=== PATIENT | male | born 1980 | race Caucasian/White ===

== ENCOUNTER 2023-07-10 15:54 | Emergency (ER) | payer OTHER, SELFPAY ==
[2023-07-10 16:11] VITALS: BP 130/89; PULSE 72; RESP 16; TEMP 35.9; O2SAT 99
--- NOTE | 2023-07-10 16:24 | ED.EXTPRO ---
HPI - Extremity Problem General Chief complaint: Extremity Problem,Nontraumatic Stated complaint: right lower leg pain Time Seen by Provider: 07/10/23 16:29 Source: patient and RN notes reviewed Mode of arrival: ambulatory Limitations: no limitations History of Present Illness HPI Narrative: 6-year-old male presents concern for pain and swelling to the right anterior lower leg. Reports he noticed it last Monday. Reports the pain and swelling are getting worse. Reports he just started a job where he is on his feet more. He reports he has tried [id number] remedies, compression without relief. Reports it is tender to touch. Denies warmth, redness, calf pain, calf swelling, ankle swelling. MD Complaint: extremity pain Related Data Home Medications Medication Instructions Recorded Confirmed No Home Medications 07/10/23 07/10/23 Allergies Allergy/AdvReac Type Severity Reaction Status Date / Time levofloxacin Allergy Mild Nausea and Verified 07/10/23 16:00 Vomiting DARVOCET Allergy Severe Nausea and Uncoded 07/10/23 16:00 Vomiting MEPERIDINE HCL Allergy Mild Nausea and Uncoded 07/10/23 16:00 Vomiting Review of Systems Review of Systems: CONSTITUTIONAL: Denies malaise, chills, sweats, or fever. CARDIOVASCULAR: Denies chest pain, palpitations, or edema. RESPIRATORY: Denies cough or dyspnea. SKIN: Denies rash or itching, bruising, redness MUSCULOSKELETAL: Reports right lower leg tenderness and swelling NEUROLOGIC: Denies numbness, weakness All systems reviewed & are unremarkable except as noted in HPI and below PMFSH Comments At time of signature, agree with nursing past medical, surgical, social and family history. There is no relevant family history pertinent to the presenting complaint Exam Narrative: GENERAL: Well-appearing, well-nourished, and in no acute distress. HEAD: Normocephalic, atraumatic. EYES: PERRLA, conjunctivae clear NECK: Supple. CHEST: Speaks in full sentences. No respiratory distress. HEART: Regular rate and rhythm. Normal and equal peripheral pulses. EXTREMITIES: Right lower extremity has normal strength and sensation, normal range of motion. Localized edema and tenderness to the anterior right lower extremity. Proximally 2 cm in diameter area of fluctuation noted to the right anterior lower leg. No erythema, warmth or ecchymosis. 5/5 strength with knee, ankle, digit flexion and extension. Normal sensation with sensitivity to light touch and pain. No open wounds, no skin tenting, no devitalized tissue or atrophy, no trophic changes, no obvious deformity, alignment normal, nearby joints and structures intact. Distal pulses palpable and equal bilaterally, skin warm, dry, pink. Capillary refill less than 3 seconds. SKIN: Warm, dry, no rash. NEURO: Alert and oriented x3. PSYCH: Normal mood and affect Extrem: Upper/lower leg/hip images: 1. Approximately 2 cm area of fluctuation with sharp margins noted, no erythema, induration, warmth or suspicion for infection. Surrounded by a proximally 10 cm of edema without induration, warmth, erythema. Course Course Emergency Course: Patient is aware of, understands and agrees to treatment plan. Anticipatory guidance given. Patient agrees to follow-up as directed and is aware of reasons to seek care at the emergency department. Portions of this record may have been created with voice recognition software Level of Care: Express Care Visit Vital Signs Vital signs: Vital Signs Temperature 96.6 F L 07/10/23 16:11 Pulse Rate 72 07/10/23 16:11 Respiratory Rate 16 07/10/23 16:11 Blood Pressure 130/89 07/10/23 16:11 Pulse Oximetry 99 07/10/23 16:11 Oxygen Delivery Room Air 07/10/23 16:11 Temperature 96.6 F L 07/10/23 16:11 Pulse Rate 72 07/10/23 16:11 Respiratory Rate 16 07/10/23 16:11 Blood Pressure 130/89 07/10/23 16:11 Pulse Oximetry 99 07/10/23 16:11 Oxygen Delivery Room Air 07/09
== END 2023-07-10 16:46 | disposition home or self-care (01) ==
PROVIDERS: Emergency Provider Nurse Practitioner
DX: R22.41 Localized swelling, mass and lump, right lower limb (principal)
CPT/HCPCS: 99211; G0463

== ENCOUNTER 2023-07-11 16:09 | Emergency (ER) | payer OTHER, SELFPAY ==
--- NOTE | 2023-07-11 16:34 | PC.NURSE ---
called for triage. no answer.
--- NOTE | 2023-07-11 16:56 | PC.NURSE ---
called pt again for triage, no answer.
== END 2023-07-11 16:56 | disposition left against medical advice (07) ==
LOC: ANHED 17:06
DX: Z53.21 Procedure and treatment not carried out due to patient leaving prior to being seen by health care provider (principal)
CPT/HCPCS: 99199

== ENCOUNTER 2023-11-13 01:27 | Inpatient (IN) | payer OTHER, SELFPAY ==
[2023-11-13] VITALS (38 sets, daily range): BP systolic 98–168; BP diastolic 55–107; PULSE 58–116; RESP 13–27; TEMP 36.1–38.7; O2SAT 90–100
--- NOTE | ~2023-11-13 | US_ITS ---
RIGHT UPPER EXTREMITY VENOUS ULTRASOUND Ordering provider: Di Vasquez APRN History: . right arm numbness, pins and needle sensation . Comparison: None. FINDINGS: --JUGULAR: Patent and free of thrombus. Normal compressibility, phasic flow and augmentation. --SUBCLAVIAN: Patent and free of thrombus. Normal compressibility, phasic flow and augmentation. --AXILLARY: Patent and free of thrombus. Normal compressibility, phasic flow and augmentation. --BRACHIAL: Patent and free of thrombus. Normal compressibility, phasic flow and augmentation. --CEPHALIC: Patent and free of thrombus. Normal compressibility, phasic flow and augmentation. --BASILIC: Thrombosed --RADIAL: Patent and free of thrombus. Normal compressibility, phasic flow and augmentation. --ULNAR: Patent and free of thrombus. Normal compressibility, phasic flow and augmentation. IMPRESSION: Thrombosed basilic vein. Otherwise, Negative right upper extremity venous US. No deep vein thrombosis. Reviewed, dictated and finalized at location A.
--- NOTE | ~2023-11-13 | CT_ITS ---
EXAMINATION: CT abdomen pelvis w con DATE: 11/13/2023 02:47 INDICATION: Right lower quadrant abdominal pain TECHNIQUE: Computed tomography (CT) of the abdomen and pelvis was performed without intravenous contr ast. Automated exposure control and iterative reconstruction technique were employed. The dose-length product was 607.49 mGy-cm. COMPARISON: None FINDINGS: Mild dependent atelectasis in the bilateral lower lobes. Heart size is normal. No pericardial or pleu ral effusion. There is refluxed fluid extending through the patent gastroesophageal junction. Visuali zed distal esophagus. Focal hepatic steatosis at the ligamentum teres. Gallbladder, spleen, pancreas, bilateral adrenal glands are normal. 8 mm left renal cyst. Nonobstructing 17 x 7 x 8 mm stone at the right ureteropelvic junction with right-sided hydronephrosis, delayed nephrogram kidney and mild per inephric stranding. Couple diverticula at the junction of the descending and sigmoid colon without ad jacent comparison to suggest diverticular colitis. Small bowel and appendix are normal. Small fat-con taining umbilical hernia. Bladder is normal. Prostatomegaly. No free intraperitoneal gas or fluid. No pathologically enlarged abdominal or pelvic lymphadenopathy. Mild lumbar and lower thoracic spondylo sis. IMPRESSION: 1. Large obstructing stone at the right ureteropelvic junction with mild right hydronephrosis and per inephric stranding. Correlate with urinalysis to exclude associated urinary tract infection. Reviewed, dictated and finalized at location A. IMPRESSION: 1. Large obstructing stone at the right ureteropelvic junction with mild right hydronephrosis and perinephric stranding. Correlate with urinalysis to exclude associated urinary tract infection.
--- NOTE | ~2023-11-13 | US_ITS ---
US abdomen limited INDICATION: Elevated liver enzymes. PROCEDURE: Realtime right upper abdominal ultrasound. COMPARISON: No prior studies for comparison. FINDINGS: The pancreas is normal without focal mass or pancreatic ductal dilation. Liver echotexture is normal without focal mass or intrahepatic biliary dilatation. There is normal directional flow i n the portal vein. The gallbladder is normal without stones, gallbladder wall thickening or pericholecystic fluid. Comm on bile duct measures 3 mm. No sonographic Hughes's sign. IMPRESSION: 1: Normal limited abdominal ultrasound. Reviewed, dictated and finalized at location B.
--- NOTE | ~2023-11-13 | XR_ITS ---
EXAMINATION: XR retrograde pyelo w/stent RT DATE: 11/13/2023 07:35 INDICATION: Right internal ureteral stent placement TECHNIQUE: Fluoroscopic images from a right internal ureteral stent placement are submitted for juanita rojas 23 seconds of fluoroscopy time. FINDINGS: There is a right double-J internal ureteral stent projecting in expected position, with proximal Wall[place] loop at the level of the renal pelvis. IMPRESSION: 1. Right internal ureteral stent placement. Please refer to real-time procedural findings for fletcher barlow. Reviewed, dictated and finalized at location B. IMPRESSION: 1. Right internal ureteral stent placement. Please refer to real-time procedu ral findings for details.
--- NOTE | ~2023-11-13 | XR_ITS ---
EXAMINATION: XR abdomen/kub 1V DATE: 11/16/2023 09:31 INDICATION: Abdominal pain TECHNIQUE: A supine view of the abdomen on 2 radiographs was obtained. COMPARISON: None. FINDINGS: Right internal ureteral stent in expected position with loops formed over the expected location of th e right renal pelvis and the bladder. 10 x 8 x 5 mm stone along side the stent at the ureteropelvic j unction. Normal bowel gas pattern. Opacities at the bilateral lung bases, right greater than left whi ch could represent atelectasis or pneumonia. Mild osteoarthritis at the right hip with subarticular c ystic change along the superolateral right acetabulum. IMPRESSION: 1. 10 x 8 x 5 mm stone at the right ureteropelvic junction alongside a right internal ureteral stent which is in expected position. 2. Bibasilar airspace opacities which could represent atelectasis or pneumonia. Reviewed, dictated and finalized at location A. IMPRESSION: 1. 10 x 8 x 5 mm stone at the right ureteropelvic junction alongside a right in ternal ureteral stent which is in expected position. 2. Bibasilar airspace opacities which could represent atelectasis or pneumonia.
--- NOTE | ~2023-11-13 | XR_ITS ---
XR abdomen/kub 1V 11/14/2023 08:26 INDICATION: Right ureteral stone TECHNIQUE: KUB COMPARISON: None FINDINGS: Bowel gas pattern is normal. There is a right internal ureteral stent in expected position. No definite renal or ureteral stone is visualized. There is no evidence of free air, mass, organomeg unruly, ascites or obstruction. No abnormal calculi are seen. The bones appear intact. IMPRESSION: 1: No acute abdominal abnormality identified. Reviewed, dictated and finalized at location B.
--- NOTE | ~2023-11-13 | CT_ITS ---
CT chest abdomen pelvis w con Ordering provider: Di Vsaquez APRN History: 43 years Male with . abdominal pain . Comparison: None. Technique: CT chest with IV contrast. CT abdomen and pelvis CT abdomen and pelvis with IV and with or al contrast. Radiation reduction technique utilized. DLP is 1488.9 mGy-cm. 100 MLO Omnipaque 350 was given IV FINDINGS: CHEST: --VISUALIZED THORACIC INLET: Normal. --MEDIASTINUM: Aorta/coronary arteries: The thoracic aorta is normal. Heart/other: The heart is not enlarged. Lymph nodes: No mediastinal or hilar adenopathy. Small prevascular lymph nodes are noted. Precarinal lymph node is seen measuring 1.8 cm. --LUNGS: Bilateral basal atelectasis with minimal bilateral pleural effusion No pulmonary nodules or masses. No infiltrates. No pneumothorax. --MUSCULOSKELETAL: Soft tissues: The superficial soft tissues are normal. Bones: normal spine.. ABDOMEN/PELVIS: --MUSCULOSKELETAL: Bones: Normal spine. No suspicious bony lytic or sclerotic lesions. Superficial soft tissues: The superficial soft tissues are normal. --UPPER ABDOMINAL ORGANS: Liver: Normal. Gallbladder: Contracted. Spleen: Normal. Stomach/duodenum: Normal. Pancreas: Normal. Adrenals: Normal. Kidneys: Tiny cysts in the left kidney midpole. Right double-J stent. Stone in the right pelvis is no hailey. --PELVIC ORGANS: The bladder is normal. No bladder stones. --BOWEL AND MESENTERY: Colon: No evidence of diverticulitis sigmoid colon. Appendix is not demonstrated. Small Bowel: Normal. No obstruction. Peritoneum/mesentery: No free air or free fluid. No mesenteric lymphadenopathy. --RETROPERITONEUM: Normal aorta. No retroperitoneal lymphadenopathy. IMPRESSION: CHEST: 1. Bilateral basal atelectasis with minimal bilateral pleural effusion. ABDOMEN/PELVIS: 1. Right double-J stent with right renal pelvis stone. 2. No acute appendicitis, diverticulitis or intestinal obstruction. Reviewed, dictated and finalized at location A.
[2023-11-13 01:43] LABS: Basophils Percent Auto 0.2 % (0.2-1.2); Eosinophils Absolute Auto 0.1 K/mm3 (0-0.3); Eosinophils Percent Auto 0.6 % (0-4.4); Hematocrit 43.9 % (42.0-52.0); Hemoglobin 14.8 g/dL (14.0-18.0); Immature Granulocyte Absolute 0.06 K/mm3 (0.00-0.031); Immature Granulocyte Percent A 0.4 % (0-0.5); Lymphocytes Absolute Auto 1.27 K/mm3 (0.9-3.2); Lymphocytes Percent Auto 8.2 % (18.3-44.2); Mean Corpuscular HGB Conc 33.7 g/dl (32-36); Mean Corpuscular Hemoglobin 31.6 pg (26-34); Mean Corpuscular Volume 93.6 fl (80-100); Mean Platelet Volume 11.3 fl (7.4-10.4); Monocytes Absolute Auto 1.6 K/mm3 (0.1-0.6); Monocytes Percent Auto 10.1 % (2.6-8.5); Neutrophils Absolute Auto 12.5 K/mm3 (1.3-6.7); Neutrophils Percent Auto 80.5 % (45.5-73.1); Platelet Count Result 215 k/mm3 (150-375); Red Blood Count 4.69 M/mm3 (4.6-6.20); Red Cell Distribution Width 13.8 % (11.5-14.5); White Blood Count 15.5 K/mm3 (4.5-10.0)
[2023-11-13 01:53] LABS: Alanine Aminotransferase 30 U/L (6-50); Albumin Level 4.2 g/dL (3.5-5.1); Alkaline Phosphatase 69 U/L (38-126); Anion Gap 10 mmol/L (4-12); Aspartate Amino Transferase 29 U/L (17-59); Bilirubin,Total 1.1 mg/dL (0.2-1.3); Blood Urea Nitrogen 21 mg/dL (9-20); Calcium 9.1 mg/dL (8.4-10.2); Carbon Dioxide 25 mmol/L (22-30); Chloride 102 mmol/L (98-107); Estimated CRCL calculation 98 ml/min; Estimated Glomerular Filt Rate > 60; Glucose 122 mg/dL (65-110); Lipase 50 U/L (23-300); Potassium 3.8 mmol/L (3.4-5.0); Sodium 137 mmol/L (137-145)
[2023-11-13] MEDS: SODIUM CHLORIDE 0.9% IV 3,000 ML 999 ML IV CONT (02:20)
[2023-11-13] MEDS: HYDROmorphone HCL INJ (*CRX) 1 MG/ML SYR IV PUSH ×3 (02:21→04:07)
[2023-11-13] MEDS: ONDANSETRON INJ 4 MG/2 ML VIAL IV PUSH (02:21)
--- NOTE | 2023-11-13 02:31 | PC.NURSE ---
Patient taken to CT via stretcher at this time.
--- NOTE | 2023-11-13 02:41 | ED.GENADULT ---
HPI - General Adult General Chief complaint: Abdominal Pain Stated complaint: RLQ ABD PAIN, TENDER TO PALPATION Time Seen by Provider: 11/13/23 01:44 History of Present Illness HPI narrative: This is a 43-year-old male with history of kidney stones presenting with right flank pain. Pain started yesterday morning. It is a sharp pain in the right lower back that wraps around into his right lower quadrant. He has had associated nausea and vomiting. Denies fevers chills, dysuria or hematuria. Pain is getting worse. Related Data Home Medications Medication Instructions Recorded Confirmed No Home Medications 07/10/23 07/10/23 Allergies Allergy/AdvReac Type Severity Reaction Status Date / Time levofloxacin Allergy Mild Nausea and Verified 11/13/23 01:34 Vomiting DARVOCET Allergy Severe Nausea and Uncoded 07/11/23 16:10 Vomiting MEPERIDINE HCL Allergy Mild Nausea and Uncoded 07/11/23 16:10 Vomiting Exam Narrative: APPEARANCE: Patient appears to be in significant pain Head: atraumatic. EYES: EOMI, NOSE: Atraumatic NECK: Trachea midline RESPIRATORY: No increased rate of breathing CARDIOVASCULAR: RRR, ABDOMINAL: Tenderness in the right lower quadrant, rebound pain, right VA tenderness MUSCULOSKELETAl: No obvious deformities NEURO: Alert. Moving 4/4 extremities SKIN:: Warm, dry. Normal color PSYCHIATRIC: Normal affect Course Vital Signs Vital signs: Vital Signs Temperature 98.2 F 11/13/23 01:28 Pulse Rate 62 11/13/23 01:28 Respiratory Rate 16 11/13/23 01:28 Blood Pressure 157/88 H 11/13/23 01:28 Pulse Oximetry 99 11/13/23 01:28 Oxygen Delivery Room Air 11/13/23 01:28 Temperature 98.2 F 11/13/23 01:28 Pulse Rate 71 11/13/23 01:38 Respiratory Rate 19 11/13/23 01:38 Blood Pressure 145/89 H 11/13/23 01:38 Pulse Oximetry 98 11/13/23 01:38 Oxygen Delivery Room Air 11/13/23 01:28 Medical Decision Making [facility] Narrative Medical decision making narrative: -Course: 43-year-old male presenting right-sided flank pain. CT showed an 8 mm x 15mm stone in the proximal ureter. Urine indicative of infection. patient has a white count of 15. Patient given fluid resuscitation, antibiotics and pain medication for infected stone. Vital signs stable. Patient made NPO. Urology was consulted and plans for intervention later today. Patient will be admitted to the hospital. -DDX includes but is not limited to: Kidney stone, appendicitis, muscle strain, pyelonephritis -Co-morbidities complicating care: History of kidney stone -Independent interpretation of studies: White count 15.5, metabolic panel unremarkable CT showed proximal 1.5 x 0.8cm stone in the proximal ureter. -Discussion of Management/Consultants:Angela Cruz -Interventions: 3 L normal saline, ceftriaxone, Dilaudid 1 mg x 3, Zofran -Shared decision making / Disposition: Admitted Vital Signs Vital Signs: Vital Signs Temperature 98.2 F 11/13/23 01:28 Pulse Rate 62 11/13/23 01:28 Respiratory Rate 16 11/13/23 01:28 Blood Pressure 157/88 H 11/13/23 01:28 Pulse Oximetry 99 11/13/23 01:28 Oxygen Delivery Room Air 11/13/23 01:28 Temperature 98.2 F 11/13/23 01:28 Pulse Rate 71 11/13/23 01:38 Respiratory Rate 19 11/13/23 01:38 Blood Pressure 145/89 H 11/13/23 01:38 Pulse Oximetry 98 11/13/23 01:38 Oxygen Delivery Room Air 11/13/23 01:28 Lab Data 11/13/23 01:36 11/13/23 01:36 Labs: Lab Results 11/13/23 11/13/23 Range/Units 01:36 03:10 WBC 15.5 H (4.5-10.0) K/mm3 RBC 4.69 (4.6-6.20) M/mm3 Hgb 14.8 (14.0-18.0) g/dL Hct 43.9 (42.0-52.0) % MCV 93.6 (80-100) fl MCH 31.6 (26-34) pg MCHC 33.7 (32-36) g/dl RDW 13.8 (11.5-14.5) % Plt Count 215 (150-375) k/mm3 MPV 11.3 H (7.4-10.4) fl Immature Gran % (Auto) 0.4 (0-0.5) % Neut % (Auto) 80.5 H (45.5-73.1) % Lymph % (Auto) 8.2 L (18.3-44.2) % [place] % (Auto) 10.1 H (2.6-8.5) % Eos % (Auto) 0.6 (0-4.4) % Baso % (Auto) 0.2 (0.2-1.2) % Lymph # (Auto) 1.27 (0.9-3.2) K/mm3 [place] # (Auto) 1.6 H (0.1-0.6) K/mm3 Eos # (Auto) 0.1 (0-0.3) K/mm3 Baso # (Auto) 0.0 (0.0-0.1) K/mm3 Abs Immat Gran (auto) 0.06 H (0.00-0.031) K/mm3 Absolute Neuts (auto) 12.5 H (1.3-6.7) K/mm3 Absolute Nucleated RBC 0.000 (0.0-0.012) K/mm3 Nucleated RBC % 0.0 (0.0-0.2) % Sodium 137 (137-145) mmol/L Potassium 3.8 (3.4-5.0) mmol/L Chloride 102 (98-107) mmol/L Carbon Dioxide 25 (22-30) mmol/L Anion Gap 10 (4-12) mmol/L BUN 21 H (9-20) mg/dL Creatinine 0.90 (0.7-1.3) mg/dL Estim Creat Clear Calc 98 ml/min Estimated GFR > 60 (59 - ) Glucose 122 H (65-110) mg/dL Calcium 9.1 (8.4-10.2) mg/dL Total Bilirubin 1.1 (0.2-1.3) mg/dL AST 29 (17-59) U/L ALT 30 (6-50) U/L Alkaline Phosphatase 69 (38-126) U/L Total Protein 7.0 (6.3-8.2) g/dL Albumin 4.2 (3.5-5.1) g/dL Lipase 50 (23-300) U/L Urine Color Yellow (Yellow) Urine Appearance Turbid H (Clear) Urine pH 7.5 (5.0-9.0) Ur Specific [place] 1.015 (1.001-1.035) Urine Protein 1+ H (Negative) mg/dL Urine Glucose (UA) Negative (Negative) mg/dL Urine Ketones 2+ H (Negative) mg/dL Ur Blood (Man) 2+ H (Negative) Urine Nitrate Positive H (Negative) Urine Bilirubin Negative (Negative) Urine Urobilinogen 1.0 (<2.0) mg/dL Leukocyte Esterase Rfl 1+ H (Negative) SINDHU/UL Urine RBC 11-20 H (0-2) /hpf Urine WBC >100 H (0-3) /hpf Ur Squamous Epith Cells None seen (Few) /hpf Urine Bacteria 2+ H /hpf Urine Casts 0-2 Discharge Plan Discharge Clinical Impression: Kidney stone, Pyelonephritis Patient Disposition: Still a Patient Condition: Serious Prescriptions: No Action No Home Medications Follow-up/Referrals: Marck Thompson MD [Primary Care Provider] -
[2023-11-13 03:20] LABS: Appearance Urine Turbid (Clear); Bacteria Urine 2+ /hpf; Bilirubin Urine Negative (Negative); Blood Urine 2+ (Negative); Color Urine Yellow (Yellow); Glucose Urine UA Negative (Negative); Ketones Urine 2+ mg/dL (Negative); Leukocyte Esterase Ur 1+ LEU/UL (Negative); Nitrate Urine Positive (Negative); Non Pathogenic Casts 0-2; Protein Urine 1+ mg/dL (Negative); Squamous Epithelial Cell Urine None Seen /hpf (Few); WBC Urine >100 /hpf (0-3); pH Urine 7.5 (5.0-9.0)
[2023-11-13 03:33] LABS: Specific Grav Ur 1.015 (1.001-1.035)
[2023-11-13 03:34] LABS: Add Urine Microscopic? YES
--- NOTE | 2023-11-13 05:17 | PC.NURSE ---
This RN went to inform patient that he was being admitted and had a room, patient was resting on stretcher with eyes closed, visible chest rise and fall, no acute distress noted. Patient was then awoke with shivering, and stating I'm freezing! Patient temp checked, 101.1 oral temp. ERP notified. Patient the requested to have something to drink. This RN notified patient that he is NPO and cannot have anything to drink. Patient given mouth swab for wetting his mouth. Patient immediately puts swab in mouth and sucks all the water out and requests I need more of those cause I need something to drink. This RN informed patient that the mouth swab is to wet his mouth, not drink water. Patient verbalized understanding.
--- NOTE | 2023-11-13 05:34 | WPDURCON ---
Assessment and Plan Assessment and plan (1) Right ureteral calculus: Code(s): N20.1 - Calculus of ureter Status: Acute Assessment and Plan: given his sudden fever with rigors an obstructing stone with infected urine will proceed with cysto right retrograde right stent placement as soon as possible. Stone will need to be addressed at time. (2) Sepsis: Code(s): A41.9 - Sepsis, unspecified organism Status: Acute Assessment and Plan: See above Urology Consult Note HPI Date Seen: 11/13/23 Time Seen: 05:34 Requesting Physician: Kyra Miller DO Primary Care Provider: Marck Thompson MD Consult Narrative Reason for consult: Obstructing right proximal ureteral calculus with sepsis Narrative: Gatito Melo is a 43 year old male presented emergency room with 24 hour history of right flank pain. [place] [address], creatinine 0.9 and a positive urinalysis. CT scan revealed a 1.5 x 0.8 cm right proximal stone with obstruction. At the time of the initial full call patient was hemodynamically stable and afebrile. He subsequently has developed some rigors and fever to 101. He will be taken emergently to the operating room for cysto with right ureteral stent placement. Review of Systems Review of Systems: All systems reviewed & are unremarkable except as noted in HPI and below Meds Home Medications and Allergies Home Medications Medication Instructions Recorded Confirmed Type No Home Medications 07/10/23 07/10/23 History Allergies Allergy/AdvReac Type Severity Reaction Status Date / Time levofloxacin Allergy Mild Nausea and Verified 11/13/23 01:34 Vomiting DARVOCET Allergy Severe Nausea and Uncoded 07/11/23 16:10 Vomiting MEPERIDINE HCL Allergy Mild Nausea and Uncoded 07/11/23 16:10 Vomiting Vital Signs Vital Signs - 24 hr 11/13/23 01:28 11/13/23 01:38 11/13/23 01:35 Temperature 36.8 C Pulse Rate 62 71 66 Respiratory Rate 16 19 20 Blood Pressure 157/88 H 145/89 H Pulse Oximetry 99 98 100 Oxygen Delivery Room Air 11/13/23 01:45 11/13/23 02:00 11/13/23 02:03 Temperature Pulse Rate 67 59 L 58 L Respiratory Rate 24 H 18 18 Blood Pressure 139/85 Pulse Oximetry 95 100 100 Oxygen Delivery 11/13/23 02:15 07/22/24 02:43 11/13/23 02:45 Temperature Pulse Rate 64 66 67 Respiratory Rate 22 H 22 H 16 Blood Pressure Pulse Oximetry 100 91 Oxygen Delivery 11/13/23 03:00 11/13/23 03:02 11/13/23 03:15 Temperature Pulse Rate 77 70 76 Respiratory Rate 22 H 24 H 15 Blood Pressure 129/107 H Pulse Oximetry 100 98 90 Oxygen Delivery 11/13/23 03:31 11/13/23 03:45 11/13/23 04:00 Temperature Pulse Rate 64 68 79 Respiratory Rate 13 17 19 Blood Pressure 146/80 H Pulse Oximetry 96 Oxygen Delivery 11/13/23 04:01 11/13/23 04:15 11/13/23 04:30 Temperature Pulse Rate 75 83 79 Respiratory Rate 18 25 H 17 Blood Pressure 136/76 Pulse Oximetry 94 Oxygen Delivery 11/13/23 04:45 11/13/23 05:16 11/13/23 05:29 Temperature 38.4 C H Pulse Rate 82 103 H 102 H Respiratory Rate 20 27 H 27 H Blood Pressure 168/98 H Pulse Oximetry 92 Oxygen Delivery Exam Const: General: cooperative and ill appearing Resp: Effort & Inspection: tachypneic Cardio: Rate: tachycardic Results Labs 11/13/23 01:36 11/13/23 01:36 Labs: Short CBC 11/13/23 Range/Units 01:36 WBC 15.5 H (4.5-10.0) K/mm3 Hgb 14.8 (14.0-18.0) g/dL Hct 43.9 (42.0-52.0) % Plt Count 215 (150-375) k/mm3 BMP 11/13/23 01:36 Sodium 137 Potassium 3.8 Chloride 102 Carbon Dioxide 25 BUN 21 H Creatinine 0.90 Glucose 122 H Calcium 9.1 Liver Function 11/13/23 Range/Units 01:36 Total Bilirubin 1.1 (0.2-1.3) mg/dL AST 29 (17-59) U/L ALT 30 (6-50) U/L Alkaline Phosphatase 69 (38-126) U/L Albumin 4.2 (3.5-5.1) g/dL Urine 11/13/23 Range/Units 03:10 Urine Color Yellow (Yellow) Urine Appearance Turbid H (Clear) Urine pH 7.5 (5.0-9.0) Ur Specific [place] 1.015 (1.001-1.035) Urine Protein 1+ H (Negative) mg/dL Urine Glucose (UA) Negative (Negative) mg/dL
--- NOTE | 2023-11-13 05:50 | PC.NURSE ---
As this RN went to take patient up to room, this RN was stopped and told patient is now going to the OR. The patient was brought back to the room, room 13, with in room.
--- NOTE | 2023-11-13 05:59 | ECG_ITS ---
Test Date: 2023-11-13 06:10:20 Measurements Intervals Elizabeth Rate: 106 P: 26 WI: 156 QRS: 58 QRSD: 110 T: 42 QT: 320 QTc: 426 Interpretive Statements SINUS TACHYCARDIA INCOMPLETE RIGHT BUNDLE BRANCH BLOCK BORDERLINE ECG No previous ECG available for comparison Electronically Signed On 11-13-2023 06:39:40 CDT by Ant Lucio D.O.
[2023-11-13] MEDS: LACTATED RINGERS 1,000 ML 30 ML IV CONT ×2 (06:45→07:36)
--- NOTE | 2023-11-13 06:51 | P.PNAN_ITS ---
Anes - Initial Pre Proc Eval Procedure: Operation Date: 11/13/23 07:00 Proposed Procedures p Cystoscopy,Right Retrograde Pyelogram,Right Stent Placement - Timbo Cruz MD Date/Time: 11/13/23 06:51 Surgeon: Kyra Miller DO Pre Op Diagnosis: Infected stone Patient Data Age: 43 Gender: M Height: 1.78 m Weight: 86.3 kg Last Vital Signs Temp 101.1 F H 11/13/23 05:16 Pulse 102 H 11/13/23 05:32 Resp 18 11/13/23 05:32 BP 168/82 H 11/13/23 05:32 Pulse Ox 92 11/13/23 05:32 O2 Del Method Room Air 11/13/23 01:28 Allergies Allergy/AdvReac Type Severity Reaction Status Date / Time levofloxacin Allergy Mild Nausea and Verified 11/13/23 01:34 Vomiting DARVOCET Allergy Severe Nausea and Uncoded 07/11/23 16:10 Vomiting MEPERIDINE HCL Allergy Mild Nausea and Uncoded 07/11/23 16:10 Vomiting Home Medications Medication Instructions Recorded Confirmed Type No Home Medications 07/10/23 07/10/23 History Laboratory Tests 11/13/23 11/13/23 01:36 03:10 WBC 15.5 H K/mm3 (4.5-10.0) RBC 4.69 M/mm3 (4.6-6.20) Hgb 14.8 g/dL (14.0-18.0) Hct 43.9 % (42.0-52.0) MCV 93.6 fl (80-100) MCH 31.6 pg (26-34) MCHC 33.7 g/dl (32-36) RDW 13.8 % (11.5-14.5) Plt Count 215 k/mm3 (150-375) MPV 11.3 H fl (7.4-10.4) Immature Gran % (Auto) 0.4 % (0-0.5) Neut % (Auto) 80.5 H % (45.5-73.1) Lymph % (Auto) 8.2 L % (18.3-44.2) [place] % (Auto) 10.1 H % (2.6-8.5) Eos % (Auto) 0.6 % (0-4.4) Baso % (Auto) 0.2 % (0.2-1.2) Lymph # (Auto) 1.27 K/mm3 (0.9-3.2) [place] # (Auto) 1.6 H K/mm3 (0.1-0.6) Eos # (Auto) 0.1 K/mm3 (0-0.3) Baso # (Auto) 0.0 K/mm3 (0.0-0.1) Abs Immat Gran (auto) 0.06 H K/mm3 (0.00-0.031) Absolute Neuts (auto) 12.5 H K/mm3 (1.3-6.7) Absolute Nucleated RBC 0.000 K/mm3 (0.0-0.012) Nucleated RBC % 0.0 % (0.0-0.2) Sodium 137 mmol/L (137-145) Potassium 3.8 mmol/L (3.4-5.0) Chloride 102 mmol/L (98-107) Carbon Dioxide 25 mmol/L (22-30) Anion Gap 10 mmol/L (4-12) BUN 21 H mg/dL (9-20) Creatinine 0.90 mg/dL (0.7-1.3) Estim Creat Clear Calc 98 ml/min Estimated GFR > 60 (59 - ) Glucose 122 H mg/dL (65-110) Calcium 9.1 mg/dL (8.4-10.2) Total Bilirubin 1.1 mg/dL (0.2-1.3) AST 29 U/L (17-59) ALT 30 U/L (6-50) Alkaline Phosphatase 69 U/L (38-126) Total Protein 7.0 g/dL (6.3-8.2) Albumin 4.2 g/dL (3.5-5.1) Lipase 50 U/L (23-300) Urine Color Yellow (Yellow) Urine Appearance Turbid H (Clear) Urine pH 7.5 (5.0-9.0) Ur Specific [place] 1.015 (1.001-1.035) Urine Protein 1+ H mg/dL (Negative) Urine Glucose (UA) Negative mg/dL (Negative) Urine Ketones 2+ H mg/dL (Negative) Ur Blood (Man) 2+ H (Negative) Urine Nitrate Positive H (Negative) Urine Bilirubin Negative (Negative) Urine Urobilinogen 1.0 mg/dL (<2.0) Leukocyte Esterase Rfl 1+ H SINDHU/UL (Negative) Urine RBC 11-20 H /hpf (0-2) Urine WBC >100 H /hpf (0-3) Ur Squamous Epith Cells None seen /hpf (Few) Urine Bacteria 2+ H /hpf Urine Casts 0-2 Patient hx anesthesia problems: none Family hx anesthesia problems: none Results Review: All pre-operative results and documents have been reviewed as part of the pre- operative evaluation. Anes - Eval Final PreProcedure Day of Procedure 11/13/23 06:51 Patient weight: normal Heart: regular rate and rhythm and tachycardia Lungs: clear to auscultation Airway: Mallampati scale class II and special considerations (Upper incisors w small chips. ) Neurological: alert and oriented ASA classification: II Emergent: yes Anesthetic plan: proceed Anesthesia type and monitoring: general ETT and standard monitoring Results Review: All pre-operative results and documents have been reviewed as part of the pre- operative evaluation. Pt w infected/septic ureteral stone. Smoker, 1/2 ppd. Informed Consent: The patient's anesthetic plan and its attendant risks and benefits were discussed with the patient/family/POA. Questions were solicited and answers provided to the satisfaction of the patient/family/POA.
--- NOTE | 2023-11-13 06:59 | WPDHPUPDATE1 ---
History and Physical Update Update Date/Time: 11/13/23 06:59 History and Physical has been reviewed, including an updated exam of the patient. There are NO changes in the patient's condition. Risks, benefits, and alternatives have been discussed and questions answered. Patient agrees to proceed with procedure. Proceed with cysto, right retrograde, right stent placement.
[2023-11-13] MEDS: LIDOCAINE HCL 2% GEL UROJET 10 ML PKG MUCOUS MEM (07:32)
--- NOTE | 2023-11-13 07:32 | P.OP_ITS ---
Procedure Note - Detailed Date of Procedure 11/13/23 Pre-op Diagnosis Infected stone Right ureteral calculus Post-op Diagnosis Same Procedure Performed Cystoscopy, right retrograde pyelogram, right ureteral stent placement 4.8 [place] contour Surgeon Timbo Cruz MD Anesthesia General Description of Procedure Patient was taken to the operative suite correctly identified. Once anesthesia was obtained he was placed in dorsal lithotomy position and prepped and draped usual sterile fashion. Twenty-two [place] scope was inserted the bladder. There is no tumors noted. The ureteral catheter was placed in a pyelogram was performed. Guidewire was inserted up to the renal pelvis. 4.8 [place] contour stent was then placed with the proximal end coiled in the renal pelvis and the distal in the bladder. Bladder was drained. 2% viscous lidocaine was inserted into the urethra. Patient is taken recovery stable condition. KUB will be obtained. Will address the stone at a later point time. This completes dictation. Please send a copy of op note to my office Drains Yes Packing No Pathology None sent Complications No immediate complications Condition Stable Disposition PACU
--- NOTE | 2023-11-13 07:59 | P.HP_ITS ---
H&P: HPI History of Present Illness Date/Time: 11/13/23 07:59 Chief Complaint: Right lower quadrant abdominal pain Narrative: This is a 43-year-old male with a significant past medical history of kidney stones presents to the hospital with flank pain. Patient states that he started noticing symptoms yesterday with right sided flank pain. He states he took his trazodone and slept for about 3 hours and woke up with worsening flank pain and burning with urination. He states that where he works it is hot and he usually drinks about 2 gallons of water a day. He states he has had kidney stones in the past but he can't remember if they told him what type of stones he had. Last time he was worked up for kidney stones, he was seen at a hospital in [place], [place]. He denies any family history of kidney stones. He also denies drinking soda or energy drinks. Patient denies any nausea, vomiting, diarrhea, chest pain, or shortness of breath. Patient endorses fever with chills, flank pain, and burning pain with urination. Work up in the hospital included an abdomen pelvis CT showing large right ureteral obstructing stone measuring 17 x 7x 8 mm stone with right sided hydronephrosis. Initial labs showed a white blood cell count of 15.5, otherwise unremarkable. UA was obtained and showed 1+ urine protein, 2+ urine ketones, 2+ urine blood, positive nitrate, 1+ leukocyte, greater than 100 urine WBC, 11-20 urine RBC, 2+ bacteria. Blood and urine cultures are obtained and are pending. Patient was initially afebrile while in the ED how ever later went into septic shock with temp of 101.1?, rigors, heart rate 103, respiratory rate 27. Patient was given IV fluids, pain medication, and started on Rocephin while in the ED. Urology was also consulted and took patient to the OR for cystoscopy with stent placement to the right ureter today. Review of Systems Review of Systems: All systems reviewed & are unremarkable except as noted in HPI and below Constitutional: Constitutional: Reports as per HPI and Reports no additional constitutional complaints Eyes: Eyes: Reports as per HPI and Reports no additional eye complaints ENT: Reports system reviewed and no additional complaints, except as documented and Reports as per HPI Cardiovascular: Cardiovascular: Reports as per HPI and Reports no additional cardiovascular complaints Respiratory: Respiratory: Reports as per HPI and Reports no additional respiratory complaints Gastrointestinal: Gastrointestinal: Reports as per HPI and Reports no additional gastrointestinal complaints Genitourinary: Genitourinary: Reports no additional male genitourinary complaints and Reports as per HPI Musculoskeletal: Musculoskeletal: Reports no additional musculoskeletal complaints and Reports as per HPI Integumentary/Breasts: Skin/Breast: Reports system reviewed and no additional complaints, except as docu and Reports as per HPI Neurologic: Reports system reviewed and no additional complaints, except as documented and Reports as per HPI Psychiatric: Psychiatric: Reports no additional psychiatric complaints and Reports as per HPI [facility] Past Medical History Medical History (Updated 11/13/23 @ 12:18 by Di Vasquez APRN) Kidney stone Torsion, testicular Surgical History Surgical History (Updated 11/13/23 @ 12:18 by Di Vasquez APRN) H/O hernia repair History of intestinal surgery Family History Family History (Updated 11/13/23 @ 12:19 by Di Vasquez APRN) Mother , of Liver failure Liver failure Father , work accident No problems noted. Social History Social History (Updated 11/13/23 @ 12:20 by Di Vasquez APRN) Social History: Lives with Smoking status: Current every day smoker Alcohol intake: current Alcohol use details: Drinks beer Substance use: never Substance use type: does not use Do You Feel Safe in your Home?: Yes Lack of Transportation: No Lack of Food: Never True Current Housing: I Have Housing Concerned About Future Housing: No Difficulty Paying Gas/Electric Bills: No Difficulty Paying for Meds: No Currently Unemployed: No Education: Trade/Vocational Certificate Difficulty w/ Childcare or Family Care: No Spiritual care concerns: No Meds Home Medications and Allergies Home Medications Medication Instructions Recorded Confirmed Type No Home Medications 07/10/23 11/13/23 History Allergies Allergy/AdvReac Type Severity Reaction Status Date / Time propoxyphene AdvReac Severe Nausea and Verified 11/13/23 07:33 [From Darvocet-N] Vomiting levofloxacin AdvReac Mild Nausea and Verified 11/13/23 07:33 Vomiting meperidine AdvReac Mild Nausea and Verified 11/13/23 07:33 Vomiting Vital Signs Vital Signs - 24 hr 11/13/23 01:28 11/13/23 01:38 11/13/23 01:35 Temperature 98.2 F Pulse Rate 62 71 66 Respiratory Rate 16 19 20 Blood Pressure 157/88 H 145/89 H Pulse Oximetry 99 98 100 Oxygen Delivery Room Air Oxygen Flow Rate 11/13/23 01:45 11/13/23 02:00 11/13/23 02:03 Temperature Pulse Rate 67 59 L 58 L Respiratory Rate 24 H 18 18 Blood Pressure 139/85 Pulse Oximetry 95 100 100 Oxygen Delivery Oxygen Flow Rate 11/13/23 02:15 11/13/23 02:43 11/13/23 02:45 Temperature Pulse Rate 64 66 67 Respiratory Rate 22 H 22 H 16 Blood Pressure Pulse Oximetry 100 91 Oxygen Delivery Oxygen Flow Rate 11/13/23 03:00 11/13/23 03:02 11/13/23 03:15 Temperature Pulse Rate 77 70 76 Respiratory Rate 22 H 24 H 15 Blood Pressure 129/107 H Pulse Oximetry 100 98 90 Oxygen Delivery Oxygen Flow Rate 11/13/23 03:31 11/13/23 03:45 11/13/23 04:00 Temperature Pulse Rate 64 68 79 Respiratory Rate 13 17 19 Blood Pressure 146/80 H Pulse Oximetry 96 Oxygen Delivery Oxygen Flow Rate 11/13/23 04:01 11/13/23 04:15 11/13/23 04:30 Temperature Pulse Rate 75 83 79 Respiratory Rate 18 25 H 17 Blood Pressure 136/76 Pulse Oximetry 94 Oxygen Delivery Oxygen Flow Rate 11/13/23 04:45 11/13/23 05:16 11/13/23 05:29 Temperature 101.1 F H Pulse Rate 82 103 H 102 H Respiratory Rate 20 27 H 27 H Blood Pressure 168/98 H Pulse Oximetry 92 Oxygen Delivery Oxygen Flow Rate 11/13/23 05:32 11/13/23 07:08 11/13/23 07:36 Temperature 101.7 F H 100.5 F H Pulse Rate 102 H 106 H 98 Respiratory Rate 18 18 19 Blood Pressure 168/82 H 130/71 98/56 L Pulse Oximetry 92 94 97 Oxygen Delivery Room Air Simple Face Mask Oxygen Flow Rate 8 11/13/23 07:50 Temperature Pulse Rate 116 H Respiratory Rate 20 Blood Pressure 109/72 Pulse Oximetry 98 Oxygen Delivery Room Air Oxygen Flow Rate Exam Narrative: General: In no acute distress, well nourished Head: atraumatic, no encephalopathy Eyes: EOMI, PERRLA, sclera clear ENT: moist mucous membranes, nasal passages clear Neck: supple, no JVD, no adenopathy, trachea midline Cardiac: Normal S1 and S2. RRR, No murmur, gallops or friction rubs, peripheral pulses intact. Respiratory: Lungs clear to auscultation, no adventitious lung sounds, currently on room air Gastrointestinal: soft, non-distended, non-tender, normoactive bowel sounds. : pain with urination, voiding in urinal, dark frederic urine noted Extremities: moves all extremities well, no edema, good ROM, strength 5/5 Skin: clean, dry, intact. No wounds or lesions. Neuro: Alert and oriented x4, cranial nerves intact, no neuro deficits. Psych: normal mood, normal affect, interactive H&P: Results Labs Labs: Short CBC 11/13/23 Range/Units 01:36 WBC 15.5 H (4.5-10.0) K/mm3 Hgb 14.8 (14.0-18.0) g/dL Hct 43.9 (42.0-52.0) % Plt Count 215 (150-375) k/mm3 BMP 11/13/23 01:36 Sodium 137 Potassium 3.8 Chloride 102 Carbon Dioxide 25 BUN 21 H Creatinine 0.90 Glucose 122 H Calcium 9.1 Liver Function 11/13/23 Range/Units 01:36 Total Bilirubin 1.1 (0.2-1.3) mg/dL AST 29 (17-59) U/L ALT 30 (6-50) U/L Alkaline Phosphatase 69 (38-126) U/L Albumin 4.2 (3.5-5.1) g/dL Urine 11/13/23 Range/Units 03:10 Urine Color Yellow (Yellow) Urine Appearance Turbid H (Clear) Urine pH 7.5 (5.0-9.0) Ur Specific [place] 1.015 (1.001-1.035) Urine Protein 1+ H (Negative) mg/dL Urine Glucose (UA) Negative (Negative) mg/dL Imaging Abdomen/ Pelvis Ct: Radiologist's impression: EXAMINATION: CT abdomen pelvis w con DATE: 11/13/2023 02:47 INDICATION: Right lower quadrant abdominal pain TECHNIQUE: Computed tomography (CT) of the abdomen and pelvis was performed without intravenous contrast. Automated exposure control and iterative reconstruction technique were employed. The dose-length product was 607.49 mGy- cm. COMPARISON: None FINDINGS: Mild dependent atelectasis in the bilateral lower lobes. Heart size is normal. No pericardial or pleural effusion. There is refluxed fluid extending through the patent gastroesophageal junction. Visualized distal esophagus. Focal hepatic steatosis at the ligamentum teres. Gallbladder, spleen, pancreas, bilateral adrenal glands are normal. 8 mm left renal cyst. Nonobstructing 17 x 7 x 8 mm stone at the right ureteropelvic junction with right-sided hydronephrosis, delayed nephrogram kidney and mild perinephric stranding. Couple diverticula at the junction of the descending and sigmoid colon without adjacent comparison to suggest diverticular colitis. Small bowel and appendix are normal. Small fat- containing umbilical hernia. Bladder is normal. Prostatomegaly. No free intraperitoneal gas or fluid. No pathologically enlarged abdominal or pelvic lymphadenopathy. Mild lumbar and lower thoracic spondylosis. IMPRESSION: 1. Large obstructing stone at the right ureteropelvic junction with mild right hydronephrosis and perinephric stranding. Correlate with urinalysis to exclude associated urinary tract infection. Reviewed, dictated and finalized at location A. Assessment and Plan Assessment and plan (1) Sepsis: Code(s): A41.9 - Sepsis, unspecified organism Status: Acute Assessment and Plan: 11/13/23: * Patient meeting sepsis criteria with temp of 101.1?, heart rate 103, respiratory rate 27, initial white blood count 15.5 and likely source of infection pyelonephritis/UTI * CT of the abdomen pelvis shown obstructing stone in the right ureter with pyelonephrosis * Urine and blood cultures were obtained and are pending * Patient started on Rocephin (2) Right ureteral calculus: Code(s): N20.1 - Calculus of ureter Status: Acute Assessment and Plan: 11/13/23: * CT of the abdomen pelvis showing obstructing stone * Urology consulted * Patient was taken to the OR today for a cystoscopy with right ureter stent placement * Reporting pain with urination, was started on Pyridium and currently on oxybutynin * Continue pain control * Continue IVF for now (3) Pyelonephritis: Code(s): N12 - Tubulo-interstitial nephritis, not specified as acute or chronic Status: Acute Assessment and Plan: 11/13/23: * CT of the abdomen and pelvis showing pyelonephritis with obstructing stone * See above plan of care Quality VTE Prophylaxis VTE prophylaxis: mechanical ordered Hospitalist [facility] Advance Care Plan I have confirmed that the patient's Advanced Care Plan is present, code status is documented, or surrogate decision maker is listed in patient medical record.: Yes Medication Reconciliation I have utilized all available resources to obtain, update and review the patients current medications (includes all prescriptions, OTC, herbals, cannabis, and nutritional supplements).: Yes
[2023-11-13] MEDS: fentaNYL CITRATE INJ (*CRX) 100 MCG/2 ML VIAL 25 MCG IV PUSH ×4 (08:03→08:34)
[2023-11-13] MEDS: HYDROmorphone HCL INJ (*CRX) 1 MG/ML SYR 0.25 MG IV PUSH (08:45)
[2023-11-13] MEDS: ACETAMINOPHEN 500 MG TABLET 1000 MG PO (08:48)
--- NOTE | 2023-11-13 09:22 | ADMGEN ---
This patient, Gatito Melo, was admitted to 3 [facility] Surg Room 327-01. Patient/family oriented to hospital policies and general routines including ID bracelet, bed and alarms, visiting hours, pain management, procedures, bathroom and other care routines, personal items, smoking policy, room service/diet, and visiting hours. Information on how to activate the Rapid Response Team has been discussed. Patient/Family are encouraged to report perceived risks to care and to ask questions if they do not understand what they are told or what they should do.
[2023-11-13] MEDS: SODIUM CHLORIDE 0.9% IV 1,000 ML 125 ML IV CONT (09:57)
[2023-11-13] MEDS: oxyBUTYnin CHLORIDE 5 MG TABLET PO ×2 (09:58→20:01)
[2023-11-13] MEDS: HYDROcodone/acetaminophen (*CRX) 5-325 MG TABLET 1 TAB PO ×2 (09:58→20:01)
[2023-11-13] MEDS: ceFAZolin 1 GM/NS 50 ML 1 GM/50 ML BAG IVPB ×2 (12:09→20:00)
[2023-11-13] MEDS: MORPHINE SULFATE (*CRX) 2 MG/ML INJ 1 MG IV PUSH ×2 (13:07→17:42)
[2023-11-13] MEDS: HYDROcodone/acetaminophen (*CRX) 5-325 MG TABLET 2 TAB PO ×2 (16:10→23:13)
[2023-11-13] MEDS: PHENAZOPYRIDINE HCL 100 MG TABLET 200 MG PO (16:10)
[2023-11-13] MEDS: ACETAMINOPHEN 325 MG TABLET 650 MG PO (20:00)
[2023-11-13] MEDS: MORPHINE SULFATE (*CRX) 2 MG/ML INJ IV PUSH (20:44)
[2023-11-14] VITALS (14 sets, daily range): BP systolic 100–125; BP diastolic 58–75; PULSE 59–95; RESP 16–20; TEMP 36.6–39.5; O2SAT 91–96
[2023-11-14] MEDS: MORPHINE SULFATE (*CRX) 2 MG/ML INJ 1 MG IV PUSH ×2 (02:04→23:50)
[2023-11-14] MEDS: ACETAMINOPHEN 325 MG TABLET 650 MG PO ×2 (03:52→10:24)
[2023-11-14] MEDS: ceFAZolin 1 GM/NS 50 ML 1 GM/50 ML BAG IVPB (04:02)
[2023-11-14] MEDS: MORPHINE SULFATE (*CRX) 2 MG/ML INJ IV PUSH (04:02)
[2023-11-14 06:21] LABS: Basophils Percent Auto 0.3 % (0.2-1.2); Eosinophils Percent Auto 0.3 % (0-4.4); Hematocrit 37.5 % (42.0-52.0); Hemoglobin 12.3 g/dL (14.0-18.0); Immature Granulocyte Absolute 0.05 K/mm3 (0.00-0.031); Immature Granulocyte Percent A 0.4 % (0-0.5); Immature Platelet Fraction Pct 5.6 % (0.9-11.2); Lymphocytes Absolute Auto 0.54 K/mm3 (0.9-3.2); Lymphocytes Percent Auto 4.8 % (18.3-44.2); Mean Corpuscular HGB Conc 32.8 g/dl (32-36); Mean Corpuscular Volume 94.5 fl (80-100); Mean Platelet Volume 11.1 fl (7.4-10.4); Monocytes Absolute Auto 0.7 K/mm3 (0.1-0.6); Monocytes Percent Auto 6.3 % (2.6-8.5); Neutrophils Percent Auto 87.9 % (45.5-73.1); Platelet Count Result 126 k/mm3 (150-375); Red Blood Count 3.97 M/mm3 (4.6-6.20); White Blood Count 11.3 K/mm3 (4.5-10.0)
[2023-11-14] MEDS: oxyBUTYnin CHLORIDE 5 MG TABLET PO ×3 (06:23→23:50)
[2023-11-14] MEDS: HYDROcodone/acetaminophen (*CRX) 5-325 MG TABLET 2 TAB PO ×2 (06:23→20:44)
[2023-11-14 06:36] LABS: Alanine Aminotransferase 63 U/L (6-50); Alkaline Phosphatase 69 U/L (38-126); Anion Gap 7 mmol/L (4-12); Aspartate Amino Transferase 67 U/L (17-59); Bilirubin,Total 0.4 mg/dL (0.2-1.3); Blood Urea Nitrogen 13 mg/dL (9-20); Calcium 7.7 mg/dL (8.4-10.2); Carbon Dioxide 25 mmol/L (22-30); Chloride 100 mmol/L (98-107); Estimated CRCL calculation 98 ml/min; Estimated Glomerular Filt Rate > 60; Glucose 139 mg/dL (65-110); Potassium 2.8 mmol/L (3.4-5.0); Sodium 132 mmol/L (137-145)
--- NOTE | 2023-11-14 08:16 | PC.NURSE ---
Patient off of unit to XRAY
[2023-11-14] MEDS: POTASSIUM CHLORIDE 20 MEQ PACKET (FOR LIQUID) 40 MEQ PO ×2 (08:35→10:24)
[2023-11-14] MEDS: PHENAZOPYRIDINE HCL 100 MG TABLET 200 MG PO ×3 (08:35→17:25)
[2023-11-14] MEDS: cefTRIAXone 2 GM/NS 100 ML 2 GM/100 ML BAG IVPB (08:35)
[2023-11-14 08:37] LABS: Magnesium 1.3 mg/dL (1.6-2.3)
--- NOTE | 2023-11-14 09:39 | P.PNUR_ITS ---
Progress Note: A&P Assessment and Plan (1) Right ureteral calculus: Code(s): N20.1 - Calculus of ureter Status: Acute Assessment and Plan: Underwent cystoscopy with right ureteral stent placement on 11/13/2023. Will need definitive stone management at a later date following treatment of infection. KUB completed this morning with no visible stone. Continue oxybutynin as needed for bladder spasms (2) Sepsis: Code(s): A41.9 - Sepsis, unspecified organism Status: Acute Assessment and Plan: Secondary to acute UTI/bacteremia/stone. Urine culture pending at this time. Preliminary blood culture with growth of Gram-negative bacilli. Continue empiric antibiotics while awaiting culture results. Febrile this morning up to 102.8. WBC minimally elevated, 11.3. Monitor closely Subjective Subjective Date/Time Seen: 11/14/23 09:39 Interval history: Feeling poorly today. Complains of severe urethral burning and discomfort that is not been improved with analgesics. Complains of fever and chills. Denies nausea or vomiting. Denies abdominal pain or flank pain. Complains of dysuria but no hematuria. Review of Systems Review of Systems: All systems reviewed & are unremarkable except as noted in HPI and below Exam Narrative: General: Awake, alert, comfortable, no acute distress HEENT: Normocephalic, atraumatic, sclerae anicteric Respiratory: Normal respiratory effort, no accessory muscle use Abdomen: Nondistended, soft, nontender Skin: Normal coloration, warm and dry Neurologic: No focal neuro deficits noted Psychiatric: Appropriate mood and affect, judgment and insight intact Objective Data Vital Signs Vital Signs: Vital Signs - 24 hr 11/13/23 09:40 11/13/23 10:10 11/13/23 11:10 Temperature 97.2 F L 97.1 F L 97.0 F L Pulse Rate 86 84 79 Respiratory Rate 18 14 18 Blood Pressure 104/61 101/65 109/57 L Pulse Oximetry 95 95 96 Oxygen Delivery 11/13/23 13:00 11/13/23 16:00 11/13/23 22:00 Temperature 98.2 F 97.7 F 98.6 F Pulse Rate 77 75 Respiratory Rate 16 16 Blood Pressure 99/60 L 127/84 Pulse Oximetry 98 97 Oxygen Delivery 11/13/23 23:08 11/14/23 03:16 11/13/23 20:00 Temperature 98.6 F 102.8 F H Pulse Rate Respiratory Rate Blood Pressure Pulse Oximetry Oxygen Delivery Room Air 11/14/23 06:00 11/14/23 06:23 Temperature 102.0 F H 100.2 F H Pulse Rate 95 Respiratory Rate 20 Blood Pressure 125/75 Pulse Oximetry 91 Oxygen Delivery Intake/Output Intake/Output: Intake & Output 11/11/23 11/12/23 11/13/23 11/14/23 23:59 23:59 23:59 23:59 Intake Total 5980 1840 Output Total 875 Balance 5105 1840 Meds/Results Medications: Active Medications Generic Name Dose Route Start Last Admin Trade Name Freq PRN Reason Stop Dose Admin Acetaminophen 650 mg 11/13/23 12:08 11/14/23 03:52 Acetaminophen 325 Mg Tablet PO 650 mg Q4H PRN Administration Mild Pain (1-3) or Fever Hydrocodone Bitart/Acetaminophen 1 tab 11/13/23 09:04 11/13/23 20:01 Hydrocodone/Acetaminophen (*Crx) 5-325 Mg Tablet PO 1 tab Q4H PRN Administration Pain Rated 4-6 Hydrocodone Bitart/Acetaminophen 2 tab 11/13/23 09:04 11/14/23 06:23 Hydrocodone/Acetaminophen (*Crx) 5-325 Mg Tablet PO 2 tab Q6H PRN Administration Pain Rated 7-10 Ceftriaxone Sodium 2 gm in 100 mls @ 200 mls/hr 11/14/23 09:00 11/14/23 08:35 Rocephin 2 Gm/Ns 100 Ml IVPB 200 mls/hr Q24H NAKUL Administration Morphine Sulfate 1 mg 11/13/23 09:04 11/14/23 02:04 Morphine Sulfate (*Crx) 2 Mg/Ml Inj IV PUSH 1 mg Q4H PRN Administration Pain Rated 6 or Greater Morphine Sulfate 2 mg 11/13/23 12:08 11/14/23 04:02 Morphine Sulfate (*Crx) 2 Mg/Ml Inj IV PUSH 2 mg Q4H PRN Administration Pain Rated 7-10 Oxybutynin Chloride 5 mg 11/13/23 09:04 11/14/23 06:23 Oxybutynin Chloride 5 Mg Tablet PO 5 mg TID PRN Administration Spasms Phenazopyridine HCl 200 mg 11/13/23 17:00 11/14/23 08:35 Phenazopyridine Hcl 100 Mg Tablet PO 200 mg TIDWM NAKUL Administration Potassium Chloride 40 meq 11/14/23 10:00 Potassium Chloride 20 Meq Packet (For Liquid) PO 11/14/23 10:01 ONCE ONE Radiology Results: ITS Impressions Abdomen/Pelvis CT 11/13/23 08:10 IMPRESSION: 1. Large obstructing stone at the right ureteropelvic junction with mild right hydronephrosis and perinephric stranding. Correlate with urinalysis to exclude associated urinary tract infection. Retrograde Pyelogram 11/13/23 09:11 IMPRESSION: 1. Right internal ureteral stent placement. Please refer to real-time procedural findings for details. Abdomen X-Ray 11/14/23 08:28 IMPRESSION: 1: No acute abdominal abnormality identified. Labs Labs: Laboratory Results - last 24 hr 11/14/23 11/14/23 06:06 06:10 WBC 11.3 H RBC 3.97 L Hgb 12.3 L Hct 37.5 L MCV 94.5 MCH 31.0 MCHC 32.8 RDW 14.0 Plt Count 126 L MPV 11.1 H Immature Gran % (Auto) 0.4 Neut % (Auto) 87.9 H Lymph % (Auto) 4.8 L [place] % (Auto) 6.3 Eos % (Auto) 0.3 Baso % (Auto) 0.3 Lymph # (Auto) 0.54 L [place] # (Auto) 0.7 H Eos # (Auto) 0.0 Baso # (Auto) 0.0 Abs Immat Gran (auto) 0.05 H Absolute Neuts (auto) 10.0 H Absolute Nucleated RBC 0.000 Nucleated RBC % 0.0 % Immature Plt Fraction 5.6 Sodium 132 L Potassium 2.8 L* Chloride 100 Carbon Dioxide 25 Anion Gap 7 BUN 13 D Creatinine 0.90 Estim Creat Clear Calc 98 Estimated GFR > 60 Glucose 139 H Calcium 7.7 L Magnesium 1.3 L Total Bilirubin 0.4 AST 67 H ALT 63 H Alkaline Phosphatase 69 Total Protein 6.0 L Albumin 3.0 L
[2023-11-14] MEDS: HYDROcodone/acetaminophen (*CRX) 5-325 MG TABLET 1 TAB PO ×2 (12:51→17:26)
--- NOTE | 2023-11-14 13:12 | PC.NURSE ---
Patient off of unit to Ultrasound
--- NOTE | 2023-11-14 13:58 | P.PNIM_ITS ---
Progress Note: A&P Assessment and Plan (1) Sepsis: Code(s): A41.9 - Sepsis, unspecified organism Status: Acute Assessment and Plan: 11/13/23: * Patient meeting sepsis criteria with temp of 101.1?, heart rate 103, respiratory rate 27, initial white blood count 15.5 and likely source of infection pyelonephritis/UTI * CT of the abdomen pelvis shown obstructing stone in the right ureter with pyelonephrosis * Urine and blood cultures were obtained and are pending * Patient started on Rocephin 11/14/23: * Of 2 vials blood showing Gram-negative bacilli isolated on preliminary read * Urine culture still pending * Continue with Rocephin * Still febrile today with a T-max of 103? * White blood cell count 11.3 (2) Right ureteral calculus: Code(s): N20.1 - Calculus of ureter Status: Acute Assessment and Plan: 11/13/23: * CT of the abdomen pelvis showing obstructing stone * Urology consulted * Patient was taken to the OR today for a cystoscopy with right ureter stent placement * Reporting pain with urination, was started on Pyridium and currently on oxybutynin * Continue pain control * Continue IVF for now 11/14/23: * Will give 800 mg ibuprofen IV now for increased pain/inflammation due to movement of the stone * Urology following * KUB today did not show a stone which is likely why he is having increased pain today (3) Pyelonephritis: Code(s): N12 - Tubulo-interstitial nephritis, not specified as acute or chronic Status: Acute Assessment and Plan: 11/13/23: * CT of the abdomen and pelvis showing pyelonephritis with obstructing stone * See above plan of care 11/14/23: * See above plan of care (4) Alcohol withdrawal: Code(s): F10.939 - Alcohol use, unspecified with withdrawal, unspecified Status: Acute Assessment and Plan: 11/14/23: * Patient high heart rate and tremors according to nursing however this can be explained with his high temperatures and rigors * Patient drinks at least 8 beers a day * CIWA protocol ordered as precautionary Time Spent With Patient Time with patient: 25 - 35 minutes Subjective Date/time seen: 11/14/23 13:58 Interval history: Interval history: 11/13/23: This is a 43-year-old male with a significant past medical history of kidney stones presents to the hospital with flank pain. Patient states that he started noticing symptoms yesterday with right sided flank pain. He states he took his trazodone and slept for about 3 hours and woke up with worsening flank pain and burning with urination. He states that where he works it is hot and he usually drinks about 2 gallons of water a day. He states he has had kidney stones in the past but he can't remember if they told him what type of stones he had. Last time he was worked up for kidney stones, he was seen at a hospital in [place], [place]. He denies any family history of kidney stones. He also denies drinking soda or energy drinks. Patient denies any nausea, vomiting, diarrhea, chest pain, or shortness of breath. Patient endorses fever with chills, flank pain, and burning pain with urination. Work up in the hospital included an abdomen pelvis CT showing large right ureteral obstructing stone measuring 17 x 7x 8 mm stone with right sided hydronephrosis. Initial labs showed a white blood cell count of 15.5, otherwise unremarkable. UA was obtained and showed 1+ urine protein, 2+ urine ketones, 2+ urine blood, positive nitrate, 1+ leukocyte, greater than 100 urine WBC, 11-20 urine RBC, 2+ bacteria. Blood and urine cultures are obtained and are pending. Patient was initially afebrile while in the ED how ever later went into septic shock with temp of 101.1?, rigors, heart rate 103, respiratory rate 27. Patient was given IV fluids, pain medication, and started on Rocephin while in the ED. Urology was also consulted and took patient to the OR for cystoscopy with stent placement to the right ureter today. 11/14/23: Patient reporting fever, chills, and numbness in right hand. Patient had IV in right AC and started complaining of pain last night. Nursing took IV out and placed new on the other arm but he his still complaining of numbness and tingling in his right thumb and first finger. He also is reporting urethral pain and reports throbbing pain in his penis as if he is trying to pass the stone. KUB done today did not show any stone present so this may be possible that it moved down. T-max today 103. Review of Systems Review of Systems: All systems reviewed & are unremarkable except as noted in HPI and below Constitutional: Constitutional: Reports as per HPI and Reports no additional constitutional complaints Eyes: Eyes: Reports as per HPI and Reports no additional eye complaints ENT: Reports system reviewed and no additional complaints, except as documented and Reports as per HPI Cardiovascular: Cardiovascular: Reports as per HPI and Reports no additional cardiovascular complaints Respiratory: Respiratory: Reports as per HPI and Reports no additional respiratory complaints Gastrointestinal: Gastrointestinal: Reports as per HPI and Reports no additional gastrointestinal complaints Genitourinary: Genitourinary: Reports no additional male genitourinary complaints and Reports as per HPI Musculoskeletal: Musculoskeletal: Reports no additional musculoskeletal complaints and Reports as per HPI Integumentary/Breasts: Skin/Breast: Reports system reviewed and no additional complaints, except as docu and Reports as per HPI Neurologic: Reports system reviewed and no additional complaints, except as documented and Reports as per HPI Psychiatric: Psychiatric: Reports no additional psychiatric complaints and Reports as per HPI Exam Narrative: General: In no acute distress, well nourished Cardiac: Normal S1 and S2. RRR, No murmur, gallops or friction rubs, peripheral pulses intact. Respiratory: Lungs clear to auscultation, no adventitious lung sounds, currently on room air Gastrointestinal: soft, non-distended, non-tender, normoactive bowel sounds. : pain with urination, voiding in urinal, clear orange urine noted. Neuro: Alert and oriented x4 Objective Data Vital Signs Vital Signs: Vital Signs - 24 hr 11/13/23 16:00 11/13/23 22:00 11/13/23 23:08 Temperature 97.7 F 98.6 F 98.6 F Pulse Rate 77 75 Respiratory Rate 16 16 Blood Pressure 99/60 L 127/84 Pulse Oximetry 98 97 Oxygen Delivery 11/14/23 03:16 11/13/23 20:00 11/14/23 06:00 Temperature 102.8 F H 102.0 F H Pulse Rate 95 Respiratory Rate 20 Blood Pressure 125/75 Pulse Oximetry 91 Oxygen Delivery Room Air 11/14/23 06:23 11/14/23 08:30 11/14/23 10:17 Temperature 100.2 F H 98.8 F 99.3 F Pulse Rate Respiratory Rate Blood Pressure Pulse Oximetry 96 Oxygen Delivery 11/14/23 10:24 11/14/23 10:40 11/14/23 08:35 Temperature 99.3 F 99.3 F Pulse Rate 85 Respiratory Rate Blood Pressure Pulse Oximetry Oxygen Delivery Room Air 11/14/23 11:51 11/14/23 11:24 11/14/23 11:00 Temperature 102.8 F H 103 F H 103.1 F H Pulse Rate Respiratory Rate Blood Pressure Pulse Oximetry Oxygen Delivery 11/14/23 12:45 Temperature 100.7 F H Pulse Rate Respiratory Rate Blood Pressure Pulse Oximetry Oxygen Delivery Intake/Output Intake/Output: Intake & Output 11/11/23 11/12/23 11/13/23 11/14/23 23:59 23:59 23:59 23:59 Intake Total 5980 2180 Output Total 875 Balance 5105 2180 Meds/Results Medications: Active Medications Generic Name Dose Route Start Last Admin Trade Name Freq PRN Reason Stop Dose Admin Acetaminophen 650 mg 11/13/23 12:08 11/14/23 10:24 Acetaminophen 325 Mg Tablet PO 650 mg Q4H PRN Administration Mild Pain (1-3) or Fever Hydrocodone Bitart/Acetaminophen 1 tab 11/13/23 09:04 11/14/23 12:51 Hydrocodone/Acetaminophen (*Crx) 5-325 Mg Tablet PO 1 tab Q4H PRN Administration Pain Rated 4-6 Hydrocodone Bitart/Acetaminophen 2 tab 11/13/23 09:04 11/14/23 06:23 Hydrocodone/Acetaminophen (*Crx) 5-325 Mg Tablet PO 2 tab Q6H PRN Administration Pain Rated 7-10 Chlordiazepoxide HCl 25 mg 11/14/23 18:00 Chlordiazepoxide (*Crx) 25 Mg Capsule PO Q6HR NAKUL Ceftriaxone Sodium 2 gm in 100 mls @ 200 mls/hr 11/14/23 09:00 11/14/23 09:05 Rocephin 2 Gm/Ns 100 Ml IVPB Infused Q24H NAKUL Infusion Lorazepam 2 mg 11/14/23 13:17 Lorazepam Inj (*Crx) 2 Mg/Ml Vial IV PUSH Q2H PRN CIWA > 15 Morphine Sulfate 1 mg 11/13/23 09:04 11/14/23 02:04 Morphine Sulfate (*Crx) 2 Mg/Ml Inj IV PUSH 1 mg Q4H PRN Administration Pain Rated 6 or Greater Morphine Sulfate 2 mg 11/13/23 12:08 11/14/23 04:02 Morphine Sulfate (*Crx) 2 Mg/Ml Inj IV PUSH 2 mg Q4H PRN Administration Pain Rated 7-10 Ondansetron HCl 4 mg 11/14/23 13:17 Ondansetron Inj 4 Mg/2 Ml Vial IV PUSH Q6H PRN Nausea And Vomiting Oxybutynin Chloride 5 mg 11/13/23 09:04 11/14/23 10:24 Oxybutynin Chloride 5 Mg Tablet PO 5 mg TID PRN Administration Spasms Phenazopyridine HCl 200 mg 11/13/23 17:00 11/14/23 12:51 Phenazopyridine Hcl 100 Mg Tablet PO 200 mg TIDWM NAKUL Administration Radiology Results: ITS Impressions Abdomen/Pelvis CT 11/13/23 08:10 IMPRESSION: 1. Large obstructing stone at the right ureteropelvic junction with mild right hydronephrosis and perinephric stranding. Correlate with urinalysis to exclude associated urinary tract infection. Retrograde Pyelogram 11/13/23 09:11 IMPRESSION: 1. Right internal ureteral stent placement. Please refer to real-time procedural findings for details. Abdomen X-Ray 11/14/23 08:28 IMPRESSION: 1: No acute abdominal abnormality identified. Labs Labs: Laboratory Results - last 24 hr 11/14/23 11/14/23 06:06 06:10 WBC 11.3 H RBC 3.97 L Hgb 12.3 L Hct 37.5 L MCV 94.5 MCH 31.0 MCHC 32.8 RDW 14.0 Plt Count 126 L MPV 11.1 H Immature Gran % (Auto) 0.4 Neut % (Auto) 87.9 H Lymph % (Auto) 4.8 L [place] % (Auto) 6.3 Eos % (Auto) 0.3 Baso % (Auto) 0.3 Lymph # (Auto) 0.54 L [place] # (Auto) 0.7 H Eos # (Auto) 0.0 Baso # (Auto) 0.0 Abs Immat Gran (auto) 0.05 H Absolute Neuts (auto) 10.0 H Absolute Nucleated RBC 0.000 Nucleated RBC % 0.0 % Immature Plt Fraction 5.6 Sodium 132 L Potassium 2.8 L* Chloride 100 Carbon Dioxide 25 Anion Gap 7 BUN 13 D Creatinine 0.90 Estim Creat Clear Calc 98 Estimated GFR > 60 Glucose 139 H Calcium 7.7 L Magnesium 1.3 L Total Bilirubin 0.4 AST 67 H ALT 63 H Alkaline Phosphatase 69 Total Protein 6.0 L Albumin 3.0 L Quality VTE Prophylaxis VTE prophylaxis: mechanical ordered Hospitalist MIPS Advance Care Plan I have confirmed that the patient's Advanced Care Plan is present, code status is documented, or surrogate decision maker is listed in patient medical record.: Yes Medication Reconciliation I have utilized all available resources to obtain, update and review the patients current medications (includes all prescriptions, OTC, herbals, cannabis, and nutritional supplements).: Yes
[2023-11-14] MEDS: IBUPROFEN IV 800 MG/200 ML 800 MG/200 ML BAG 400 MG IVPB (14:44)
[2023-11-14 16:11] LABS: Potassium 3.5 mmol/L (3.4-5.0)
[2023-11-14] MEDS: MAGNESIUM SULFATE 3GM/D5W100ML 3 GM/100 ML BAG IVPB (17:24)
[2023-11-14 18:09] LABS: Glucose Point of Care 163 mg/dl (65-105)
[2023-11-14] MEDS: DOCUSATE SODIUM 100 MG CAPSULE PO (20:44)
[2023-11-14] MEDS: chlordiazePOXIDE (*CRX) 25 MG CAPSULE PO (23:50)
[2023-11-15] VITALS (9 sets, daily range): BP systolic 121–149; BP diastolic 71–89; PULSE 57–98; RESP 16–18; TEMP 36.7–38.4; O2SAT 93–98
[2023-11-15] MEDS: HYDROcodone/acetaminophen (*CRX) 5-325 MG TABLET 1 TAB PO (04:54)
[2023-11-15] MEDS: DOCUSATE SODIUM 100 MG CAPSULE PO ×2 (04:54→20:00)
[2023-11-15 05:24] LABS: Glucose Point of Care 117 mg/dl (65-105)
--- NOTE | 2023-11-15 05:27 | PC.NURSE ---
Pt has called this nurse into his room multiple times this shift, to report he is unable to have a bowel movement. Pt has been given two colace this shift, and reports he had a small bowel movement yesterday. Pt is requesting pain medication frequently. Educated pt on how this could be effecting his ability to have a bowel movement. Pt now requesting a laxative. Will follow up with day nurse.
[2023-11-15 06:51] LABS: Basophils Percent Auto 0.3 % (0.2-1.2); Eosinophils Absolute Auto 0.1 K/mm3 (0-0.3); Eosinophils Percent Auto 1.6 % (0-4.4); Hematocrit 38.5 % (42.0-52.0); Hemoglobin 12.9 g/dL (14.0-18.0); Immature Granulocyte Absolute 0.03 K/mm3 (0.00-0.031); Immature Granulocyte Percent A 0.4 % (0-0.5); Immature Platelet Fraction Pct 7.8 % (0.9-11.2); Lymphocytes Absolute Auto 0.43 K/mm3 (0.9-3.2); Lymphocytes Percent Auto 5.8 % (18.3-44.2); Mean Corpuscular HGB Conc 33.5 g/dl (32-36); Mean Corpuscular Hemoglobin 31.5 pg (26-34); Mean Corpuscular Volume 94.1 fl (80-100); Monocytes Absolute Auto 0.6 K/mm3 (0.1-0.6); Monocytes Percent Auto 8.5 % (2.6-8.5); Neutrophils Absolute Auto 6.2 K/mm3 (1.3-6.7); Neutrophils Percent Auto 83.4 % (45.5-73.1); Platelet Count Result 115 k/mm3 (150-375); Red Blood Count 4.09 M/mm3 (4.6-6.20); Red Cell Distribution Width 13.9 % (11.5-14.5); White Blood Count 7.5 K/mm3 (4.5-10.0)
[2023-11-15 07:26] LABS: Alanine Aminotransferase 130 U/L (6-50); Albumin Level 3.1 g/dL (3.5-5.1); Alkaline Phosphatase 125 U/L (38-126); Anion Gap 8 mmol/L (4-12); Aspartate Amino Transferase 111 U/L (17-59); Bilirubin,Total 0.4 mg/dL (0.2-1.3); Blood Urea Nitrogen 16 mg/dL (9-20); Calcium 8.1 mg/dL (8.4-10.2); Carbon Dioxide 25 mmol/L (22-30); Chloride 100 mmol/L (98-107); Estimated CRCL calculation 98 ml/min; Estimated Glomerular Filt Rate > 60; Glucose 114 mg/dL (65-110); Potassium 3.7 mmol/L (3.4-5.0); Sodium 133 mmol/L (137-145)
[2023-11-15] MEDS: cefTRIAXone 2 GM/NS 100 ML 2 GM/100 ML BAG IVPB (08:46)
[2023-11-15] MEDS: oxyBUTYnin CHLORIDE 5 MG TABLET PO (08:46)
[2023-11-15] MEDS: PHENAZOPYRIDINE HCL 100 MG TABLET 200 MG PO ×3 (08:46→17:03)
[2023-11-15] MEDS: HYDROcodone/acetaminophen (*CRX) 5-325 MG TABLET 2 TAB PO ×2 (08:52→18:48)
[2023-11-15] MEDS: BISACODYL 5 MG TABLET EC PO (09:10)
--- NOTE | 2023-11-15 09:38 | WPDUROPN2 ---
Progress Note: A&P Assessment and Plan (1) Right ureteral calculus: Code(s): N20.1 - Calculus of ureter Status: Acute Assessment and Plan: Underwent cystoscopy with right ureteral stent placement on 11/13/2023. Will need definitive stone management at a later date following treatment of infection. KUB completed 11/13 with no visible stone. Continue oxybutynin as needed for bladder spasms (2) Sepsis: Code(s): A41.9 - Sepsis, unspecified organism Status: Acute Assessment and Plan: Secondary to acute UTI/bacteremia/stone. Preliminary urine and blood cultures with Gram-negative bacilli. Continue empiric antibiotics while awaiting culture results. Febrile this morning 101.2. Leukocytosis resolved, WBC 7.5. Monitor closely (3) UTI (urinary tract infection): Code(s): N39.0 - Urinary tract infection, site not specified Status: Acute Assessment and Plan: As above Subjective Subjective Date/Time Seen: 11/15/23 09:38 Interval history: Continues to feel poorly today. Complains of abdominal pain and constipation. Complains of penile irritation and burning. Endorses dysuria. No hematuria. Continues to have fevers. Denies nausea or vomiting. Review of Systems Review of Systems: All systems reviewed & are unremarkable except as noted in HPI and below Exam Narrative: General: Awake, alert, comfortable, no acute distress HEENT: Normocephalic, atraumatic, sclerae anicteric Respiratory: Normal respiratory effort, no accessory muscle use Abdomen: Nondistended, soft, nontender Skin: Normal coloration, warm and dry Neurologic: No focal neuro deficits noted Psychiatric: Appropriate mood and affect, judgment and insight intact Objective Data Vital Signs Vital Signs: Vital Signs - 24 hr 11/14/23 10:17 11/14/23 10:24 11/14/23 10:40 Temperature 99.3 F 99.3 F 99.3 F Pulse Rate 85 Pulse Rate [Right Radial] Respiratory Rate Blood Pressure Pulse Oximetry Oxygen Delivery 11/14/23 11:51 11/14/23 11:24 11/14/23 11:00 Temperature 102.8 F H 103 F H 103.1 F H Pulse Rate Pulse Rate [Right Radial] Respiratory Rate Blood Pressure Pulse Oximetry Oxygen Delivery 11/14/23 12:45 11/14/23 14:00 11/14/23 21:25 Temperature 100.7 F H 98.9 F 98 F Pulse Rate 75 59 L Pulse Rate [Right Radial] Respiratory Rate 17 16 Blood Pressure 100/60 117/58 L Pulse Oximetry 94 94 Oxygen Delivery 11/14/23 20:00 11/14/23 20:00 11/15/23 00:00 Temperature Pulse Rate Pulse Rate [Right Radial] 64 62 Respiratory Rate Blood Pressure Pulse Oximetry Oxygen Delivery Room Air 11/15/23 06:00 11/15/23 07:02 11/15/23 09:10 Temperature 101.2 F H 99.1 F Pulse Rate 57 L Pulse Rate [Right Radial] Respiratory Rate 16 Blood Pressure 149/89 H Pulse Oximetry 94 94 Oxygen Delivery Room Air Intake/Output Intake/Output: Intake & Output 11/12/23 11/13/23 11/14/23 11/15/23 23:59 23:59 23:59 23:59 Intake Total 5980 2670 1425 Output Total 875 900 Balance 5105 1770 1425 Meds/Results Medications: Active Medications Generic Name Dose Route Start Last Admin Trade Name Freq PRN Reason Stop Dose Admin Acetaminophen 650 mg 11/13/23 12:08 11/14/23 10:24 Acetaminophen 325 Mg Tablet PO 650 mg Q4H PRN Administration Mild Pain (1-3) or Fever Hydrocodone Bitart/Acetaminophen 1 tab 11/13/23 09:04 11/15/23 04:54 Hydrocodone/Acetaminophen (*Crx) 5-325 Mg Tablet PO 1 tab Q4H PRN Administration Pain Rated 4-6 Hydrocodone Bitart/Acetaminophen 2 tab 11/13/23 09:04 11/15/23 08:52 Hydrocodone/Acetaminophen (*Crx) 5-325 Mg Tablet PO 2 tab Q6H PRN Administration Pain Rated 7-10 Bisacodyl 5 mg 11/15/23 09:00 11/15/23 09:10 Bisacodyl 5 Mg Tablet Ec PO 5 mg QAM NAKUL Administration Chlordiazepoxide HCl 25 mg 11/14/23 18:00 11/15/23 04:57 Chlordiazepoxide (*Crx) 25 Mg Capsule PO Not Given Q6HR NAKUL Docusate Sodium 100 mg 11/14/23 21:00 11/15/23 04:54 Docusate Sodium 100 Mg Capsule PO 100 mg Q12HR NAKUL Administration Ceftriaxone Sodium 2 gm in 100 mls @ 200 mls/hr 11/14/23 09:00 11/15/23 08:46 Rocephin 2 Gm/Ns 100 Ml IVPB 100 mls/hr Q24H NAKUL Administration Lorazepam 2 mg 11/14/23 13:17 Lorazepam Inj (*Crx) 2 Mg/Ml Vial IV PUSH Q2H PRN CIWA > 15 Morphine Sulfate 1 mg 11/13/23 09:04 11/14/23 23:50 Morphine Sulfate (*Crx) 2 Mg/Ml Inj IV PUSH 1 mg Q4H PRN Administration Pain Rated 6 or Greater Morphine Sulfate 2 mg 11/13/23 12:08 11/14/23 04:02 Morphine Sulfate (*Crx) 2 Mg/Ml Inj IV PUSH 2 mg Q4H PRN Administration Pain Rated 7-10 Ondansetron HCl 4 mg 11/14/23 13:17 Ondansetron Inj 4 Mg/2 Ml Vial IV PUSH Q6H PRN Nausea And Vomiting Oxybutynin Chloride 5 mg 11/13/23 09:04 11/15/23 08:46 Oxybutynin Chloride 5 Mg Tablet PO 5 mg TID PRN Administration Spasms Phenazopyridine HCl 200 mg 11/13/23 17:00 11/15/23 08:46 Phenazopyridine Hcl 100 Mg Tablet PO 200 mg TIDWM NAKUL Administration Radiology Results: ITS Impressions Abdomen/Pelvis CT 11/13/23 08:10 IMPRESSION: 1. Large obstructing stone at the right ureteropelvic junction with mild right hydronephrosis and perinephric stranding. Correlate with urinalysis to exclude associated urinary tract infection. Retrograde Pyelogram 11/13/23 09:11 IMPRESSION: 1. Right internal ureteral stent placement. Please refer to real-time procedural findings for details. Abdomen X-Ray 11/14/23 08:28 IMPRESSION: 1: No acute abdominal abnormality identified. Venous Doppler Study 11/14/23 14:20 IMPRESSION: Thrombosed basilic vein. Otherwise, Negative right upper extremity venous US. No deep vein thrombosis. Labs Labs: Laboratory Results - last 24 hr 11/14/23 11/14/23 11/15/23 15:45 18:06 05:12 WBC RBC Hgb Hct MCV MCH MCHC RDW Plt Count MPV Immature Gran % (Auto) Neut % (Auto) Lymph % (Auto) [place] % (Auto) Eos % (Auto) Baso % (Auto) Lymph # (Auto) [place] # (Auto) Eos # (Auto) Baso # (Auto) Abs Immat Gran (auto) Absolute Neuts (auto) Absolute Nucleated RBC Nucleated RBC % % Immature Plt Fraction Sodium Potassium 3.5 Chloride Carbon Dioxide Anion Gap BUN Creatinine Estim Creat Clear Calc Estimated GFR Glucose POC Capillary Glucose 163 H 117 H Calcium Total Bilirubin AST ALT Alkaline Phosphatase Total Protein Albumin 11/15/23 06:17 WBC 7.5 RBC 4.09 L Hgb 12.9 L Hct 38.5 L MCV 94.1 MCH 31.5 MCHC 33.5 RDW 13.9 Plt Count 115 L MPV 12.0 H Immature Gran % (Auto) 0.4 Neut % (Auto) 83.4 H Lymph % (Auto) 5.8 L [place] % (Auto) 8.5 Eos % (Auto) 1.6 Baso % (Auto) 0.3 Lymph # (Auto) 0.43 L [place] # (Auto) 0.6 Eos # (Auto) 0.1 Baso # (Auto) 0.0 Abs Immat Gran (auto) 0.03 Absolute Neuts (auto) 6.2 Absolute Nucleated RBC 0.000 Nucleated RBC % 0.0 % Immature Plt Fraction 7.8 Sodium 133 L Potassium 3.7 Chloride 100 Carbon Dioxide 25 Anion Gap 8 BUN 16 Creatinine 0.90 Estim Creat Clear Calc 98 Estimated GFR > 60 Glucose 114 H POC Capillary Glucose Calcium 8.1 L Total Bilirubin 0.4 AST 111 H ALT 130 H Alkaline Phosphatase 125 Total Protein 6.0 L Albumin 3.1 L
[2023-11-15] MEDS: MORPHINE SULFATE (*CRX) 2 MG/ML INJ IV PUSH ×2 (10:42→20:01)
[2023-11-15] MEDS: chlordiazePOXIDE (*CRX) 25 MG CAPSULE PO ×3 (12:04→23:49)
[2023-11-15] MEDS: ACETAMINOPHEN 325 MG TABLET 650 MG PO (13:24)
--- NOTE | 2023-11-15 13:42 | PC.NURSE ---
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 Temp 99.5 and patient shaking and c/o chills.
--- NOTE | 2023-11-15 15:54 | P.PNIM_ITS ---
Progress Note: A&P Assessment and Plan (1) Sepsis: Code(s): A41.9 - Sepsis, unspecified organism Status: Acute Assessment and Plan: 11/13/23: * Patient meeting sepsis criteria with temp of 101.1?, heart rate 103, respiratory rate 27, initial white blood count 15.5 and likely source of infection pyelonephritis/UTI * CT of the abdomen pelvis shown obstructing stone in the right ureter with pyelonephrosis * Urine and blood cultures were obtained and are pending * Patient started on Rocephin 11/14/23: * Of 2 vials blood showing Gram-negative bacilli isolated on preliminary read * Urine culture still pending * Continue with Rocephin * Still febrile today with a T-max of 103? * White blood cell count 11.3 11/15/23: * Blood and urine cultures showing Proteus mirabilis * Rocephin discontinued due to increased liver enzymes * Will start Augmentin * White blood cell count 7.5 * T-max 101.2 * New set of blood cultures pending (2) Right ureteral calculus: Code(s): N20.1 - Calculus of ureter Status: Acute Assessment and Plan: 11/13/23: * CT of the abdomen pelvis showing obstructing stone * Urology consulted * Patient was taken to the OR today for a cystoscopy with right ureter stent placement * Reporting pain with urination, was started on Pyridium and currently on oxybutynin * Continue pain control * Continue IVF for now 11/14/23: * Will give 800 mg ibuprofen IV now for increased pain/inflammation due to movement of the stone * Urology following * KUB today did not show a stone which is likely why he is having increased pain today 11/15/23: * Urology following * Patient still having increased pain and fevers again today * Will go ahead and get a CT his chest abdomen pelvis (3) Pyelonephritis: Code(s): N12 - Tubulo-interstitial nephritis, not specified as acute or chronic Status: Acute Assessment and Plan: 11/13/23: * CT of the abdomen and pelvis showing pyelonephritis with obstructing stone * See above plan of care 11/14/23: * See above plan of care (4) Alcohol withdrawal: Code(s): F10.939 - Alcohol use, unspecified with withdrawal, unspecified Status: Acute Assessment and Plan: 11/14/23: * Patient high heart rate and tremors according to nursing however this can be explained with his high temperatures and rigors * Patient drinks at least 8 beers a day * CIWA protocol ordered as precautionary 11/15/23: * No change to current treatment plan (5) Constipation: Code(s): K59.00 - Constipation, unspecified Status: Acute Assessment and Plan: 11/15/23: * Patient requesting stool softener disease feeling constipated * Colace and Dulcolax ordered * Called by nursing states patient has still not had a bowel, patient was ordered 150 ml Mag citrate x1 now Time Spent With Patient Time with patient: Greater than 35 minutes Subjective Date/time seen: 11/15/23 15:54 Interval history: Interval history: 11/13/23: This is a 43-year-old male with a significant past medical history of kidney stones presents to the hospital with flank pain. Patient states that he started noticing symptoms yesterday with right sided flank pain. He states he took his trazodone and slept for about 3 hours and woke up with worsening flank pain and burning with urination. He states that where he works it is hot and he usually drinks about 2 gallons of water a day. He states he has had kidney stones in the past but he can't remember if they told him what type of stones he had. Last time he was worked up for kidney stones, he was seen at a hospital in [place], [place]. He denies any family history of kidney stones. He also denies drinking soda or energy drinks. Patient denies any nausea, vomiting, diarrhea, chest pain, or shortness of breath. Patient endorses fever with chills, flank pain, and burning pain with urination. Work up in the hospital included an abdomen pelvis CT showing large right ureteral obstructing stone measuring 17 x 7x 8 mm stone with right sided hydronephrosis. Initial labs showed a white blood cell count of 15.5, otherwise unremarkable. UA was obtained and showed 1+ urine protein, 2+ urine ketones, 2+ urine blood, positive nitrate, 1+ leukocyte, greater than 100 urine WBC, 11-20 urine RBC, 2+ bacteria. Blood and urine cultures are obtained and are pending. Patient was initially afebrile while in the ED how ever later went into septic shock with temp of 101.1?, rigors, heart rate 103, respiratory rate 27. Patient was given IV fluids, pain medication, and started on Rocephin while in the ED. Urology was also consulted and took patient to the OR for cystoscopy with stent placement to the right ureter today. 11/14/23: Patient reporting fever, chills, and numbness in right hand. Patient had IV in right AC and started complaining of pain last night. Nursing took IV out and placed new on the other arm but he his still complaining of numbness and tingling in his right thumb and first finger. He also is reporting urethral pain and reports throbbing pain in his penis as if he is trying to pass the stone. KUB done today did not show any stone present so this may be possible that it moved down. T-max today 103. 11/15/23: Patient is still febrile today with a T-max of 101.2?. He appears ill and generally uncomfortable. He is still reporting urethral pain that is unrelieved with pain medication. He is also reporting constipation. White blood cell count today is 7.5, liver enzymes increased AST 111, ALT 130. Review of Systems Review of Systems: All systems reviewed & are unremarkable except as noted in HPI and below Constitutional: Constitutional: Reports as per HPI and Reports no additional constitutional complaints Eyes: Eyes: Reports as per HPI and Reports no additional eye complaints ENT: Reports system reviewed and no additional complaints, except as documented and Reports as per HPI Cardiovascular: Cardiovascular: Reports as per HPI and Reports no additional cardiovascular complaints Respiratory: Respiratory: Reports as per HPI and Reports no additional respiratory complaints Gastrointestinal: Gastrointestinal: Reports as per HPI and Reports no additional gastrointestinal complaints Genitourinary: Genitourinary: Reports no additional male genitourinary complaints and Reports as per HPI Musculoskeletal: Musculoskeletal: Reports no additional musculoskeletal complaints and Reports as per HPI Integumentary/Breasts: Skin/Breast: Reports system reviewed and no additional complaints, except as docu and Reports as per HPI Neurologic: Reports system reviewed and no additional complaints, except as documented and Reports as per HPI Psychiatric: Psychiatric: Reports no additional psychiatric complaints and Reports as per HPI Exam Narrative: General: Acutely ill appearing Cardiac: Normal S1 and S2. RRR, No murmur, gallops or friction rubs, peripheral pulses intact. Respiratory: Lungs clear to auscultation, no adventitious lung sounds, currently on room air Gastrointestinal: soft, non-distended, non-tender, normoactive bowel sounds. : pain with urination, voiding in urinal, clear orange urine noted. Neuro: Alert and oriented x4 Objective Data Vital Signs Vital Signs: Vital Signs - 24 hr 11/14/23 21:25 11/14/23 20:00 11/14/23 20:00 Temperature 98 F Pulse Rate 59 L Pulse Rate [Right Radial] 64 Respiratory Rate 16 Blood Pressure 117/58 L Pulse Oximetry 94 Oxygen Delivery Room Air 11/15/23 00:00 11/15/23 06:00 11/15/23 07:02 Temperature 101.2 F H 99.1 F Pulse Rate 57 L Pulse Rate [Right Radial] 62 Respiratory Rate 16 Blood Pressure 149/89 H Pulse Oximetry 94 Oxygen Delivery 11/15/23 09:10 11/15/23 08:00 11/15/23 13:24 Temperature 99.5 F Pulse Rate Pulse Rate [Right Radial] Respiratory Rate Blood Pressure Pulse Oximetry 94 94 Oxygen Delivery Room Air Room Air 11/15/23 14:32 11/15/23 14:00 Temperature 99.2 F 98.0 F Pulse Rate 98 Pulse Rate [Right Radial] Respiratory Rate 18 Blood Pressure 121/76 Pulse Oximetry 93 Oxygen Delivery Intake/Output Intake/Output: Intake & Output 11/12/23 11/13/23 11/14/23 11/15/23 23:59 23:59 23:59 23:59 Intake Total 5980 2670 1885 Output Total 875 900 Balance 5105 1770 1885 Meds/Results Medications: Active Medications Generic Name Dose Route Start Last Admin Trade Name Freq PRN Reason Stop Dose Admin Acetaminophen 650 mg 11/13/23 12:08 11/15/23 13:24 Acetaminophen 325 Mg Tablet PO 650 mg Q4H PRN Administration Mild Pain (1-3) or Fever Hydrocodone Bitart/Acetaminophen 1 tab 11/13/23 09:04 11/15/23 04:54 Hydrocodone/Acetaminophen (*Crx) 5-325 Mg Tablet PO 1 tab Q4H PRN Administration Pain Rated 4-6 Hydrocodone Bitart/Acetaminophen 2 tab 11/13/23 09:04 11/15/23 08:52 Hydrocodone/Acetaminophen (*Crx) 5-325 Mg Tablet PO 2 tab Q6H PRN Administration Pain Rated 7-10 Amoxicillin/Clavulanate Potassium 1 tablet 11/16/23 06:00 Amoxicillin/Clavulanate K 875-125 Mg Tab PO Q8HR NAKUL Bisacodyl 5 mg 11/15/23 09:00 11/15/23 09:10 Bisacodyl 5 Mg Tablet Ec PO 5 mg QAM NAKUL Administration Chlordiazepoxide HCl 25 mg 11/14/23 18:00 11/15/23 12:04 Chlordiazepoxide (*Crx) 25 Mg Capsule PO 25 mg Q6HR NAKUL Administration Docusate Sodium 100 mg 11/14/23 21:00 11/15/23 04:54 Docusate Sodium 100 Mg Capsule PO 100 mg Q12HR NAKUL Administration Lorazepam 2 mg 11/14/23 13:17 Lorazepam Inj (*Crx) 2 Mg/Ml Vial IV PUSH Q2H PRN CIWA > 15 Morphine Sulfate 1 mg 11/13/23 09:04 11/14/23 23:50 Morphine Sulfate (*Crx) 2 Mg/Ml Inj IV PUSH 1 mg Q4H PRN Administration Pain Rated 6 or Greater Morphine Sulfate 2 mg 11/13/23 12:08 11/15/23 10:42 Morphine Sulfate (*Crx) 2 Mg/Ml Inj IV PUSH 2 mg Q4H PRN Administration Pain Rated 7-10 Ondansetron HCl 4 mg 11/14/23 13:17 Ondansetron Inj 4 Mg/2 Ml Vial IV PUSH Q6H PRN Nausea And Vomiting Oxybutynin Chloride 5 mg 11/13/23 09:04 11/15/23 08:46 Oxybutynin Chloride 5 Mg Tablet PO 5 mg TID PRN Administration Spasms Phenazopyridine HCl 200 mg 11/13/23 17:00 11/15/23 12:04 Phenazopyridine Hcl 100 Mg Tablet PO 200 mg TIDWM NAKUL Administration Radiology Results: ITS Impressions Abdomen/Pelvis CT 11/13/23 08:10 IMPRESSION: 1. Large obstructing stone at the right ureteropelvic junction with mild right hydronephrosis and perinephric stranding. Correlate with urinalysis to exclude associated urinary tract infection. Retrograde Pyelogram 11/13/23 09:11 IMPRESSION: 1. Right internal ureteral stent placement. Please refer to real-time procedural findings for details. Abdomen X-Ray 11/14/23 08:28 IMPRESSION: 1: No acute abdominal abnormality identified. Venous Doppler Study 11/14/23 14:20 IMPRESSION: Thrombosed basilic vein. Otherwise, Negative right upper extremity venous US. No deep vein thrombosis. Labs Labs: Laboratory Results - last 24 hr 11/14/23 11/14/23 11/15/23 15:45 18:06 05:12 WBC RBC Hgb Hct MCV MCH MCHC RDW Plt Count MPV Immature Gran % (Auto) Neut % (Auto) Lymph % (Auto) [place] % (Auto) Eos % (Auto) Baso % (Auto) Lymph # (Auto) [place] # (Auto) Eos # (Auto) Baso # (Auto) Abs Immat Gran (auto) Absolute Neuts (auto) Absolute Nucleated RBC Nucleated RBC % % Immature Plt Fraction Sodium Potassium 3.5 Chloride Carbon Dioxide Anion Gap BUN Creatinine Estim Creat Clear Calc Estimated GFR Glucose POC Capillary Glucose 163 H 117 H Calcium Total Bilirubin AST ALT Alkaline Phosphatase Total Protein Albumin 11/15/23 06:17 WBC 7.5 RBC 4.09 L Hgb 12.9 L Hct 38.5 L MCV 94.1 MCH 31.5 MCHC 33.5 RDW 13.9 Plt Count 115 L MPV 12.0 H Immature Gran % (Auto) 0.4 Neut % (Auto) 83.4 H Lymph % (Auto) 5.8 L [place] % (Auto) 8.5 Eos % (Auto) 1.6 Baso % (Auto) 0.3 Lymph # (Auto) 0.43 L [place] # (Auto) 0.6 Eos # (Auto) 0.1 Baso # (Auto) 0.0 Abs Immat Gran (auto) 0.03 Absolute Neuts (auto) 6.2 Absolute Nucleated RBC 0.000 Nucleated RBC % 0.0 % Immature Plt Fraction 7.8 Sodium 133 L Potassium 3.7 Chloride 100 Carbon Dioxide 25 Anion Gap 8 BUN 16 Creatinine 0.90 Estim Creat Clear Calc 98 Estimated GFR > 60 Glucose 114 H POC Capillary Glucose Calcium 8.1 L Total Bilirubin 0.4 AST 111 H ALT 130 H Alkaline Phosphatase 125 Total Protein 6.0 L Albumin 3.1 L Quality VTE Prophylaxis VTE prophylaxis: mechanical ordered Hospitalist [facility] Advance Care Plan I have confirmed that the patient's Advanced Care Plan is present, code status is documented, or surrogate decision maker is listed in patient medical record.: Yes Medication Reconciliation I have utilized all available resources to obtain, update and review the patients current medications (includes all prescriptions, OTC, herbals, cannabis, and nutritional supplements).: Yes
[2023-11-15] MEDS: MAGNESIUM CITRATE 300 ML BTL 150 ML PO (17:27)
[2023-11-15 17:52] LABS: Glucose Point of Care 120 mg/dl (65-105)
[2023-11-15 23:19] LABS: Glucose Point of Care 137 mg/dl (65-105)
[2023-11-16] MEDS: HYDROcodone/acetaminophen (*CRX) 5-325 MG TABLET 2 TAB PO ×3 (04:15→20:45)
[2023-11-16] MEDS: AMOXICILLIN/CLAVULANATE K 875-125 MG TAB 1 TABLET PO (05:07)
[2023-11-16 05:46] VITALS: BP 145/79; PULSE 55; RESP 20; TEMP 38.1; O2SAT 97
[2023-11-16 05:47] LABS: Glucose Point of Care 117 mg/dl (65-105)
[2023-11-16 05:55] VITALS: TEMP 38.2
[2023-11-16] MEDS: IBUPROFEN 400 MG TABLET PO (05:55)
--- NOTE | 2023-11-16 06:02 | PC.NURSE ---
Pt's at bedside throughout the whole night. Multiple complaints from and pt throughout the night about treatment, care, and medications. Pt refusing librium to be administered at 0600. Addressed all concerns and needs at this time. MyChart information given to to monitor test results.
[2023-11-16 06:55] VITALS: TEMP 37.2
[2023-11-16 07:45] LABS: Basophils Percent Auto 0.4 % (0.2-1.2); Eosinophils Absolute Auto 0.2 K/mm3 (0-0.3); Eosinophils Percent Auto 2.3 % (0-4.4); Hematocrit 38.6 % (42.0-52.0); Hemoglobin 12.9 g/dL (14.0-18.0); Immature Granulocyte Absolute 0.08 K/mm3 (0.00-0.031); Lymphocytes Absolute Auto 0.64 K/mm3 (0.9-3.2); Lymphocytes Percent Auto 7.7 % (18.3-44.2); Mean Corpuscular HGB Conc 33.4 g/dl (32-36); Mean Corpuscular Hemoglobin 30.8 pg (26-34); Mean Corpuscular Volume 92.1 fl (80-100); Mean Platelet Volume 12.2 fl (7.4-10.4); Monocytes Percent Auto 12.2 % (2.6-8.5); Neutrophils Absolute Auto 6.4 K/mm3 (1.3-6.7); Neutrophils Percent Auto 76.4 % (45.5-73.1); Platelet Count Result 141 k/mm3 (150-375); Red Blood Count 4.19 M/mm3 (4.6-6.20); Red Cell Distribution Width 13.9 % (11.5-14.5); White Blood Count 8.4 K/mm3 (4.5-10.0)
[2023-11-16 07:57] LABS: Alanine Aminotransferase 92 U/L (6-50); Albumin Level 3.1 g/dL (3.5-5.1); Alkaline Phosphatase 135 U/L (38-126); Anion Gap 9 mmol/L (4-12); Aspartate Amino Transferase 45 U/L (17-59); Bilirubin,Total 0.6 mg/dL (0.2-1.3); Blood Urea Nitrogen 10 mg/dL (9-20); Calcium 8.2 mg/dL (8.4-10.2); Carbon Dioxide 25 mmol/L (22-30); Chloride 101 mmol/L (98-107); Estimated CRCL calculation 98 ml/min; Estimated Glomerular Filt Rate > 60; Glucose 107 mg/dL (65-110); Potassium 3.4 mmol/L (3.4-5.0); Sodium 135 mmol/L (137-145)
--- NOTE | 2023-11-16 08:15 | WPDUROPN2 ---
Progress Note: A&P Assessment and Plan (1) Right ureteral calculus: Code(s): N20.1 - Calculus of ureter Status: Acute Assessment and Plan: Underwent cystoscopy with right ureteral stent placement on 11/13/2023. Will need definitive stone management at a later date following treatment of infection. Reviewed repeat CT 11/15/[address] Cruz; stent in expected position with right renal pelvis stone present and no other abnormal findings (2) Sepsis: Code(s): A41.9 - Sepsis, unspecified organism Status: Acute Assessment and Plan: Secondary to acute UTI/bacteremia. Still having low-grade fevers. Urine and blood cultures with growth of Proteus. Repeat blood cultures are pending. Would recommend broadening antibiotic coverage while awaiting repeat cultures. Will obtain repeat urine culture. (3) UTI (urinary tract infection): Code(s): N39.0 - Urinary tract infection, site not specified Status: Acute Assessment and Plan: As above Subjective Subjective Date/Time Seen: 11/16/23 08:15 Interval history: Feeling minimally improved today. Still endorses fevers and chills. Complains of burning in his urethra. Denies flank pain or back pain. No nausea or vomiting. Review of Systems Review of Systems: All systems reviewed & are unremarkable except as noted in HPI and below Exam Narrative: General: Awake, alert, comfortable, no acute distress HEENT: Normocephalic, atraumatic, sclerae anicteric Respiratory: Normal respiratory effort, no accessory muscle use Abdomen: Nondistended, soft, nontender Skin: Normal coloration, warm and dry Neurologic: No focal neuro deficits noted Psychiatric: Appropriate mood and affect, judgment and insight intact Objective Data Vital Signs Vital Signs: Vital Signs - 24 hr 11/15/23 09:10 11/15/23 13:24 11/15/23 14:32 Temperature 99.5 F 99.2 F Pulse Rate Respiratory Rate Blood Pressure Pulse Oximetry 94 Oxygen Delivery Room Air 11/15/23 14:00 11/15/23 20:37 11/16/23 05:55 Temperature 98.0 F 98.7 F 100.7 F H Pulse Rate 98 68 Respiratory Rate 18 18 Blood Pressure 121/76 135/71 Pulse Oximetry 93 98 Oxygen Delivery 11/16/23 05:46 11/16/23 06:55 Temperature 100.6 F H 98.9 F Pulse Rate 55 L Respiratory Rate 20 Blood Pressure 145/79 H Pulse Oximetry 97 Oxygen Delivery Intake/Output Intake/Output: Intake & Output 11/13/23 11/14/23 11/15/23 11/16/23 23:59 23:59 23:59 23:59 Intake Total 5980 2670 2145 1000 Output Total 875 900 Balance 5105 1770 2145 1000 Meds/Results Medications: Active Medications Generic Name Dose Route Start Last Admin Trade Name Freq PRN Reason Stop Dose Admin Acetaminophen 650 mg 11/13/23 12:08 11/15/23 13:24 Acetaminophen 325 Mg Tablet PO 650 mg Q4H PRN Administration Mild Pain (1-3) or Fever Hydrocodone Bitart/Acetaminophen 1 tab 11/13/23 09:04 11/15/23 04:54 Hydrocodone/Acetaminophen (*Crx) 5-325 Mg Tablet PO 1 tab Q4H PRN Administration Pain Rated 4-6 Hydrocodone Bitart/Acetaminophen 2 tab 11/13/23 09:04 11/16/23 04:15 Hydrocodone/Acetaminophen (*Crx) 5-325 Mg Tablet PO 2 tab Q6H PRN Administration Pain Rated 7-10 Amoxicillin/Clavulanate Potassium 1 tablet 11/16/23 06:00 11/16/23 05:07 Amoxicillin/Clavulanate K 875-125 Mg Tab PO 1 tablet Q8HR NAKUL Administration Bisacodyl 5 mg 11/15/23 09:00 11/15/23 09:10 Bisacodyl 5 Mg Tablet Ec PO 5 mg QAM NAKUL Administration Chlordiazepoxide HCl 25 mg 11/14/23 18:00 11/16/23 05:08 Chlordiazepoxide (*Crx) 25 Mg Capsule PO Not Given Q6HR NAKUL Docusate Sodium 100 mg 11/14/23 21:00 11/15/23 20:00 Docusate Sodium 100 Mg Capsule PO 100 mg Q12HR NAKUL Administration Ibuprofen 400 mg 11/15/23 21:47 11/16/23 05:55 Ibuprofen 400 Mg Tablet PO 400 mg Q6H PRN Administration Pain or Fever Lorazepam 2 mg 11/14/23 13:17 Lorazepam Inj (*Crx) 2 Mg/Ml Vial IV PUSH Q2H PRN CIWA > 15 Morphine Sulfate 1 mg 11/13/23 09:04 11/14/23 23:50 Morphine Sulfate (*Crx) 2 Mg/Ml Inj IV PUSH 1 mg Q4H PRN Administration Pain Rated 6 or Greater Morphine Sulfate 2 mg 11/13/23 12:08 11/15/23 20:01 Morphine Sulfate (*Crx) 2 Mg/Ml Inj IV PUSH 2 mg Q4H PRN Administration Pain Rated 7-10 Ondansetron HCl 4 mg 11/14/23 13:17 Ondansetron Inj 4 Mg/2 Ml Vial IV PUSH Q6H PRN Nausea And Vomiting Oxybutynin Chloride 5 mg 11/13/23 09:04 11/15/23 08:46 Oxybutynin Chloride 5 Mg Tablet PO 5 mg TID PRN Administration Spasms Phenazopyridine HCl 200 mg 11/13/23 17:00 11/15/23 17:03 Phenazopyridine Hcl 100 Mg Tablet PO 200 mg TIDWM NAKUL Administration Radiology Results: ITS Impressions Abdomen/Pelvis CT 11/13/23 08:10 IMPRESSION: 1. Large obstructing stone at the right ureteropelvic junction with mild right hydronephrosis and perinephric stranding. Correlate with urinalysis to exclude associated urinary tract infection. Retrograde Pyelogram 11/13/23 09:11 IMPRESSION: 1. Right internal ureteral stent placement. Please refer to real-time procedural findings for details. Abdomen X-Ray 11/14/23 08:28 IMPRESSION: 1: No acute abdominal abnormality identified. Venous Doppler Study 11/14/23 14:20 IMPRESSION: Thrombosed basilic vein. Otherwise, Negative right upper extremity venous US. No deep vein thrombosis. Chest/Abdomen/Pelvis CT 11/15/23 16:52 IMPRESSION: CHEST: 1. Bilateral basal atelectasis with minimal bilateral pleural effusion. ABDOMEN/PELVIS: 1. Right double-J stent with right renal pelvis stone. 2. No acute appendicitis, diverticulitis or intestinal obstruction. Labs Labs: Laboratory Results - last 24 hr 11/15/23 11/15/23 11/16/23 17:49 23:14 05:43 WBC RBC Hgb Hct MCV MCH MCHC RDW Plt Count MPV Immature Gran % (Auto) Neut % (Auto) Lymph % (Auto) [place] % (Auto) Eos % (Auto) Baso % (Auto) Lymph # (Auto) [place] # (Auto) Eos # (Auto) Baso # (Auto) Abs Immat Gran (auto) Absolute Neuts (auto) Absolute Nucleated RBC Nucleated RBC % Sodium Potassium Chloride Carbon Dioxide Anion Gap BUN Creatinine Estim Creat Clear Calc Estimated GFR Glucose POC Capillary Glucose 120 H 137 H 117 H Calcium Total Bilirubin AST ALT Alkaline Phosphatase Total Protein Albumin 11/15/ 07:04 WBC 8.4 RBC 4.19 L Hgb 12.9 L Hct 38.6 L MCV 92.1 MCH 30.8 MCHC 33.4 RDW 13.9 Plt Count 141 L MPV 12.2 H Immature Gran % (Auto) 1.0 H Neut % (Auto) 76.4 H Lymph % (Auto) 7.7 L [place] % (Auto) 12.2 H Eos % (Auto) 2.3 Baso % (Auto) 0.4 Lymph # (Auto) 0.64 L [place] # (Auto) 1.0 H Eos # (Auto) 0.2 Baso # (Auto) 0.0 Abs Immat Gran (auto) 0.08 H Absolute Neuts (auto) 6.4 Absolute Nucleated RBC 0.000 Nucleated RBC % 0.0 Sodium 135 L Potassium 3.4 Chloride 101 Carbon Dioxide 25 Anion Gap 9 BUN 10 D Creatinine 0.90 Estim Creat Clear Calc 98 Estimated GFR > 60 Glucose 107 POC Capillary Glucose Calcium 8.2 L Total Bilirubin 0.6 AST 45 ALT 92 H Alkaline Phosphatase 135 H Total Protein 6.0 L Albumin 3.1 L
[2023-11-16] MEDS: oxyBUTYnin CHLORIDE 5 MG TABLET PO (08:31)
[2023-11-16] MEDS: PHENAZOPYRIDINE HCL 100 MG TABLET 200 MG PO ×3 (08:31→17:01)
[2023-11-16] MEDS: BISACODYL 5 MG TABLET EC PO (08:31)
[2023-11-16] MEDS: DOCUSATE SODIUM 100 MG CAPSULE PO ×2 (08:31→20:46)
[2023-11-16] MEDS: MORPHINE SULFATE (*CRX) 2 MG/ML INJ IV PUSH ×2 (08:43→17:10)
[2023-11-16] MEDS: levoFLOXacin 750 MG/D5W 150 ML 750 MG/150 ML BAG 100 MG IVPB (09:41)
[2023-11-16 12:30] LABS: Glucose Point of Care 110 mg/dl (65-105)
--- NOTE | 2023-11-16 13:42 | P.PNIM_ITS ---
Progress Note: A&P Assessment and Plan (1) Sepsis: Code(s): A41.9 - Sepsis, unspecified organism Status: Acute Assessment and Plan: 11/13/23: * Patient meeting sepsis criteria with temp of 101.1?, heart rate 103, respiratory rate 27, initial white blood count 15.5 and likely source of infection pyelonephritis/UTI * CT of the abdomen pelvis shown obstructing stone in the right ureter with pyelonephrosis * Urine and blood cultures were obtained and are pending * Patient started on Rocephin 11/14/23: * Of 2 vials blood showing Gram-negative bacilli isolated on preliminary read * Urine culture still pending * Continue with Rocephin * Still febrile today with a T-max of 103? * White blood cell count 11.3 11/15/23: * Blood and urine cultures showing Proteus mirabilis * Rocephin discontinued due to increased liver enzymes * Will start Augmentin * White blood cell count 7.5 * T-max 101.2 * New set of blood cultures pending 11/16/23: * Patient started on Levaquin IV instead considering he is still febrile. * Blood culture showing no growth on preliminary read on the 2nd set * White blood cell count 8.4 * T-max 100.7? * CT of chest abdomen pelvis was essentially negative * Urology following (2) Right ureteral calculus: Code(s): N20.1 - Calculus of ureter Status: Acute Assessment and Plan: 11/13/23: * CT of the abdomen pelvis showing obstructing stone * Urology consulted * Patient was taken to the OR today for a cystoscopy with right ureter stent placement * Reporting pain with urination, was started on Pyridium and currently on oxybutynin * Continue pain control * Continue IVF for now 11/14/23: * Will give 800 mg ibuprofen IV now for increased pain/inflammation due to movement of the stone * Urology following * KUB today did not show a stone which is likely why he is having increased pain today 11/15/23: * Urology following * Patient still having increased pain and fevers again today * Will go ahead and get a CT his chest abdomen pelvis 11/16/23: * Urology following * T-max 100.7? * CT of chest abdomen pelvis was essentially negative, shown stent in appropriate position and a right renal pelvic stone (3) Pyelonephritis: Code(s): N12 - Tubulo-interstitial nephritis, not specified as acute or chronic Status: Acute Assessment and Plan: 11/13/23: * CT of the abdomen and pelvis showing pyelonephritis with obstructing stone * See above plan of care 11/14/23: * See above plan of care (4) Alcohol withdrawal: Code(s): F10.939 - Alcohol use, unspecified with withdrawal, unspecified Status: Acute Assessment and Plan: 11/14/23: * Patient high heart rate and tremors according to nursing however this can be explained with his high temperatures and rigors * Patient drinks at least 8 beers a day * CIWA protocol ordered as precautionary 11/15/23: * No change to current treatment plan (5) Constipation: Code(s): K59.00 - Constipation, unspecified Status: Acute Assessment and Plan: 11/15/23: * Patient requesting stool softener disease feeling constipated * Colace and Dulcolax ordered * Called by nursing states patient has still not had a bowel, patient was ordered 150 ml Mag citrate x1 now 11/16/23: * Patient still have not issues with constipation, will try a fleets enema today Time Spent With Patient Time with patient: 25 - 35 minutes Subjective Date/time seen: 11/16/23 13:42 Interval history: Interval history: 11/13/23: This is a 43-year-old male with a significant past medical history of kidney stones presents to the hospital with flank pain. Patient states that he started noticing symptoms yesterday with right sided flank pain. He states he took his trazodone and slept for about 3 hours and woke up with worsening flank pain and burning with urination. He states that where he works it is hot and he usually drinks about 2 gallons of water a day. He states he has had kidney stones in the past but he can't remember if they told him what type of stones he had. Last time he was worked up for kidney stones, he was seen at a hospital in [place], [place]. He denies any family history of kidney stones. He also denies drinking soda or energy drinks. Patient denies any nausea, vomiting, diarrhea, chest pain, or shortness of breath. Patient endorses fever with chills, flank pain, and burning pain with urination. Work up in the hospital included an abdomen pelvis CT showing large right ureteral obstructing stone measuring 17 x 7x 8 mm stone with right sided hydronephrosis. Initial labs showed a white blood cell count of 15.5, otherwise unremarkable. UA was obtained and showed 1+ urine protein, 2+ urine ketones, 2+ urine blood, positive nitrate, 1+ leukocyte, greater than 100 urine WBC, 11-20 urine RBC, 2+ bacteria. Blood and urine cultures are obtained and are pending. Patient was initially afebrile while in the ED how ever later went into septic shock with temp of 101.1?, rigors, heart rate 103, respiratory rate 27. Patient was given IV fluids, pain medication, and started on Rocephin while in the ED. Urology was also consulted and took patient to the OR for cystoscopy with stent placement to the right ureter today. 11/14/23: Patient reporting fever, chills, and numbness in right hand. Patient had IV in right AC and started complaining of pain last night. Nursing took IV out and placed new on the other arm but he his still complaining of numbness and tingling in his right thumb and first finger. He also is reporting urethral pain and reports throbbing pain in his penis as if he is trying to pass the stone. KUB done today did not show any stone present so this may be possible that it moved down. T-max today 103. 7: Patient is still febrile today with a T-max of 101.2?. He appears ill and generally uncomfortable. He is still reporting urethral pain that is unrelieved with pain medication. He is also reporting constipation. White blood cell count today is 7.5, liver enzymes increased AST 111, ALT 130. 11/16/23: Patient states he is feeling slightly better today. He is still running low- grade temp of 100.7? over night. Liver enzymes are down today. He is still reporting constipation. He did state that he had 1 small bowel movement today. Review of Systems Review of Systems: All systems reviewed & are unremarkable except as noted in HPI and below Constitutional: Constitutional: Reports as per HPI and Reports no additional constitutional complaints Eyes: Eyes: Reports as per HPI and Reports no additional eye complaints ENT: Reports system reviewed and no additional complaints, except as documented and Reports as per HPI Cardiovascular: Cardiovascular: Reports as per HPI and Reports no additional cardiovascular complaints Respiratory: Respiratory: Reports as per HPI and Reports no additional respiratory complaints Gastrointestinal: Gastrointestinal: Reports as per HPI and Reports no additional gastrointestinal complaints Genitourinary: Genitourinary: Reports no additional male genitourinary complaints and Reports as per HPI Musculoskeletal: Musculoskeletal: Reports no additional musculoskeletal complaints and Reports as per HPI Integumentary/Breasts: Skin/Breast: Reports system reviewed and no additional complaints, except as docu and Reports as per HPI Neurologic: Reports system reviewed and no additional complaints, except as documented and Reports as per HPI Psychiatric: Psychiatric: Reports no additional psychiatric complaints and Reports as per HPI Exam Narrative: General: Acutely ill appearing Cardiac: Normal S1 and S2. RRR, No murmur, gallops or friction rubs, peripheral pulses intact. Respiratory: Lungs clear to auscultation, no adventitious lung sounds, currently on room air Gastrointestinal: soft, non-distended, non-tender, normoactive bowel sounds. : pain with urination, voiding in urinal, clear orange urine noted. Neuro: Alert and oriented x4 Objective Data Vital Signs Vital Signs: Vital Signs - 24 hr 11/15/23 14:32 11/15/23 14:00 11/15/23 20:37 Temperature 99.2 F 98.0 F 98.7 F Pulse Rate 98 68 Respiratory Rate 18 18 Blood Pressure 121/76 135/71 Pulse Oximetry 93 98 11/16/23 05:55 11/16/23 05:46 11/16/23 06:55 Temperature 100.7 F H 100.6 F H 98.9 F Pulse Rate 55 L Respiratory Rate 20 Blood Pressure 145/79 H Pulse Oximetry 97 Intake/Output Intake/Output: Intake & Output 11/13/23 11/14/23 11/15/23 11/16/23 23:59 23:59 23:59 23:59 Intake Total 5980 2670 2145 1650 Output Total 877 900 Balance 5105 1770 2145 1650 Meds/Results Medications: Active Medications Generic Name Dose Route Start Last Admin Trade Name Freq PRN Reason Stop Dose Admin Acetaminophen 650 mg 11/13/23 12:08 11/15/23 13:24 Acetaminophen 325 Mg Tablet PO 650 mg Q4H PRN Administration Mild Pain (1-3) or Fever Hydrocodone Bitart/Acetaminophen 1 tab 11/13/23 09:04 11/15/23 04:54 Hydrocodone/Acetaminophen (*Crx) 5-325 Mg Tablet PO 1 tab Q4H PRN Administration Pain Rated 4-6 Hydrocodone Bitart/Acetaminophen 2 tab 11/13/23 09:04 11/16/23 12:24 Hydrocodone/Acetaminophen (*Crx) 5-325 Mg Tablet PO 2 tab Q6H PRN Administration Pain Rated 7-10 Bisacodyl 5 mg 11/15/23 09:00 11/16/23 08:31 Bisacodyl 5 Mg Tablet Ec PO 5 mg QAM NAKUL Administration Docusate Sodium 100 mg 11/14/23 21:00 11/16/23 08:31 Docusate Sodium 100 Mg Capsule PO 100 mg Q12HR NAKUL Administration Levofloxacin/Dextrose 750 mg in 150 mls @ 100 mls/hr 11/16/23 09:00 11/16/23 11:11 Levaquin 750 Mg/D5w 150 Ml IVPB Infused Q24H NAKUL Infusion Ibuprofen 400 mg 11/15/23 21:47 11/16/23 05:55 Ibuprofen 400 Mg Tablet PO 400 mg Q6H PRN Administration Pain or Fever Lorazepam 2 mg 11/14/23 13:17 Lorazepam Inj (*Crx) 2 Mg/Ml Vial IV PUSH Q2H PRN CIWA > 15 Morphine Sulfate 1 mg 11/13/23 09:04 11/14/23 23:50 Morphine Sulfate (*Crx) 2 Mg/Ml Inj IV PUSH 1 mg Q4H PRN Administration Pain Rated 6 or Greater Morphine Sulfate 2 mg 11/13/23 12:08 11/16/23 08:43 Morphine Sulfate (*Crx) 2 Mg/Ml Inj IV PUSH 2 mg Q4H PRN Administration Pain Rated 7-10 Ondansetron HCl 4 mg 11/14/23 13:17 Ondansetron Inj 4 Mg/2 Ml Vial IV PUSH Q6H PRN Nausea And Vomiting Oxybutynin Chloride 5 mg 11/13/23 09:04 11/16/23 08:31 Oxybutynin Chloride 5 Mg Tablet PO 5 mg TID PRN Administration Spasms Phenazopyridine HCl 200 mg 11/13/23 17:00 11/16/23 12:22 Phenazopyridine Hcl 100 Mg Tablet PO 200 mg TIDWM NAKUL Administration Radiology Results: ITS Impressions Abdomen/Pelvis CT 11/13/23 08:10 IMPRESSION: 1. Large obstructing stone at the right ureteropelvic junction with mild right hydronephrosis and perinephric stranding. Correlate with urinalysis to exclude associated urinary tract infection. Retrograde Pyelogram 11/13/23 09:11 IMPRESSION: 1. Right internal ureteral stent placement. Please refer to real-time procedural findings for details. Venous Doppler Study 11/14/23 14:20 IMPRESSION: Thrombosed basilic vein. Otherwise, Negative right upper extremity venous US. No deep vein thrombosis. Chest/Abdomen/Pelvis CT 11/15/23 16:52 IMPRESSION: CHEST: 1. Bilateral basal atelectasis with minimal bilateral pleural effusion. ABDOMEN/PELVIS: 1. Right double-J stent with right renal pelvis stone. 2. No acute appendicitis, diverticulitis or intestinal obstruction. Abdomen X-Ray 11/16/23 09:41 IMPRESSION: 1. 10 x 8 x 5 mm stone at the right ureteropelvic junction alongside a right internal ureteral stent which is in expected position. 2. Bibasilar airspace opacities which could represent atelectasis or pneumonia. Labs Labs: Laboratory Results - last 24 hr 11/15/23 11/15/23 11/16/23 17:49 23:14 05:43 WBC RBC Hgb Hct MCV MCH MCHC RDW Plt Count MPV Immature Gran % (Auto) Neut % (Auto) Lymph % (Auto) [place] % (Auto) Eos % (Auto) Baso % (Auto) Lymph # (Auto) [place] # (Auto) Eos # (Auto) Baso # (Auto) Abs Immat Gran (auto) Absolute Neuts (auto) Absolute Nucleated RBC Nucleated RBC % Sodium Potassium Chloride Carbon Dioxide Anion Gap BUN Creatinine Estim Creat Clear Calc Estimated GFR Glucose POC Capillary Glucose 120 H 137 H 117 H Calcium Total Bilirubin AST ALT Alkaline Phosphatase Total Protein Albumin 11/16/23 11/16/23 07:04 12:28 WBC 8.4 RBC 4.19 L Hgb 12.9 L Hct 38.6 L MCV 92.1 MCH 30.8 MCHC 33.4 RDW 13.9 Plt Count 141 L MPV 12.2 H Immature Gran % (Auto) 1.0 H Neut % (Auto) 76.4 H Lymph % (Auto) 7.7 L [place] % (Auto) 12.2 H Eos % (Auto) 2.3 Baso % (Auto) 0.4 Lymph # (Auto) 0.64 L [place] # (Auto) 1.0 H Eos # (Auto) 0.2 Baso # (Auto) 0.0 Abs Immat Gran (auto) 0.08 H Absolute Neuts (auto) 6.4 Absolute Nucleated RBC 0.000 Nucleated RBC % 0.0 Sodium 135 L Potassium 3.4 Chloride 101 Carbon Dioxide 25 Anion Gap 9 BUN 10 D Creatinine 0.90 Estim Creat Clear Calc 98 Estimated GFR > 60 Glucose 107 POC Capillary Glucose 110 H Calcium 8.2 L Total Bilirubin 0.6 AST 45 ALT 92 H Alkaline Phosphatase 135 H Total Protein 6.0 L Albumin 3.1 L Quality VTE Prophylaxis VTE prophylaxis: mechanical ordered Hospitalist MIPS Advance Care Plan I have confirmed that the patient's Advanced Care Plan is present, code status is documented, or surrogate decision maker is listed in patient medical record.: Yes Medication Reconciliation I have utilized all available resources to obtain, update and review the patients current medications (includes all prescriptions, OTC, herbals, cannabis, and nutritional supplements).: Yes
[2023-11-16 14:00] VITALS: BP 146/81; PULSE 88; RESP 96; TEMP 36; O2SAT 18
[2023-11-16] MEDS: traZODone HCL 50 MG TABLET PO (20:46)
[2023-11-16 22:00] VITALS: BP 123/80; PULSE 61; RESP 20; TEMP 36.8; O2SAT 94
[2023-11-17] MEDS: HYDROcodone/acetaminophen (*CRX) 5-325 MG TABLET 2 TAB PO ×2 (05:35→12:08)
[2023-11-17 06:00] VITALS: BP 138/83; PULSE 60; RESP 18; TEMP 36.9; O2SAT 95
[2023-11-17 06:42] LABS: Hematocrit 39.8 % (42.0-52.0); Hemoglobin 13.2 g/dL (14.0-18.0); Mean Corpuscular HGB Conc 33.2 g/dl (32-36); Mean Corpuscular Hemoglobin 30.8 pg (26-34); Mean Platelet Volume 11.6 fl (7.4-10.4); Platelet Count Result 168 k/mm3 (150-375); Red Blood Count 4.28 M/mm3 (4.6-6.20); Red Cell Distribution Width 14.4 % (11.5-14.5)
[2023-11-17 06:46] LABS: Basophils Absolute Auto 0.1 K/mm3 (0.0-0.1); Basophils Percent Auto 0.6 % (0.2-1.2); Eosinophils Absolute Auto 0.4 K/mm3 (0-0.3); Eosinophils Percent Auto 5.7 % (0-4.4); Hematocrit 40.5 % (42.0-52.0); Hemoglobin 13.5 g/dL (14.0-18.0); Immature Granulocyte Absolute 0.15 K/mm3 (0.00-0.031); Immature Granulocyte Percent A 1.9 % (0-0.5); Lymphocytes Absolute Auto 1.54 K/mm3 (0.9-3.2); Lymphocytes Percent Auto 19.8 % (18.3-44.2); Mean Corpuscular HGB Conc 33.3 g/dl (32-36); Mean Corpuscular Hemoglobin 30.9 pg (26-34); Mean Corpuscular Volume 92.7 fl (80-100); Monocytes Absolute Auto 1.8 K/mm3 (0.1-0.6); Monocytes Percent Auto 22.8 % (2.6-8.5); Neutrophils Absolute Auto 3.8 K/mm3 (1.3-6.7); Neutrophils Percent Auto 49.2 % (45.5-73.1); Platelet Count Result 155 k/mm3 (150-375); Red Blood Count 4.37 M/mm3 (4.6-6.20); Red Cell Distribution Width 14.3 % (11.5-14.5); White Blood Count 7.8 K/mm3 (4.5-10.0)
[2023-11-17 06:53] LABS: Alanine Aminotransferase 123 U/L (6-50); Albumin Level 3.1 g/dL (3.5-5.1); Alkaline Phosphatase 114 U/L (38-126); Anion Gap 9 mmol/L (4-12); Aspartate Amino Transferase 92 U/L (17-59); Bilirubin,Total 0.4 mg/dL (0.2-1.3); Blood Urea Nitrogen 20 mg/dL (9-20); Carbon Dioxide 24 mmol/L (22-30); Chloride 103 mmol/L (98-107); Estimated CRCL calculation 81 ml/min; Estimated Glomerular Filt Rate > 60; Glucose 97 mg/dL (65-110); Potassium 4.3 mmol/L (3.4-5.0); Sodium 136 mmol/L (137-145)
[2023-11-17 07:00] LABS: Alanine Aminotransferase 120 U/L (6-50); Alkaline Phosphatase 109 U/L (38-126); Anion Gap 8 mmol/L (4-12); Aspartate Amino Transferase 93 U/L (17-59); Bilirubin,Total 0.4 mg/dL (0.2-1.3); Blood Urea Nitrogen 19 mg/dL (9-20); Calcium 8.1 mg/dL (8.4-10.2); Carbon Dioxide 24 mmol/L (22-30); Chloride 104 mmol/L (98-107); Estimated CRCL calculation 98 ml/min; Estimated Glomerular Filt Rate > 60; Glucose 105 mg/dL (65-110); Potassium 3.8 mmol/L (3.4-5.0); Sodium 136 mmol/L (137-145)
[2023-11-17 08:36] LABS: Platelet Estimate Adequate (Adequate); Schistocytes None Seen
--- NOTE | 2023-11-17 09:05 | WPDUROPN2 ---
Progress Note: A&P Assessment and Plan (1) Right ureteral calculus: Code(s): N20.1 - Calculus of ureter Status: Acute Assessment and Plan: Underwent cystoscopy with right ureteral stent placement on 11/13/2023. Will need definitive stone management at a later date following treatment of infection. Reviewed repeat CT 11/15/[address] Cruz; stent in expected position with right renal pelvis stone present. Plan for outpatient ureteroscopy. (2) Sepsis: Code(s): A41.9 - Sepsis, unspecified organism Status: Acute Assessment and Plan: Secondary to acute UTI/bacteremia. has been febrile throughout admission, though remaining afebrile so far today. Urine and blood cultures with growth of Proteus. Repeat blood and urine cultures are pending. Continue empiric antibiotics while awaiting repeat cultures. (3) UTI (urinary tract infection): Code(s): N39.0 - Urinary tract infection, site not specified Status: Acute Assessment and Plan: As above. Okay for discharge from urologic standpoint pending finalization of repeat cultures and resolution of fever Subjective Subjective Date/Time Seen: 11/17/23 09:05 Interval history: Asleep during encounter. Resting comfortably Review of Systems Review of Systems: ROS unobtainable: Yes other (Pt asleep) Exam Narrative: General: asleep, resting comfortably, no acute distress HEENT: Normocephalic, atraumatic Respiratory: Normal respiratory effort, no accessory muscle use Skin: Normal coloration, warm and dry Objective Data Vital Signs Vital Signs: Vital Signs - 24 hr 11/16/23 14:00 11/16/23 22:00 11/17/23 06:00 Temperature 96.8 F L 98.3 F 98.4 F Pulse Rate 88 61 60 Respiratory Rate 96 H 20 18 Blood Pressure 146/81 H 123/80 138/83 Pulse Oximetry 18 L 94 95 Intake/Output Intake/Output: Intake & Output 11/14/23 11/15/23 11/16/23 11/17/23 23:59 23:59 23:59 23:59 Intake Total 2669 2144 2009 71 Output Total 900 Balance 1770 2144 2009 716 Meds/Results Medications: Active Medications Generic Name Dose Route Start Last Admin Trade Name Freq PRN Reason Stop Dose Admin Acetaminophen 650 mg 11/13/23 12:08 11/15/23 13:24 Acetaminophen 325 Mg Tablet PO 650 mg Q4H PRN Administration Mild Pain (1-3) or Fever Hydrocodone Bitart/Acetaminophen 1 tab 11/13/23 09:04 11/15/23 04:54 Hydrocodone/Acetaminophen (*Crx) 5-325 Mg Tablet PO 1 tab Q4H PRN Administration Pain Rated 4-6 Hydrocodone Bitart/Acetaminophen 2 tab 11/13/23 09:04 11/17/23 05:35 Hydrocodone/Acetaminophen (*Crx) 5-325 Mg Tablet PO 2 tab Q6H PRN Administration Pain Rated 7-10 Bisacodyl 5 mg 11/15/23 09:00 11/16/23 08:31 Bisacodyl 5 Mg Tablet Ec PO 5 mg QAM NAKUL Administration Docusate Sodium 100 mg 11/14/23 21:00 11/16/23 20:46 Docusate Sodium 100 Mg Capsule PO 100 mg Q12HR NAKUL Administration Levofloxacin/Dextrose 750 mg in 150 mls @ 100 mls/hr 11/16/23 09:00 11/16/23 11:11 Levaquin 750 Mg/D5w 150 Ml IVPB Infused Q24H NAKUL Infusion Ibuprofen 400 mg 11/15/23 21:47 11/16/23 05:55 Ibuprofen 400 Mg Tablet PO 400 mg Q6H PRN Administration Pain or Fever Lorazepam 2 mg 11/14/23 13:17 Lorazepam Inj (*Crx) 2 Mg/Ml Vial IV PUSH Q2H PRN CIWA > 15 Morphine Sulfate 1 mg 11/13/23 09:04 11/14/23 23:50 Morphine Sulfate (*Crx) 2 Mg/Ml Inj IV PUSH 1 mg Q4H PRN Administration Pain Rated 6 or Greater Morphine Sulfate 2 mg 11/13/23 12:08 11/16/23 17:10 Morphine Sulfate (*Crx) 2 Mg/Ml Inj IV PUSH 2 mg Q4H PRN Administration Pain Rated 7-10 Ondansetron HCl 4 mg 11/14/23 13:17 Ondansetron Inj 4 Mg/2 Ml Vial IV PUSH Q6H PRN Nausea And Vomiting Oxybutynin Chloride 5 mg 11/13/23 09:04 11/16/23 08:31 Oxybutynin Chloride 5 Mg Tablet PO 5 mg TID PRN Administration Spasms Phenazopyridine HCl 200 mg 11/13/23 17:00 11/16/23 17:01 Phenazopyridine Hcl 100 Mg Tablet PO 200 mg TIDWM NAKUL Administration Trazodone HCl 50 mg 11/16/23 21:00 11/16/23 20:46 Trazodone Hcl 50 Mg Tablet PO 50 mg HS NAKUL Administration Radiology Results: ITS Impressions Abdomen/Pelvis CT 11/13/23 08:10 IMPRESSION: 1. Large obstructing stone at the right ureteropelvic junction with mild right hydronephrosis and perinephric stranding. Correlate with urinalysis to exclude associated urinary tract infection. Retrograde Pyelogram 11/13/23 09:11 IMPRESSION: 1. Right internal ureteral stent placement. Please refer to real-time procedural findings for details. Venous Doppler Study 11/14/23 14:20 IMPRESSION: Thrombosed basilic vein. Otherwise, Negative right upper extremity venous US. No deep vein thrombosis. Chest/Abdomen/Pelvis CT 11/15/23 16:52 IMPRESSION: CHEST: 1. Bilateral basal atelectasis with minimal bilateral pleural effusion. ABDOMEN/PELVIS: 1. Right double-J stent with right renal pelvis stone. 2. No acute appendicitis, diverticulitis or intestinal obstruction. Abdomen X-Ray 11/16/23 09:41 IMPRESSION: 1. 10 x 8 x 5 mm stone at the right ureteropelvic junction alongside a right internal ureteral stent which is in expected position. 2. Bibasilar airspace opacities which could represent atelectasis or pneumonia. Labs Labs: Laboratory Results - last 24 hr 11/16/23 11/17/23 11/17/23 12:28 06:11 06:37 WBC 7.8 7.0 RBC 4.37 L 4.28 L Hgb 13.5 L 13.2 L Hct 40.5 L 39.8 L MCV 92.7 93.0 MCH 30.9 30.8 MCHC 33.3 33.2 RDW 14.3 14.4 Plt Count 155 168 MPV 12.0 H 11.6 H Immature Gran % (Auto) 1.9 H Neut % (Auto) 49.2 Lymph % (Auto) 19.8 [place] % (Auto) 22.8 H Eos % (Auto) 5.7 H Baso % (Auto) 0.6 Lymph # (Auto) 1.54 [place] # (Auto) 1.8 H Eos # (Auto) 0.4 H Baso # (Auto) 0.1 Abs Immat Gran (auto) 0.15 H Absolute Neuts (auto) 3.8 Absolute Nucleated RBC 0.000 Nucleated RBC % 0.0 Platelet Estimate Adequate Schistocytes None seen Sodium 136 L 136 L Potassium 4.3 3.8 Chloride 103 104 Carbon Dioxide 24 24 Anion Gap 9 8 BUN 20 D 19 Creatinine 1.10 0.90 Estim Creat Clear Calc 81 98 Estimated GFR > 60 > 60 Glucose 97 105 POC Capillary Glucose 110 H Calcium 8.0 L 8.1 L Total Bilirubin 0.4 0.4 AST 92 H 93 H ALT 123 H 120 H Alkaline Phosphatase 114 109 Total Protein 6.0 L 6.0 L Albumin 3.1 L 3.0 L
[2023-11-17] MEDS: DOCUSATE SODIUM 100 MG CAPSULE PO (09:14)
[2023-11-17] MEDS: PHENAZOPYRIDINE HCL 100 MG TABLET 200 MG PO ×2 (09:14→12:09)
[2023-11-17] MEDS: levoFLOXacin 750 MG/D5W 150 ML 750 MG/150 ML BAG 100 MG IVPB (09:14)
[2023-11-17] MEDS: BISACODYL 5 MG TABLET EC PO (09:14)
[2023-11-17 14:00] VITALS: BP 140/85; PULSE 88; RESP 20; TEMP 36.8; O2SAT 97
[2023-11-17 14:42] LABS: HAV RESULT Negative (Negative); Hepatitis B Core IgM Result Negative (Negative)
[2023-11-17 14:53] LABS: Hepatitis B Surface Antigen Negative (Negative)
[2023-11-17 14:54] LABS: Hepatitis C Virus Antibody Negative (Negative)
--- NOTE | 2023-11-17 15:09 | P.DS_ITS ---
DS: Admitting Diagnosis Discharge Date 11/17/23 Admitting Diagnosis Sepsis Right ureteral calculus Pyelonephritis DS: Discharge Diagnosis Discharge Diagnosis (1) Sepsis: Code(s): A41.9 - Sepsis, unspecified organism Status: Acute (2) Right ureteral calculus: Code(s): N20.1 - Calculus of ureter Status: Acute (3) Pyelonephritis: Code(s): N12 - Tubulo-interstitial nephritis, not specified as acute or chronic Status: Acute (4) Alcohol withdrawal: Code(s): F10.939 - Alcohol use, unspecified with withdrawal, unspecified Status: Acute (5) Constipation: Code(s): K59.00 - Constipation, unspecified Status: Acute DS: Summary Hospital Course Reason for hospitalization: Sepsis Right ureteral calculus Pyelonephritis Hospital Course: This is a 43-year-old male with a significant past medical history of kidney stones presents to the hospital with flank pain. Patient states that he started noticing symptoms yesterday with right sided flank pain. He states he took his trazodone and slept for about 3 hours and woke up with worsening flank pain and burning with urination. He states that where he works it is hot and he usually drinks about 2 gallons of water a day. He states he has had kidney stones in the past but he can't remember if they told him what type of stones he had. Last time he was worked up for kidney stones, he was seen at a hospital in [place], [place]. He denies any family history of kidney stones. He also denies drinking soda or energy drinks. Patient denies any nausea, vomiting, diarrhea, chest pain, or shortness of breath. Patient endorses fever with chills, flank pain, and burning pain with urination. Work up in the hospital included an abdomen pelvis CT showing large right ureteral obstructing stone measuring 17 x 7x 8 mm stone with right sided hydronephrosis. Initial labs showed a white blood cell count of 15.5, otherwise unremarkable. UA was obtained and showed 1+ urine protein, 2+ urine ketones, 2+ urine blood, positive nitrate, 1+ leukocyte, greater than 100 urine WBC, 11-20 urine RBC, 2+ bacteria. Blood and urine cult ures are obtained and are pending. Patient was initially afebrile while in the ED how ever later went into septic shock with temp of 101.1?, rigors, heart rate 103, respiratory rate 27. Patient was given IV fluids, pain medication, and started on Rocephin while in the ED. Urology was also consulted and took patient to the OR for cystoscopy with stent placement to the right ureter today. Patient had increased pain and was running fevers for 48 hours post stent placement. New blood cultures were drawn which were showing no growth. He remained on IV antibiotics until today and then transitioned to oral Levofloxacin. The past 24 hours he has been fever free and is feeling better. He did have a bump in his LFT's and a Hepatitis panel was drawn which was negative. We also got an US of his abdomen to check liver and his gallbladder. Patient denies any S/S of cholecystitis however we will watch the results of his US and will call if there is any concerns in regards to his imaging today. He is stable for discharge at this time. He will need to follow up with Urology in 2 weeks. Final diagnosis: Sepsis, acute pyelonephrosis, right ureteral calculus Status at Discharge Cognitive/behavioral status at discharge: Alert oriented x4 Functional status at discharge: independent ambulation Overall status at discharge: patient is progressing back to baseline Time Spent with Patient Time attestation: Total time spent providing and/or coordinating discharge services: Time spent: Greater than 30 minutes Exam Narrative: General: Acutely ill appearing Cardiac: Normal S1 and S2. RRR, No murmur, gallops or friction rubs, peripheral pulses intact. Respiratory: Lungs clear to auscultation, no adventitious lung sounds, currently on room air Gastrointestinal: soft, non-distended, non-tender, normoactive bowel sounds. : Mild pain with urination, voiding without difficulty Neuro: Alert and oriented x4 DS: Data Data Completed and Pending Completed studies during hospitalization: Abdomen pelvis CT Retrograde pyelogram Abdomen x-ray Venous Doppler study Chest abdomen pelvis CT Abdomen x-ray Abdomen ultrasound Pending studies at discharge: Urine and blood culture Labs on day of discharge: Labs from last 24 hours 11/17/23 11/17/23 06:37 06:11 WBC 7.0 7.8 RBC 4.28 L 4.37 L Hgb 13.2 L 13.5 L Hct 39.8 L 40.5 L MCV 93.0 92.7 MCH 30.8 30.9 MCHC 33.2 33.3 RDW 14.4 14.3 Plt Count 168 155 MPV 11.6 H 12.0 H Immature Gran % (Auto) 1.9 H Neut % (Auto) 49.2 Lymph % (Auto) 19.8 [place] % (Auto) 22.8 H Eos % (Auto) 5.7 H Baso % (Auto) 0.6 Lymph # (Auto) 1.54 [place] # (Auto) 1.8 H Eos # (Auto) 0.4 H Baso # (Auto) 0.1 Abs Immat Gran (auto) 0.15 H Absolute Neuts (auto) 3.8 Absolute Nucleated RBC 0.000 Nucleated RBC % 0.0 Platelet Estimate Adequate Schistocytes None seen Sodium 136 L 136 L Potassium 3.8 4.3 Chloride 104 103 Carbon Dioxide 24 24 Anion Gap 8 9 BUN 19 20 D Creatinine 0.90 1.10 Estim Creat Clear Calc 98 81 Estimated GFR > 60 > 60 Glucose 105 97 Calcium 8.1 L 8.0 L Total Bilirubin 0.4 0.4 AST 93 H 92 H ALT 120 H 123 H Alkaline Phosphatase 109 114 Total Protein 6.0 L 6.0 L Albumin 3.0 L 3.1 L Hepatitis A IgM Ab Negative Hep Bs Antigen Negative Hep B Core IgM Ab Negative Hepatitis C Ab Screen Negative Preliminary micro results at discharge 11/15/23 08:43 Blood Culture - Preliminary Blood 11/15/23 08:32 Blood Culture - Preliminary Blood Procedures/Treatments: Cystoscopy, right retrograde pyelogram, right ureteral stent placement Discharge Plan Discharge Attending physician on discharge: Andrea Felton Consulting providers: Timbo Cruz Discharging Clinician: Di Vasquez Anticipated Discharge Date/Time: 11/17/23 11:51 Patient Disposition: Home, Self-Care Activity: as tolerated Diet: as tolerated Discharge Instructions: * Make appointment with Urology within the next 2 weeks for follow-up on your kidney stones * Your liver enzymes were elevated this admission we obtained an Ultrasound of your abdomen. If there is anything concerning we will call you with results. * Continue taking your antibiotics even if you are feeling better. Finish the course * If you should experience any chest pain, shortness of breath, temps >100.4 or any other worrisome symptoms please follow up with your PCP come back to the hospital * Take full dose of magnesium citrate today. If it does not produce a significant bowel movement get your refill and repeat. If you still have issues with constipation follow up with primary care doctor. Patient Instructions: Antibiotic Form, Levofloxacin (By mouth), Magnesium Citrate (By mouth), How to Stop Smoking (GEN), Constipation (DC), Kidney Stones (DC), Kidney Infection (DC), Sepsis (DC) Patient Language: Divehi Stand Alone Forms: General Discharge Information, Work/School Release IP Follow-up/Referrals: Timbo Cruz MD [Physician] - 2 Weeks Marck Thompson MD [Primary Care Provider] - 1 Week Discharge Medications: New hydrocodone-acetaminophen 5-325 mg Tablet 1 tablet PO Q4H PRN (Reason: Pain Rated 4-6) Qty: 30 0RF phenazopyridine 100 mg Tablet 200 mg PO TIDWM Qty: 50 0RF levofloxacin 750 mg tablet 750 mg PO DAILY Qty: 10 0RF magnesium citrate [OneLAX Magnesium Citrate] Solution 300 ml PO ONCE Qty: 296 1RF Rx Instructions: as a single dose Continued trazodone 50 mg tablet See Rx Instructions .ROUTE .COMPLEX Rx Instructions: take 1-3 tablets at bedtime Date of admission: 11/13/23 04:42 Primary Care Provider: Marck Thompson Admitting Provider: Kyra Miller Attending physician on admission: Di Vasquez Condition: Improved Quality VTE Prophylaxis VTE prophylaxis: mechanical ordered
== END 2023-11-17 15:15 | disposition home or self-care (01) | DRG 854 ==
LOC: ANHED 04:45 → ANH3MEDSUR 05:11
PROVIDERS: Internal Medicine; Physician Assistant; Urology; Admitting Provider Internal Medicine; Emergency Provider Emergency Medicine; PCP Emergency Medicine; Visit Provider Nurse Practitioner Acute Care
PROC: 0T768DZ Dilation of Right Ureter with Intraluminal Device, Via Natural or Artificial Opening Endoscopic (ICD-10-PCS; CPT 52352; principal; 2023-11-13 07:00)
DX: A41.59 Other Gram-negative sepsis (principal); F10.939 Alcohol use, unspecified with withdrawal, unspecified; N13.6 Pyonephrosis; B96.4 Proteus (mirabilis) (morganii) as the cause of diseases classified elsewhere; K59.00 Constipation, unspecified
CPT/HCPCS: 36415; 71260; 74018; 74177; 74420; 76705; 80053; 80074; 81001; 82948; 83690; 83735; 84132; 85025; 85027; 85055; 87040; 87077; 87086; 87088; 87186; 93005; 93971; 96365; 96375; 96376; 99285; A9270; C1758; C1769; C2617; J0330; J0690; J0696; J1100; J1171; J1741; J1956; J2003; J2250; J2270; J2405; J2704; J3010; J3475; J7030; J7120; Q9966; Q9967

== ENCOUNTER 2023-12-05 02:12 | Day surgery (SDC) | payer OTHER, SELFPAY ==
[2023-12-01 09:17] VITALS: BMI 28.0
--- NOTE | 2023-12-01 09:23 | PC.NURSE ---
Report to the Outpatient Waiting Room, entrance under the green pavilion located off [facility], at time _0930_ on date _[id number]_. Planned Procedure Time: _1130_. Time changes happen often and if your time is changed the preop area will call you the afternoon before. - You and your visitor will be asked to self-screen and do not enter if you have any COVID symptoms. - A mask is optional within the hospital at this time. Patients may have clear liquids (water, carbonated beverages, clear teas, apple juice) until 3 hours prior to surgery with a maximum of 20 ounces. - No food from midnight until time of surgery Take the following medications with a SIP of water the morning of surgery: ___None DO NOT STOP ANY OF YOUR OTHER PRESCRIPTION MEDICATIONS PRIOR TO SURGERY ?EXCEPT THE FOLLOWING Medications to discontinue per physician None Date to take last dose Please no make-up, nail yemeni, hairspray, perfume, deodorant, or body powder the day of surgery. No jewelry (including any body piercings) or valuables the day of surgery, leave them at home. Please take a shower or bath the night before, or the morning of, surgery with an antibacterial soap. Wear comfortable, loose fitting clothing. - Jewelry must be removed prior to entering the operating room. Rings and piercings that are not removed may be cut off. - The hospital will not accept responsibility for valuables. - Please leave all valuables, including medications, at home the day of surgery. If you are going home after surgery, a licensed entry driver operator must drive you home. - NO public transportation without another adult if you receive anesthesia. - We recommend that an adult stay with you for 24 hours following discharge. - We also recommend that you do not drive, make important decision, drink alcoholic beverages, or take any drugs that were not prescribed by your health care provider for at least 24 hours after your discharge time. Follow any additional instructions given to you from your surgeon. If you or anyone in your household have experienced Covid symptoms in the past week, please notify your surgeon or the nurse liaison at the phone number below for possible testing. Telephone instructions given to __Mike__and asked if any additional questions and then verbalized understanding. Patient advised to call surgeon office or pre surgery nurse liaison [phone] if any additional questions.
[2023-12-05] VITALS (7 sets, daily range): BP systolic 120–144; BP diastolic 45–95; PULSE 66–90; RESP 12–20; TEMP 36.2–36.5; O2SAT 95–100
--- NOTE | ~2023-12-05 | XR_ITS ---
EXAMINATION: XR retrograde pyelo w/stent RT DATE: 12/05/2023 12:36 INDICATION: Right retrograde ureteral stent exchange. TECHNIQUE: 7 fluoroscopic images of the abdomen and pelvis were obtained during procedure performed b y 12/05/2023. Radiologist was not present for the imaging or procedure. The amount of fluoroscopy time used during this procedure was 0.3 minutes. COMPARISON: CT dated 11/15/2023 FINDINGS: Initial image demonstrates a left intraureteral stent with loops formed over the region of the left r enal pelvis. Subsequent images demonstrate retrograde catheter and wire advancement through the right ureter to the left renal collecting system which is subsequently opacified by injecting contrast wit h no significant hydronephrosis. Final image demonstrates placement of a new left internal stent with loops formed in the left renal pelvis. IMPRESSION: 1. Fluoroscopy utilized during left internal ureteral stent exchange with proximal loop formed in the left renal pelvis on the final image. See procedure note for further detail. Reviewed, dictated and finalized at location A. IMPRESSION: 1. Fluoroscopy utilized during left internal ureteral stent exchange with proxi mal loop formed in the left renal pelvis on the final image. See procedure note for further detail.
--- NOTE | 2023-12-05 09:23 | WPDHPUPDATE1 ---
History and Physical Update Update Date/Time: 12/05/23 09:23 History and Physical has been reviewed, including an updated exam of the patient. There are NO changes in the patient's condition. Risks, benefits, and alternatives have been discussed and questions answered. Patient agrees to proceed with procedure. Proceed with cystoscopy, right retrograde, steerable ureteroscopy with laser, stent exchange
[2023-12-05] MEDS: LACTATED RINGERS 1,000 ML 30 ML IV CONT ×2 (11:15→13:15)
--- NOTE | 2023-12-05 11:29 | P.PNAN_ITS ---
Anes - Initial Pre Proc Eval Procedure: Operation Date: 12/05/23 10:45 Proposed Procedures p Cystoscopy Right Retrograde Pyelogram, Right Ureteroscopy with Holmium Laser, Right Stent Exchange - Timbo Cruz MD Date/Time: 12/05/23 11:29 Surgeon: Timbo Cruz MD Pre Op Diagnosis: Rt Ureteral Stone Patient Data Age: 43 Gender: M Height: 1.78 m Weight: 89 kg Last Vital Signs Temp 97.2 F L 12/05/23 10:00 Pulse 87 12/05/23 10:00 Resp 14 12/05/23 10:00 BP 144/94 H 12/05/23 10:00 Pulse Ox 98 12/05/23 10:00 O2 Del Method Room Air 12/05/23 10:00 Allergies Allergy/AdvReac Type Severity Reaction Status Date / Time propoxyphene AdvReac Severe Nausea and Verified 12/05/23 11:16 [From Darvocet-N] Vomiting meperidine AdvReac Mild Nausea and Verified 12/05/23 11:16 Vomiting Home Medications Medication Instructions Recorded Confirmed Type trazodone 50 mg tablet See Rx Instructions .Route .COMPLEX 11/16/23 12/01/23 History Patient hx anesthesia problems: none Family hx anesthesia problems: none Results Review: All pre-operative results and documents have been reviewed as part of the pre- operative evaluation. [facility] Past Medical History Medical History Kidney stone Torsion, testicular Surgical History Surgical History H/O hernia repair History of intestinal surgery Family History Family History Mother , of Liver failure Liver failure Father , work accident No problems noted. Social History Social History Social History: Lives with Smoking packs per day: 0.5 Smoking cigarettes per day: 10.0 Years smoked: 10 Smoking pack-years: 5.00 Smoking status: Current every day smoker Tobacco type: cigarettes Alcohol intake: current Drinks per week: 2 Alcohol use details: Drinks beer Substance use: never Substance use type: does not use Do You Feel Safe in your Home?: Yes Lack of Transportation: No Lack of Food: Never True Current Housing: I Have Housing Concerned About Future Housing: No Difficulty Paying Gas/Electric Bills: No Difficulty Paying for Meds: No Currently Unemployed: No Education: Trade/Vocational Certificate Difficulty w/ Childcare or Family Care: No Living arrangements: with family Spiritual care concerns: No Anes - Eval Final PreProcedure Day of Procedure 12/05/23 11:29 Patient weight: overweight Heart: regular rate and rhythm Lungs: clear to auscultation Airway: Mallampati scale class II Neurological: alert and oriented Last oral intake: >/= 8 hours ASA classification: II Emergent: no Anesthetic plan: proceed Anesthesia type and monitoring: general LMA and standard monitoring Results Review: All pre-operative results and documents have been reviewed as part of the pre- operative evaluation. Pt ex smoker, quit 2022, approx 10 pack years. Informed Consent: The patient's anesthetic plan and its attendant risks and benefits were discussed with the patient/family/POA. Questions were solicited and answers provided to the satisfaction of the patient/family/POA.
[2023-12-05] MEDS: ceFAZolin 2 GM/D5W 50 ML 2 GM/50 ML BAG IVPB (11:31)
[2023-12-05] MEDS: LIDOCAINE HCL 2% GEL UROJET 10 ML PKG MUCOUS MEM (11:42)
--- NOTE | 2023-12-05 12:35 | P.OP_ITS ---
Procedure Note - Detailed Date of Procedure 12/05/23 Pre-op Diagnosis Rt upj calculus 1.5 cm Post-op Diagnosis Same Procedure Performed Sure procedure with ureteroscopy CVAC- irrigation /aspiration of kidney with laser, stent exchange. [id number], [id number], [id number], [id number], [id number] Surgeon Timbo Cruz MD Anesthesia General Description of Procedure Patient was taken to the operative suite correctly identified. Once anesthesia was obtained was placed in dorsal lithotomy position and prepped and draped usual sterile fashion. Twenty-two Tunisian scope was inserted into the urethra under direct vision. The prior stent was grasped brought out the meatus. A Sensor wire was inserted. A 2nd wire was also placed. Ureteral access sheath was then placed in position with the tip 1-2 cm distal to the UPJ. A single use disposable CVAC aspiration ureteral scope was used to inspect the full collecting system to identify the stone requiring lithotripsy and/or steerable vacuum extraction. A laser fiber was inserted into the laser bridge and the fiber/bridge was inserted into the system. Stone was broken into numerous small fragments and dusted. The full collecting system was surveyed with the single use CVAC ureteral scop. Exhaustive steerable vacuum aspiration was performed in the upper and lower poles. Continues fluid irrigation was used to increase fluid flow to mobilize the stones and intermittent vacuum aspiration. Fluid outflow was monitored to confirm Effluent contained stone fragments. Upon completion of vacuum aspiration of the primary stone fragments the full colectomy system was navigated irrigation/VAC continue to collect fragments moving through the collecting system. This was done until no further fragments were visible. The full collecting system was surveyed with the CVAC ureteroscope and there were no clinically significant residual fragments seen. There was no injury or significant bleeding. At this point a pyelogram was performed. A 4.8 Tunisian contour stent was then placed with the proximal end coiled in the renal pelvis and the distal end in the bladder. 2% viscous lidocaine was inserted into the urethra patient is taken recovery stable condition. He will follow-up in a week's time for stent removal. This completes dictation. Please send a copy of op note to my office. Estimated Blood Loss 0 Drains Yes Packing No Pathology Yes Complications No immediate complications Condition Stable Disposition PACU
[2023-12-05] MEDS: fentaNYL CITRATE INJ (*CRX) 100 MCG/2 ML VIAL 25 MCG IV PUSH ×8 (12:42→13:11)
[2023-12-05] MEDS: KETOROLAC 15 MG/ML VIAL (*BKC) IV PUSH (13:39)
[2023-12-05] MEDS: oxyCODONE HCL (*CRX) 5 MG TAB IR PO (13:39)
[2023-12-05] MEDS: oxyBUTYnin CHLORIDE 5 MG TABLET PO (14:10)
[2023-12-05] MEDS: PHENAZOPYRIDINE HCL 100 MG TABLET 200 MG PO (14:10)
--- NOTE | 2023-12-05 14:33 | SUR.PHASEII ---
PT DISCHARGED HOME WITH . PT HAS BEEN COMPLAINING OF DISCOMFORT, GAVE SEVERAL MEDICATIONS PER DR WHITE. DR WHITE CAME AND TALKED WITH PT AND REASSURED HIM THAT EVERYTHING WAS OK.
== END 2023-12-05 14:20 | disposition home or self-care (01) ==
PROVIDERS: PCP Emergency Medicine; Visit Provider Urology
PROC: (CPT 52352; principal; 2023-12-05 10:45)
DX: N20.1 Calculus of ureter (principal); F17.210 Nicotine dependence, cigarettes, uncomplicated
CPT/HCPCS: C9761; 74420; 82365; 88300; A9270; C1769; C2617; J0690; J1100; J1885; J2250; J2405; J2704; J3010; J7120

== ENCOUNTER 2024-02-29 10:43 | Emergency (ER) | payer OTHER, SELFPAY ==
[2024-02-29 10:53] VITALS: BP 145/93; PULSE 89; RESP 16; TEMP 36.4; O2SAT 99
--- NOTE | 2024-02-29 11:27 | ED_ITS ---
HPI - General Adult General Chief complaint: Unspecified Stated complaint: hemorrhoid,left shoulder blade pain work note Time Seen by Provider: 02/29/24 11:10 Source: patient Mode of arrival: ambulatory Limitations: no limitations History of Present Illness HPI narrative: Gatito is a 43-year-old male patient presenting to the clinic today with complaints a hemorrhoid that is tender. He denies any blood when wiping. States that he has had hemorrhoids removed in the past. Has been trying preparation H without relief. Is requesting a stronger hemorrhoid cream. States he does suffer from constipation. Related Data Home Medications Medication Instructions Recorded Confirmed trazodone 50 mg tablet See Rx Instructions .Route .COMPLEX 11/16/23 02/29/24 Allergies Allergy/AdvReac Type Severity Reaction Status Date / Time propoxyphene AdvReac Severe Nausea and Verified 02/29/24 10:57 [From Dargermant-N] Vomiting meperidine AdvReac Mild Nausea and Verified 02/29/24 10:57 Vomiting Review of Systems Review of Systems: Pertinent positives per HPI. Patient denies any fever, chills, rash, headache, visual changes, dizziness, cough, runny nose, sore throat, shortness of breath, chest pain, palpitations, nausea, vomiting, diarrhea, constipation, abdominal pain, or any urinary issues. [facility] Past Medical History Medical History Kidney stone Torsion, testicular Surgical History Surgical History H/O hernia repair History of intestinal surgery Family History Family History Mother , of Liver failure Liver failure Father , work accident No problems noted. Social History Social History Social History: Lives with Smoking packs per day: 0.5 Smoking cigarettes per day: 10.0 Years smoked: 10 Smoking pack-years: 5.00 Smoking status: Current every day smoker Tobacco type: cigarettes Alcohol intake: current Drinks per week: 2 Alcohol use details: Drinks beer Substance use: never Substance use type: does not use Do You Feel Safe in your Home?: Yes Lack of Transportation: No Lack of Food: Never True Current Housing: I Have Housing Concerned About Future Housing: No Difficulty Paying Gas/Electric Bills: No Difficulty Paying for Meds: No Currently Unemployed: No Education: Trade/Vocational Certificate Difficulty w/ Childcare or Family Care: No Living arrangements: with family Spiritual care concerns: No Comments At the time of my signature, I reviewed and agree with the nursing past medical, surgical, social, and family history. There is no relevant family history pertinent to the patient complaint. Exam Narrative: General: Well-developed, well nourished, in no apparent distress. Head: Normocephalic, atraumatic. Cardio: Regular rate and rhythm, s1 and s2 normal, no murmur appreciated. Resp: Clear to auscultation bilaterally, no rhonchi, rales, wheezing or rubs. Abdomen: Soft, pliable, bowel sounds present in all quadrants, non-tender to palpation, no organomegly, no CVAT tenderness. Rectal: External hemorrhoid noted at 6:00-nonthrombosed, no bleeding noted, tender to palpation Course Course Emergency Course: Portions of this record may have been created with voice recognition software. Level of Care: Express Care Visit Vital Signs Vital signs: Vital Signs Temperature 36.4 C L 02/29/24 10:53 Pulse Rate 89 02/29/24 10:53 Respiratory Rate 16 02/29/24 10:53 Blood Pressure 145/93 H 02/29/24 10:53 Pulse Oximetry 99 02/29/24 10:53 Oxygen Delivery Room Air 02/29/24 10:53 Temperature 36.4 C L 02/29/24 10:53 Pulse Rate 89 02/29/24 10:53 Respiratory Rate 16 02/29/24 10:53 Blood Pressure 145/93 H 02/29/24 10:53 Pulse Oximetry 99 02/29/24 10:53 Oxygen Delivery Room Air 02/29/24 10:53 Vital signs reviewed Medical Decision Making MDM Narrative Medical decision making narrative: At the time of visit patient is resting comfortably on the exam table. Patient appears to be nontoxic. Plan: I suspect patient has external nonthrombosed hemorrhoid. Prescription for Anusol cream was sent to the pharmacy. Supportive measures were discussed with the patient and they voiced understanding discharge instructions and agrees to treatment plan. Return precautions reviewed Differential Diagnosis Differential Diagnosis: External hemorrhoid, internal hemorrhoid, anal lesion, perirectal abscess Vital Signs Vital Signs: Vital Signs Temperature 36.4 C L 02/29/24 10:53 Pulse Rate 89 02/29/24 10:53 Respiratory Rate 16 02/29/24 10:53 Blood Pressure 145/93 H 02/29/24 10:53 Pulse Oximetry 99 02/29/24 10:53 Oxygen Delivery Room Air 02/29/24 10:53 Temperature 36.4 C L 02/29/24 10:53 Pulse Rate 89 02/29/24 10:53 Respiratory Rate 16 02/29/24 10:53 Blood Pressure 145/93 H 02/29/24 10:53 Pulse Oximetry 99 02/29/24 10:53 Oxygen Delivery Room Air 02/29/24 10:53 Discharge Plan Discharge Clinical Impression: Hemorrhoids, external Patient Disposition: Home, Self-Care Condition: Stable Instructions: Antibiotic Form, Hemorrhoids (ED) Additional Instructions: Apply Anusol cream as directed May take Tylenol/Motrin as needed for pain May perform Sitz baths Follow-up with your primary care doctor as scheduled Prescriptions: New hydrocortisone [Anusol-HC] 2.5 % cream with perineal applicator 1 applic RECTAL BID 7 Days Qty: 30 0RF No Action trazodone 50 mg tablet See Rx Instructions .ROUTE .COMPLEX Rx Instructions: take 1-3 tablets at bedtime Follow-up/Referrals: PHYSICIAN NOT ON STAFF,NONSTAFF [Primary Care Provider] - Stand Alone Forms: Work/School Release IP Time of Disposition: 11:28 Quality NIHSS Nursing Documentation ED NIHSS nursing documentation: reviewed/agree
== END 2024-02-29 11:34 | disposition home or self-care (01) ==
PROVIDERS: Emergency Provider Nurse Practitioner Family
DX: K64.9 Unspecified hemorrhoids (principal); F17.210 Nicotine dependence, cigarettes, uncomplicated
CPT/HCPCS: 99213; G0463

== ENCOUNTER 2024-05-23 12:34 | Emergency (ER) | payer OTHER, SELFPAY ==
--- NOTE | 2024-05-23 12:37 | ED_ITS ---
HPI - URI/Sore Throat General Chief Complaint: Upper Respiratory Infection Stated Complaint: covid exp chest tight,ERIC,nose dry,cough Time Seen by Provider: 05/23/24 12:37 Source: patient Mode of arrival: ambulatory Limitations: no limitations History of Present Illness HPI Narrative: Patient is a 43-year-old male who presents with 3 days of cough, dry nose, headache and chest congestion. Reports he exposed to COVID yesterday. Denies any fever, chills, nausea, vomiting, diarrhea. Has not taken anything for symptoms. Related Data Home Medications ?Medication ?Instructions ?Recorded ?Confirmed ?Last Taken ?Type trazodone 50 mg tablet See Rx Instructions .Route .COMPLEX 11/16/23 02/29/24 Unknown History Allergies Allergy/AdvReac Type Severity Reaction Status Date / Time propoxyphene (From AdvReac Severe Nausea and Verified 05/23/24 12:50 Darvocet-N) Vomiting meperidine AdvReac Mild Nausea and Verified 05/23/24 12:50 Vomiting Review of Systems Review of Systems: All systems reviewed & are unremarkable except as noted in HPI and below Constitutional: Constitutional: Denies body ache(s), Denies chills, Denies fatigue, Denies fever(s), Reports headache(s), Denies malaise and Denies weakness Eyes: Eyes: Denies blurry vision, Denies itchy eyes and Denies loss of vision ENT: Denies otalgia, Denies headache(s), Reports nasal congestion, Denies sinus pain and Denies sore throat Cardiovascular: Cardiovascular: Denies chest pain, Denies irregular heart rhythm and Denies dyspnea Respiratory: Respiratory: Reports chest congestion, Reports cough and Denies dyspnea Gastrointestinal: Gastrointestinal: Denies abdominal pain, Denies diarrhea, Denies nausea and Denies vomiting Musculoskeletal: Musculoskeletal: Denies back pain, Denies myalgias and Denies arthralgias Integumentary/Breasts: Skin/Breast: Denies pruritus and Denies rash Neurologic: Denies headache(s), Denies loss of vision and Denies weakness Psychiatric: Psychiatric: Reports no additional psychiatric complaints Endocrine: Endocrine: Denies fatigue Allergic/Immunologic: Allergic/Immunologic: Denies itchy eyes PMFSH Past Medical History Medical History Torsion, testicular Kidney stone Surgical History Surgical History History of intestinal surgery H/O hernia repair Family History Family History Mother , of Liver failure Liver failure Father , work accident No problems noted. Social History Social History Social History: Lives with Smoking packs per day: 0.5 Smoking cigarettes per day: 10.0 Years smoked: 10 Smoking pack-years: 5.00 Smoking status: Current every day smoker Tobacco type: cigarettes Alcohol intake: current Drinks per week: 2 Alcohol use details: Drinks beer Substance use: never Substance use type: does not use Do You Feel Safe in your Home?: Yes Lack of Transportation: No Lack of Food: Never True Current Housing: I Have Housing Concerned About Future Housing: No Difficulty Paying Gas/Electric Bills: No Difficulty Paying for Meds: No Currently Unemployed: No Education: Trade/Vocational Certificate Difficulty w/ Childcare or Family Care: No Living arrangements: with family Spiritual care concerns: No Comments At time of signature, agree with nursing past medical, surgical, social and family history. There is no relevant family history pertinent to the presenting complaint. Exam Const: General: cooperative, healthy appearing, comfortable, no acute distress and well nourished Nutritional Appearance: well nourished Orientation/consciousness: patient oriented x3 Limitations: no limitations HENMT: Head: normal to inspection, normocephalic and atraumatic Ears: hearing grossly normal bilaterally, external ears normal, TM's normal bilaterally, EAC's normal and no periauricular adenopathy Face/Nose/Sinus: Normal external nose present, Abnormal mucous membranes and turbinates present erythematous bilateral and diffuse, normal facial exam, sinuses nontender and face symmetric Face and sinus: normal facial exam, sinuses nontender and face symmetric Mouth: Yes Normal oral and palatal mucosa present, Yes lip normal, Yes tongue normal, Yes Normal salivary glands and ducts present, Yes oropharynx normal and Yes moist mucous membranes Teeth and gingiva: dentition normal Throat: posterior oropharynx normal, tonsils normal and uvula midline Eyes: General: appearance normal, both eyes and all related structures Alignment and Position: alignment normal and position normal Periorbital: periorbital findings normal Eyelids: eyelids normal Pupils: Equal, round and reactive pupils present Neck: Neck: normal visual inspection, full ROM, no lymphadenopathy and supple Chest: Chest palpation & inspection: normal inspection of the chest and normal palpation of entire chest wall Resp: Effort & Inspection: normal respiratory effort and able to speak in complete sentences Auscultation: clear to auscultation bilaterally, no crackles, no rales, no rhonchi and no wheezes Cardio: Rate: regular rate Rhythm: regular rhythm Heart sounds: S1 normal heart sound present and S2 normal heart sound present GI: Inspection: normal to inspection Skin: General skin exam: normal color and no rashes or lesions noted Neuro: General: patient oriented x3 and moves all extremities Cranial nerves: Yes Equal, round and reactive pupils present Speech: normal speech Gait exam (Neuro): Normal gait present Extrem: General: normal to inspection, full ROM and no edema Psych: Appearance: grossly normal and well kempt Mental Status: mental status grossly normal Speech and movement: Normal speech and movement present Affect: normal affect Attitude: cooperative Thought process: Normal thought process present Course Course Emergency Course: Discharge instructions reviewed with patient, as well as provided in writing per nursing staff. The instructions also include specific and strict return/GO TO THE ER as well as f/u information. All questions have been answered, and the patient deny any further questions with discharge and discharge plan. Portions of this record may have been created with voice recognition software Level of Care: Express Care Visit Vital Signs Vital signs: Vital Signs Temperature 37.1 C 05/23/24 12:43 Pulse Rate 79 05/23/24 12:43 Respiratory Rate 16 05/23/24 12:43 Blood Pressure 141/85 H 05/23/24 12:43 Pulse Oximetry 98 05/23/24 12:43 Oxygen Delivery Room Air 05/23/24 12:43 Temperature 37.1 C 05/23/24 12:43 Pulse Rate 79 05/23/24 12:43 Respiratory Rate 16 05/23/24 12:43 Blood Pressure 141/85 H 05/23/24 12:43 Pulse Oximetry 98 05/23/24 12:43 Oxygen Delivery Room Air 05/23/24 12:43 Reviewed MDM - URI/Sore Throat MDM Narrative Medical decision making narrative: Pt well hydrated appearing, in no respiratory distress, hemodynamically stable. Recommend supportive care. The patient is stable at time of discharge the clinical impression was discussed and the patient was given the opportunity to ask questions, which were addressed as completely as possible given the information available at present. Anticipatory guidance and return to care precautions were discussed and the importance of primary care follow-up was stressed and encouraged. The patient voiced understanding of the plan, indications to return, and the need for follow-up. Differential diagnosis considered: Gutierrez virus, strep pharyngitis, allergic rhinitis, upper respiratory tract infection, sinusitis, rhinosinusitis, nasopharyngitis. viral pharyngitis, otitis media, otitis externa, otitis effusion, foreign body, cerumen impaction, viral syndrome, and influenza.? Exam findings show no acute concerns or changes; patient is non-toxic appearing and is in no distress.? Patient is appropriate for outpatient treatment and follow- up.? Medical Records Attestation: I reviewed the patient's medical records. Lab Data Attestation: I reviewed the patient's lab results. Labs: Lab Results 05/23/24 Range/Units 13:04 POC Influenza A Ag Negative (Negative) POC Influenza B Ag Negative (Negative) POC SARS CoV-2 Ag Negative (Negative) Discharge Plan Discharge Clinical Impression: Upper respiratory infection Qualifiers: URI type: unspecified viral URI Qualified Code(s): J06.9 - Acute upper respiratory infection, unspecified Patient Disposition: Home, Self-Care Condition: Stable Instructions: Upper Respiratory Infection (ED) Additional Instructions: Your Covid and flu are both negative Your symptoms are likely due to a viral illness, which is not treated with antibiotics. Viral symptoms can be present for up to a few weeks. -Alternate Tylenol and Motrin per package directions for fever or pain. -Antihistamine medication such as Benadryl/Zyrtec at night and Claritin/Rosa during the day can help improve symptoms. -Use Flonase twice a day for 5 days then daily to help reduce the inflammation and dry up your sinuses. -You can also use Sudafed behind the pharmacy counter(12 or 24 hour). Be sure to drink plenty of water with these medications at least 8 ounces with every dose and it is important to drink 8 to 10 glasses of water per day. Water is a natural decongestant -Eat and drink things that are easy to swallow, like tea or soup, or popsicles. -Oral rinses such as: Salt water gargles and/or may use topical anesthetic (eg. Chloraseptic spray) or lozenges to relieve dryness or throat pain). -Frequent hand washing or hand production machine tender is one of the best ways to prevent spread of infection. -Using a vaporizer or humidifier at night will also help thin secretions and help with coughing up phlegm. -Follow up with primary care provider in 3-5 days if condition is not improving - For new or worsening symptoms go directly to the nearest ER Your blood pressure was elevated above 120/80 today at Urgent Care. This puts you above the threshold for follow up visit with a primary care provider. High blood pressure does not usually cause any symptoms, however it may lead to kidney failure, stroke, heart disease just to name a few if untreated . Many people are anxious when seeing a provider or nurse. As a result, you are not diagnosed with hypertension at this time unless your blood pressure is persistently high at two office visits at least one week apart. Some things that can help lower blood pressure are lifestyle modifications, such as light exercise, decreased salt in diet, and weight loss. It is important to follow up with a PCP about this within 1 week. Patient Language: Serbian Prescriptions: New benzonatate 100 mg capsule 100 mg PO BID PRN (Reason: cough) Qty: 14 0RF No Action trazodone 50 mg tablet See Rx Instructions .ROUTE .COMPLEX Rx Instructions: take 1-3 tablets at bedtime Follow-up/Referrals: PHYSICIAN,FILTER WASHER AND PRESSER [Primary Care Provider] - Marck Thompson MD [Physician] - 3 Days Stand Alone Forms: Work/School Release IP Time of Disposition: 13:37
[2024-05-23 12:43] VITALS: BP 141/85; PULSE 79; RESP 16; TEMP 37.1; O2SAT 98
[2024-05-23 13:06] LABS: EDCOVIDSCREEN Negative (Negative); EDINFLUASCREEN Negative (Negative); EDINFLUBSCREEN Negative (Negative)
== END 2024-05-23 13:42 | disposition home or self-care (01) ==
PROVIDERS: Emergency Provider Nurse Practitioner Family
DX: J06.9 Acute upper respiratory infection, unspecified (principal); Z20.822 Contact with and (suspected) exposure to COVID-19; F17.210 Nicotine dependence, cigarettes, uncomplicated
CPT/HCPCS: 87426; 87804; 99213; G0463

== ENCOUNTER 2024-08-05 17:48 | Emergency (ER) | payer OTHER, SELFPAY ==
[2024-08-05 17:58] VITALS: BP 135/73; PULSE 89; RESP 20; TEMP 36.6; O2SAT 99
--- NOTE | 2024-08-05 18:01 | ED_ITS ---
HPI - Skin/Abscess/Foreign Bdy General Chief complaint: Skin/Abscess/Foreign Body Stated complaint: Insect Bite Time Seen by Provider: 08/05/24 18:02 Source: patient, RN notes reviewed and old records reviewed Mode of arrival: ambulatory Limitations: no limitations History of Present Illness HPI narrative: 43-year-old male presents to the [facility] with complaints of redness, pain to the left groin. States he has also felt feverish. States that he has been shaving the pelvic area, uses the same razor. Patient was also concerned it might be a spider bite. Significant redness, warmth and swelling is noted, fluctuance to the center. Patient extremely anxious Onset (ago): day(s) (5) Treatments prior to arrival: none Related Data Home Medications ?Medication ?Instructions ?Recorded ?Confirmed ?Last Taken ?Type trazodone 50 mg tablet See Rx Instructions .Route .COMPLEX 11/16/23 02/29/24 Unknown History Allergies Allergy/AdvReac Type Severity Reaction Status Date / Time propoxyphene (From AdvReac Severe Nausea and Verified 05/23/24 12:50 Darvocet-N) Vomiting meperidine AdvReac Mild Nausea and Verified 05/23/24 12:50 Vomiting Review of Systems 2 Review of Systems: All systems reviewed & are unremarkable except as noted in HPI and below Constitutional: Constitutional: Reports no additional constitutional complaints ENT: Reports system reviewed and no additional complaints, except as documented Cardiovascular: Cardiovascular: Reports no additional cardiovascular complaints, Denies chest pain and Denies dyspnea Respiratory: Respiratory: Reports no additional respiratory complaints, Denies chest congestion, Denies cough and Denies dyspnea Musculoskeletal: Musculoskeletal: Reports no additional musculoskeletal complaints Integumentary/Breasts: Skin/Breast: Reports as per HPI [facility] Past Medical History Medical History Torsion, testicular Kidney stone Surgical History Surgical History History of intestinal surgery H/O hernia repair Family History Family History Mother , of Liver failure Liver failure Father , work accident No problems noted. Social History Social History (Reviewed 04/14/25 @ 18:29 by BLAKE Manuel Social History: Lives with Smoking packs per day: 0.5 Smoking cigarettes per day: 10.0 Years smoked: 10 Smoking pack-years: 5.00 Smoking status: Current every day smoker Tobacco type: cigarettes Alcohol intake: current Drinks per week: 2 Alcohol use details: Drinks beer Substance use: never Substance use type: does not use Do You Feel Safe in your Home?: Yes Lack of Transportation: No Lack of Food: Never True Current Housing: I Have Housing Concerned About Future Housing: No Difficulty Paying Gas/Electric Bills: No Difficulty Paying for Meds: No Currently Unemployed: No Education: Trade/Vocational Certificate Difficulty w/ Childcare or Family Care: No Living arrangements: with family Spiritual care concerns: No Comments At the time of my signature, I reviewed and agree with the nursing past medical, surgical, social, and family history. There is no relevant family history pertinent to the patient complaint. Exam 2 Const: General: cooperative, healthy appearing, no acute distress, well developed, alert, acute distress moderate (Pain), uncomfortable and well nourished Nutritional Appearance: well nourished O rientation/consciousness: patient oriented x3 Limitations: no limitations HENMT: Head: normal to inspection Eyes: General: appearance normal, both eyes and all related structures A lignment and Position: alignment normal Neck: Neck: normal visual inspection, full ROM, no lymphadenopathy and no meningeal signs Chest: Chest palpation & inspection: normal inspection of the chest Resp: Effort & Inspection: normal respiratory effort and able to speak in complete sentences Cardio: Rate: regular rate Skin: General skin exam: normal color and no rashes or lesions noted Full body images: 1. Redness, swelling, increased warmth, fluctuance Neuro: General: patient oriented x3, gait normal, moves all extremities and no meningeal signs Cognition (Neuro): normal cognition Speech: normal speech Gait exam (Neuro): Normal gait present Extrem: General: normal to inspection, full ROM, capillary refill normal and normal gait Psych: Appearance: grossly normal and well kempt Mental Status: mental status grossly normal Speech and movement: Normal speech and movement present and Clear speech present Affect: normal affect Attitude: cooperative Course Course Level of Care: Express Care Visit Vital Signs Vital signs: Vital Signs Temperature 97.8 F 08/05/24 17:58 Pulse Rate 89 08/05/24 17:58 Respiratory Rate 20 08/05/24 17:58 Blood Pressure 135/73 08/05/24 17:58 Pulse Oximetry 99 08/05/24 17:58 Oxygen Delivery Room Air 08/05/24 17:58 Temperature 97.8 F 08/05/24 17:58 Pulse Rate 89 08/05/24 17:58 Respiratory Rate 20 08/05/24 17:58 Blood Pressure 135/73 08/05/24 17:58 Pulse Oximetry 99 08/05/24 17:58 Oxygen Delivery Room Air 08/05/24 17:58 Reviewed Transfer Transfered to: [facility] Transportation: Other (POV) Transfer rationale: Patient with significant cellulitis, anxiety, concern for abscess to the pelvic area, sending for higher level of care Accepting physician: Spoke with [facility] - Skin/Abscess/Foreign Bdy [facility] Narrative Medical decision making narrative: Patient sitting extremely uncomfortable in the exam room. Patient with concerns for a spider bite, cellulitis to the left groin, periarea. Significant amount of redness, inflammation is noted. Probable abscess to the periarea most likely from ingrown hair however due to location sending for higher level of care. Patient appropriate for outpatient treatment and follow-up Discharge instructions reviewed with patient, as well as provided in writing per nursing staff. The instructions also include specific and strict return/GO TO THE ER as well as f/u information. All questions have been answered, and the patient deny any further questions with discharge and discharge plan. Some parts of this dictation were generated by voice recognition software and may contain typographical and/or grammatical inaccuracies. Differential Diagnosis Differential diagnosis: Likely abscess of skin or subcutaneous tissue, cellulitis and contact dermatitis Critical Care Time Critical Care Time Critical Care Time: No Discharge Plan Discharge Clinical Impression: Abscess or cellulitis of groin Patient Disposition: Acute Care Hospital Condition: Stable Patient Language: French Prescriptions: No Action benzonatate 100 mg capsule 100 mg PO BID PRN (Reason: cough) Qty: 14 0RF trazodone 50 mg tablet See Rx Instructions .ROUTE .COMPLEX Rx Instructions: take 1-3 tablets at bedtime Follow-up/Referrals: PHYSICIAN,SENIOR SERVICE TECHNICIAN [Primary Care Provider] -
== END 2024-08-05 18:23 | disposition short-term general hospital (02) ==
PROVIDERS: Emergency Provider Nurse Practitioner
DX: L02.214 Cutaneous abscess of groin (principal); F17.210 Nicotine dependence, cigarettes, uncomplicated
CPT/HCPCS: 99212; G0463

== ENCOUNTER 2024-08-05 18:42 | Emergency (ER) | payer OTHER, SELFPAY ==
--- NOTE | ~2024-08-05 | CT_ITS ---
CT abdomen pelvis w con Ordering provider: Mar Rocha MD History: 43 years Male with . abscess L groin; hx MRSA and torsion . Comparison: November 15, 2023 Technique: CT abdomen and pelvis with IV and without oral contrast. Automated exposure control and it erative reconstruction technique were employed. The dose-length product was 990.06 mGy-cm. 100 mL Omn ipaque 350 was given IV. Findings: VISUALIZED LOWER CHEST: Dependent atelectatic changes. UPPER ABDOMINAL ORGANS: Liver: Normal. Gallbladder: Normal. Spleen: Normal. Stomach/duodenum: Normal. Pancreas: Normal. Adrenals: Normal. Kidneys: Small cyst in the left kidney mid pole. PELVIC ORGANS: The bladder is normal. BOWEL AND MESENTERY: Colon: No evidence of diverticulitis.. Normal appendix. Small Bowel: Normal. No obstruction. Peritoneum/mesentery: No free air or free fluid. No mesenteric lymphadenopathy. RETROPERITONEUM: Normal aorta. No retroperitoneal lymphadenopathy. MUSCULOSKELETAL: Superficial soft tissues: Fat stranding is seen in the left inguinal area with enlarged lymph nodes. Possibility of small collection seen medially in the left upper thigh cannot be excluded although les s likely. Left epididymal cyst is seen Fat-containing umbilical hernia is noted. Otherwise, The super ficial soft tissues are normal. Bones: Normal spine. IMPRESSION: 1. No evidence of appendicitis, diverticulitis or intestinal obstruction. 2. Fat stranding in the left inguinal area with lymphadenopathy. Possibility of a tiny abscess in th e area under the skin medially in the left upper thigh cannot be excluded. This area measures 1.3 cm. Clinical correlation and follow-up advised. 3. Left epididymal cyst. Reviewed, dictated and finalized at location A. IMPRESSION: 1. No evidence of appendicitis, diverticulitis or intestinal obstruction. 2. Fat stranding in the left inguinal area with lymphadenopathy. Possibility o f a tiny abscess in the area under the skin medially in the left upper thigh ca nnot be excluded. This area measures 1.3 cm. Clinical correlation and follow-up advised. 3. Left epididymal cyst.
[2024-08-05 18:45] VITALS: BP 148/85; PULSE 93; RESP 16; TEMP 36.8; O2SAT 98
--- OUTSIDE RECORDS SUMMARY | 2024-08-05 18:45 | XMS_ITS | Clinical Summary ---
Author Organization [facility] Address [address] [place] [address] Care Team Providers Care Key Holder Name Role Phone Di Kwon Primary Care Provider + Allergies Active Allergy Reactions Criticality Noted Date Comments Propoxyphene-Acetaminophen Vomiting Low 1 Medications levoFLOXacin (LEVAQUIN) 500 mg tabletIndicatio ns:Urinary Tract/Genitouri nary Infection Take 1 tablet (500 mg total) by mouth daily Begin prescription tomorrow, June 21. 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) cultur e positive Perforated ulcer (HCC) Social History Tobacco Use Types Packs/Day Years Used Date Smoking Tobacco: Former Smokeless Tobacco: Never Alcohol Use Standard Drinks/Week Comments Not Currently 0 (1 standard drink = 0.6 oz pur e alcohol) Personal Safety Answer Date Recorded Getting School Help Needed Not on file 06/24 Sex and Gender Information Value Date Recorded Sex Assigned at Not on file 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 Gender Identity Not on file Sexual Orientation Not on file Obstetrics History Last Filed Vital Signs Vital Sign Reading Time Taken Comments Blood Pressure 121/68 07/11/2023 9:55 PM CDT Pulse 88 07/11/2023 9:55 PM CDT Temperature 36.5 C (97.7 F) 07/11/2023 7:33 PM CDT Respiratory Rate 20 07/11/2023 9:55 PM CDT Oxygen Saturation 94% 07/11/2023 9:55 PM CDT Inhaled Oxygen Concentration - - Weight 95.7 kg (210 lb 15.7 oz) 07/11/2023 7:33 PM CDT Height 175.3 cm (5' 9 ) 07/11/2023 7:33 PM CDT Body Mass Index 31.16 07/11/2023 7:33 PM CDT Plan of Treatment Health Maintenance Due Date Last Done Comments Depression Screening 1982 Hepatitis C Screening 1982 Varicella Vaccines (1 of 2 - 13+ 2-dose series) 08/25/1995 Hepatitis B Screening 2000 Regular Well Visit/Exam 18-64 2000 Influenza Vaccine (Season Ended) 2024 03/28/20 17 DTaP/Tdap/Td Vaccine (2 - Td or Tdap) 03/12/2026 03/12/2016 HPV Vaccines Aged Out No longer eligi ble based on patient's age to complete this topic Pneumococcal vaccine <65 Aged Out No longer eligible based on patient's age to complete this topic Insurance [employer] [place]ESS [place] CHO[place] [employer] COVENTRY ASO CMR PPO Care Teams Key Holder Relationship Specialty Start Date End Date Di Kwon PA [address] [place] [id number] PCP - General 06/20/19
--- OUTSIDE RECORDS SUMMARY | 2024-08-05 18:45 | XMS_ITS | Clinical Summary ---
Author Organization [facility] Address [address] [place] [address] Care Team Providers Care Audiology Director Name Role Phone Rosmery Burns metrology specialist Provider Karen plummer Source Comments [facility],non-owned Affiliates and Associated Physician Practices is amultiple site organization consisting of ambulatory clinics and hospital sitesin [place], [place], [place] and [place]. This disclosure is being madepursuant to the Care Everywhere program and may not contain all information available regarding this patient. Last updated 18.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 Gender Identity Not on file Sexual Orientation Not on file Last Filed Vital Signs Vital Sign Reading Time Taken Comments Blood Pressure 137/93 11/30/2021 3:45 PM CDT Pulse 76 11/30/2021 11:08 AM CDT Temperature 36.3 C (97.4 F) 11/30/2021 11:08 AM CDT Respiratory Rate 20 11/30/2021 11:08 AM CDT Oxygen Saturation 97% 11/30/2021 3:45 PM CDT Inhaled Oxygen Concentration - - Weight 92.6 kg (204 lb 1.6 oz) 11/30/2021 2:34 P M CDT Height 177.8 cm (5' 10 ) 11/30/2021 11:08 AM CDT Body Mass Index 29.29 11/30/2021 11:08 AM CDT Plan of Treatment Health Maintenance Due Date Last Done Comments LIPID TESTING 1982 HIV SCREENING 1997 HEPATITIS C SCREENING 08/19/2000 DTAP/TDAP/TD VACCINES (1 - Tdap) 2001 HEPATITIS B VACCINE (1 of 3 - 19+ 3-dose series) 2001 COVID-19 VACCINE (1 - 2023-2 5 season) 2023 DEPRESSION SCREENING 04/24/2024 INFLUENZA VACCINE (Season Ended) 2024 ZOSTER VACCINE (1 of 2) 2032 HIB VACCINE Aged Out No longer eligi ble based on patient's age to complete this topic HPV VACCINE Aged Out No longer eligi ble based on patient's age to complete this topic MENINGOCOCCAL (Group B) VACC INE SHARED DECISION-MAKING Aged Out No longer eligibl e based on patient's age to complete this topic MENINGOCOCCAL GROUPS A/C/Y/W VACCINE Aged Out No longer eligible b ased on patient's age to complete this topic PNEUMOCOCCAL VACCINE Aged Out No long er eligible based on patient's age to complete this topic Insurance SELF PAY NO INSURANCE Member Subscriber Plan / Payer (Ef fective for All Dates) Name:Gatito Bean Member ID:Not on file Relation to Subscriber:Not on file Name:GATITO BEAN Subscriber ID:Not on file (Home) Address: [address] [place] [id number] Payer ID:Not on file Group ID:Not on file Type:Self Pay Address: [place], [place] [employer] Care Teams Audiology Director Relationship Specialty Start Date End Date Rosmery Burns, RN PCP - General 04/28/17
--- OUTSIDE RECORDS SUMMARY | 2024-08-05 18:45 | XMS_ITS | Clinical Summary ---
Author Organization [facility] Address [address] [place] [id number] Care Team Providers Care Elevator Examiner And Adjuster Name Role Phone Di Kwon DRE Primary Care Provider [phone] Allergies Active Allergy Reactions Criticality Noted Date Comments Meperidine Rash,Nausea and Vomiting Low 03/12/2019 Propoxyphene Vomiting Low 04/19/2021 Medications doxycycline hyclate (VIBRAMYCIN) 100 MG capsule Take 1 capsule (100 mg total) by mouth 2 (two) times daily. Active ketorolac (TORADOL) 10 MG tablet Take 1 tablet (10 mg total) by mouth every 6 (six) hours as needed. 07/11/2023 Active Naproxen Sodium (ALEVE) 220 MG Cap Active Active Problems Problem Noted Date Diagnosed Date ADHD (attention deficit hyperactivity disorder) 04/03/2019 Primary insomnia 03/12/2019 Resolved Problems Problem Noted Date Diagnosed Date Resolved Date Anxiety 03/12/2019 07/19/2023 Current moderate episode of major depressive disorder without prior episode 03/12/2019 4 Immunizations Immunization Administration Dates Next Due Tdap (Generic) 03/12/2016 Family History Medical History Relation Comments Deafness Daughter 1 No Known Problems Daughter 2 No Known Problems Daughter 3 LIVER FAILURE Mother Relation Status Comments Daughter 1 Alive Daughter 2 Alive Daughter 3 Alive Father Mother Social History Tobacco Use Types Packs/Day Years Used Date Smoking Tobacco: Former Cigarettes 0.5 10 0 09/09/2008 - 09/09/2018 Smokeless Tobacco: Former Chew Alcohol Use Standard Drinks/Week Comments Yes 16.7 (1 standard drink = 0.6 oz pure alcohol) AUDIT-C Answer Date Recorded Frequency of Alcohol Consumption Never 03/12/2019 Average Number of Drinks Not on file 019 Frequency of Binge Drinking Not on file 02/22 PHQ-2 Answer Date Recorded Patient Health Questionnaire-2 Score 0 07/19/2023 Sex and Gender Information Value Date Recorded Sex Assigned at Not on file 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 Gender Identity Not on file Sexual Orientation Not on file Last Filed Vital Signs Vital Sign Reading Time Taken Comments Blood Pressure 132/86 07/19/2023 2:53 PM CDT Pulse 64 07/19/2023 2:23 PM CDT Temperature 37 C (98.6 F) 07/19/2023 2:23 PM CDT Respiratory Rate 16 07/19/2023 2:23 PM CDT Oxygen Saturation 98% 07/19/2023 2:23 PM CDT Inhaled Oxygen Concentration - - Weight 96.1 kg (211 lb 14.4 oz) 07/19/2023 2:23 PM CDT Height 175.3 cm (5' 9 ) 07/19/2023 2:23 PM CDT Body Mass Index 31.29 07/19/2023 2:23 PM CDT Plan of Treatment Health Maintenance Due Date Last Done Comments Annual Physical 1985 Hepatitis C 2000 Hepatitis B Vaccines (1 of 3 - 19+ 3-dose series) 2001 COVID-19 Vaccine (2023-2 5 season) 2023 PHQ-2 (Physician [place]) 04/24/2024 07/19/2023 DTaP, Tdap and Td Vaccines ( 2 - Td or Tdap) 03/12/2026 03/12/2016 HPV Vaccines Aged Out No longer eligi ble based on patient's age to complete this topic Meningococcal B Vaccine Aged Out No l onger eligible based on patient's age to complete this topic Meningococcal Vaccine Aged Out No wen david eligible based on patient's age to complete this topic Pneumococcal Vaccine: Pediat rics (0 to 5 Years) and At-Risk Patients (6 to 49 Years) Aged Out No longer eligi ble based on patient's age to complete this topic RSV Immunizations Under 20 Months Aged Out No longer eligible based on patient's age to complete this topic Insurance [employer] Care Teams Elevator Examiner And Adjuster Relationship Specialty Start Date End Date Di Kwon APNP [address] [place] [phone] PCP - General NURSE PRACTITIONER 03/12/19
--- OUTSIDE RECORDS SUMMARY | 2024-08-05 18:45 | XMS_ITS | Referral Summary ---
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
--- OUTSIDE RECORDS SUMMARY | 2024-08-05 21:03 | XMS_ITS | Referral Summary ---
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
--- OUTSIDE RECORDS SUMMARY | 2024-08-05 21:03 | XMS_ITS | Clinical Summary ---
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
--- OUTSIDE RECORDS SUMMARY | 2024-08-05 21:03 | XMS_ITS | Clinical Summary ---
Author Organization [facility] Address [address] [facility] [place] [address] Care Team Providers Care Security Public Safety Officer Name Role Phone Rosmery Burns insurance verification representative Provider Karen plummer Source Comments [facility],non-owned Affiliates and Associated Physician Practices is amultiple site organization consisting of ambulatory clinics and hospital sitesin [place], [place] and [place]. This disclosure is being madepursuant to the Care Everywhere program and may not contain all information available regarding this patient. 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
--- OUTSIDE RECORDS SUMMARY | 2024-08-05 21:03 | XMS_ITS | Clinical Summary ---
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
--- NOTE | 2024-08-05 21:07 | ED_ITS ---
HPI - Wound/Laceration General Chief Complaint: Wound/Laceration Stated Complaint: left groin pain Time Seen by Provider: 08/05/24 20:52 Source: patient and family () Mode of arrival: ambulatory Limitations: no limitations History of Present Illness HPI narrative: Patient presents with left groin pain. Was at urgent care earlier. States it started as what looks like a pimple 5 days ago but grew rapidly over the past 24 hours, substantially larger and more painful. It is red. states he has frequently been squeezing it and he denies this. Describes it as achy. History of testicular torsion in 2004, unknown if orchiopexy. A few months ago he had sepsis due to a kidney stone. Also reports a history of MRSA at left third digit. No fevers or chills. No rectal pain. No penile discharge. No scrotal pain. No hematuria or dysuria. Does shave groin. While in the ED, having pain in his back and radiating down right leg. Related Data Home Medications ?Medication ?Instructions ?Recorded ?Confirmed ?Last Taken ?Type trazodone 50 mg tablet See Rx Instructions .Route .COMPLEX 11/16/23 02/29/24 Unknown History Allergies Allergy/AdvReac Type Severity Reaction Status Date / Time propoxyphene (From AdvReac Severe Nausea and Verified 05/23/24 12:50 Darvocet-N) Vomiting meperidine AdvReac Mild Nausea and Verified 05/23/24 12:50 Vomiting PMFSH Past Medical History Medical History (Updated 08/07/24 @ 18:58 by Mar Rocha MD) History of MRSA infection Finger infection L third digit Torsion, testicular 2004 Kidney stone complicated by sepsis; October 2023 Surgical History Surgical History History of intestinal surgery H/O hernia repair Family History Family History Mother , of Liver failure Liver failure Father , work accident No problems noted. Social History Social History Social History: Smoking packs per day: 0.5 Smoking cigarettes per day: 10.0 Years smoked: 10 Smoking pack-years: 5.00 Smoking status: Current every day smoker Tobacco type: cigarettes Alcohol intake: current Drinks per week: 2 Alcohol use details: Drinks beer Substance use: never Substance use type: does not use Do You Feel Safe in your Home?: Yes Lack of Transportation: No Lack of Food: Never True Current Housing: I Have Housing Concerned About Future Housing: No Difficulty Paying Gas/Electric Bills: No Difficulty Paying for Meds: No Currently Unemployed: No Education: Trade/Vocational Certificate Difficulty w/ Childcare or Family Care: No Living arrangements: with family Additional living arrangements comments: Occupation/Education: occupation 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 HEAD: Normocephalic, atraumatic. EYES: Non injected, non icteric ENT: Nares clear, no rhinorrhea or epistaxis. NECK: Supple. CHEST: Speaking in full sentences. No respiratory distress. HEART: Regular rate and rhythm. . ABDOMEN: Soft, nondistended. : Normal external male genitalia. NO scrotal edema/pain. Abscess with overlying cellulitis and central area of white along left mons pubis, suprior to inguinal crease. No bullae/crepitus. EXTREMITIES: Normal range of motion. No lower extremity edema. SKIN: Warm, dry, no rash. NEURO: No focal deficits. Alert and oriented x3. PSYCH: Normal mood and affect. Course Vital Signs Vital signs: Vital Signs Temperature 98.3 F 08/05/24 18:45 Pulse Rate 93 08/05/24 18:45 Respiratory Rate 16 08/05/24 18:45 Blood Pressure 148/85 H 08/05/24 18:45 Pulse Oximetry 98 08/05/24 18:45 Oxygen Delivery Room Air 08/05/24 18:45 Temperature 98.3 F 08/05/24 18:45 Pulse Rate 86 08/06/24 01:33 Respiratory Rate 17 08/06/24 01:33 Blood Pressure 136/83 08/06/24 01:33 Pulse Oximetry 98 08/06/24 01:33 Oxygen Delivery Room Air 08/05/24 18:45 Procedures Abscess I/D groin - left mons pubis: Date of Incision: 08/06/24 Time of Incision: 00:15 Side (if applicable): left Sedation/analgesia: none Local Anesthetic: lidocaine 1% Amount of anesthesia used (mL): 4 Technique: incised with #11 blade Amount of fluid expressed (mL): 3 Irrigation: No Packing used?: none I&D Results: Pus and Blood MDM - Wound/Laceration MDM Narrative Medical decision making narrative: Patient presnts with pain in left groin. In the emergency department he is afebrile with vital signs notable for mild hypertension. Although appears to be a simple abscess, patient desribes the size growing very quickly over the last 24 hours. Pain seems out of proportion to what is on exam. Soft tissue ultrasound for groin had been ordered however due to limited personnel/staffing, unable to perform , only available for torsion rule outs and patient has no symptoms in his testicles/scrotum. Patient requesting viral swab. This is negative. Leukocytosis. Patient stating initial pain medicine is not helping. Additional dose is ordered before patient goes to CT scan. LRINEC Score 0 points. CRP and lactic acid are normal. I am informed that patient vomited while in CT scan. Zofran ordered. Patient still having pain at 11:50 p.m.. States he has a high tolerance to pain. Fentanyl ordered. Work up only showing abscess. I&D as above. Patient given first dose of dual antibiotics (two based on history of MRSA) and rest of course prescribed. Advised follow up and given return precautions. Provided a work note. Also prescribed OTC analgesics. Differential Diagnosis Differential diagnosis: Likely abscess (cellulitis) and other (necrotizing fasciitis/[place]) Lab Data Attestation: I reviewed the patient's lab results. Lab results narrative: Chemistry normal with normal renal function. CRP normal. Urinalysis normal. Trichomoniasis negative. 08/05/24 21:31 08/05/24 21:31 Labs: Lab Results 08/05/24 Range/Units 21:31 WBC 12.2 H (4.5-10.0) K/mm3 RBC 5.08 (4.6-6.20) M/mm3 Hgb 15.1 (14.0-18.0) g/dL Hct 46.8 (42.0-52.0) % MCV 92.1 (80-100) fl MCH 29.7 (26-34) pg MCHC 32.3 (32-36) g/dl RDW 14.5 (11.5-14.5) % Plt Count 251 (150-375) k/mm3 MPV 11.1 H (7.4-10.4) fl Immature Gran % (Auto) 0.3 (0-0.5) % Neut % (Auto) 66.4 (45.5-73.1) % Lymph % (Auto) 20.8 (18.3-44.2) % Giles % (Auto) 9.0 H (2.6-8.5) % Eos % (Auto) 3.2 (0-4.4) % Baso % (Auto) 0.3 (0.2-1.2) % Lymph # (Auto) 2.53 (0.9-3.2) K/mm3 Giles # (Auto) 1.1 H (0.1-0.6) K/mm3 Eos # (Auto) 0.4 H (0-0.3) K/mm3 Baso # (Auto) 0.0 (0.0-0.1) K/mm3 Abs Immat Gran (auto) 0.04 H (0.00-0.031) K/mm3 Absolute Neuts (auto) 8.1 H (1.3-6.7) K/mm3 Absolute Nucleated RBC 0.000 (0.0-0.012) K/mm3 Nucleated RBC % 0.0 (0.0-0.2) % Sodium 139 (137-145) mmol/L Potassium 3.9 (3.4-5.0) mmol/L Chloride 103 (98-107) mmol/L Carbon Dioxide 26 (22-30) mmol/L Anion Gap 10 (4-12) mmol/L BUN 18 (9-20) mg/dL Creatinine 0.72 (0.7-1.3) mg/dL Estim Creat Clear Calc 133 ml/min Estimated GFR > 60 (59 - ) Glucose 96 (65-110) mg/dL Lactic Acid 1.2 (0.7-2.0) mmol/L Calcium 9.0 (8.4-10.2) mg/dL Magnesium 1.9 (1.6-2.3) mg/dL Total Bilirubin 0.6 (0.2-1.3) mg/dL AST 27 (17-59) U/L ALT 25 (6-50) U/L Alkaline Phosphatase 80 (38-126) U/L C-Reactive Protein 1.0 (<1.0) mg/dL Total Protein 8.0 (6.3-8.2) g/dL Albumin 4.6 (3.5-5.1) g/dL Urine Color Yellow (Yellow) Urine Appearance Clear (Clear) Urine pH 6.0 (5.0-9.0) Ur Specific [place] 1.011 (1.001-1.035) Urine Protein Negative (Negative) mg/dL Urine Glucose (UA) Negative (Negative) mg/dL Urine Ketones Negative (Negative) mg/dL Ur Blood (Man) Negative (Negative) Urine Nitrate Negative (Negative) Urine Bilirubin Negative (Negative) Urine Urobilinogen 0.2 (<2.0) mg/dL Leukocyte Esterase Rfl Negative (Negative) SINDHU/UL C. trachomatis (PCR) Not detected (NOT DETECTE) Influenza A (RT-PCR) Negative (Negative) Influenza B (RT-PCR) Negative (Negative) N. gonorrhoeae (PCR) Not detected (NOT DETECTE) RSV (RT-PCR) Negative (Negative) SARS-CoV-2 RNA (RT-PCR) Negative (Negative) T. vaginalis (PCR) Not detected (NOT DETECTE) Imaging Data Radiologist's impression: IMPRESSION: 1. No evidence of appendicitis, diverticulitis or intestinal obstruction. 2. Fat stranding in the left inguinal area with lymphadenopathy. Possibility of a tiny abscess in the area under the skin medially in the left upper thigh cannot be excluded. This area measures 1.3 cm. Clinical correlation and follow- up advised. 3. Left epididymal cyst. Discharge Plan Discharge Clinical Impression: Leukocytosis, Cyst of epididymis, Abscess of groin, left, Encounter for incision and drainage procedure Patient Disposition: Home Condition: Stable Instructions: Antibiotic Form, Abscess (ED), Abscess Incision and Drainage (DC) Additional Instructions: An incision and drainage was performed. Keep the wound clean warm and dry. Warm soapy water is fine. Avoid hydrogen peroxide and Neosporin. It may/will continue to drain blood and pus over the next day or so. A wound culture was performed. You are being prescribed 2 antibiotics and received the 1st dose in the emergency department. Take the rest of the course. Follow-up with your upcoming primary care physician. Return to the emergency department with any new, worsening symptoms. Acetaminophen/Tylenol (maximum 4000 mg per day) is safe to take with NSAIDs (ibuprofen/Motrin) for pain relief. Patient Language: Tamazight Prescriptions: New cephalexin 500 mg capsule 500 mg PO Q8H 5 Days Qty: 15 0RF sulfamethoxazole-trimethoprim [Bactrim DS] 800-160 mg tablet 1 tablet PO Q12H 5 Days Qty: 10 0RF ibuprofen 600 mg tablet 600 mg PO TID PRN (Reason: pain) Qty: 30 0RF acetaminophen 500 mg capsule 1,000 mg PO Q6H PRN (Reason: pain) Qty: 30 0RF No Action benzonatate 100 mg capsule 100 mg PO BID PRN (Reason: cough) Qty: 14 0RF trazodone 50 mg tablet See Rx Instructions .ROUTE .COMPLEX Rx Instructions: take 1-3 tablets at bedtime Follow-up/Referrals: PHYSICIAN,ROOF SHINGLER [Primary Care Provider] - Kentrell,Curt Multani MD [Non-Staff] - (pending PCP ) Stand Alone Forms: Work/School Release IP Time of Disposition: 00:58
[2024-08-05] MEDS: HYDROmorphone HCL INJ (*CRX) 1 MG/ML SYR 0.5 MG IV PUSH (21:36)
[2024-08-05 21:41] LABS: Basophils Percent Auto 0.3 % (0.2-1.2); Eosinophils Absolute Auto 0.4 K/mm3 (0-0.3); Eosinophils Percent Auto 3.2 % (0-4.4); Hematocrit 46.8 % (42.0-52.0); Hemoglobin 15.1 g/dL (14.0-18.0); Immature Granulocyte Absolute 0.04 K/mm3 (0.00-0.031); Immature Granulocyte Percent A 0.3 % (0-0.5); Lymphocytes Absolute Auto 2.53 K/mm3 (0.9-3.2); Lymphocytes Percent Auto 20.8 % (18.3-44.2); Mean Corpuscular HGB Conc 32.3 g/dl (32-36); Mean Corpuscular Hemoglobin 29.7 pg (26-34); Mean Corpuscular Volume 92.1 fl (80-100); Mean Platelet Volume 11.1 fl (7.4-10.4); Monocytes Absolute Auto 1.1 K/mm3 (0.1-0.6); Neutrophils Absolute Auto 8.1 K/mm3 (1.3-6.7); Neutrophils Percent Auto 66.4 % (45.5-73.1); Platelet Count Result 251 k/mm3 (150-375); Red Blood Count 5.08 M/mm3 (4.6-6.20); Red Cell Distribution Width 14.5 % (11.5-14.5); White Blood Count 12.2 K/mm3 (4.5-10.0)
[2024-08-05 21:44] LABS: Add Urine Microscopic? NO; Appearance Urine Clear (Clear); Bilirubin Urine Negative (Negative); Blood Urine Negative (Negative); Color Urine Yellow (Yellow); Glucose Urine UA Negative (Negative); Ketones Urine Negative (Negative); Leukocyte Esterase Ur Negative LEU/UL (Negative); Nitrate Urine Negative (Negative); Protein Urine Negative (Negative); Specific Grav Ur 1.011 (1.001-1.035); Urobilinogen Urine 0.2 mg/dL (<2.0)
[2024-08-05 21:45] VITALS: BP 136/85; PULSE 103; RESP 17; O2SAT 94
[2024-08-05 21:59] LABS: Lactic Acid Reflex 1.2 mmol/L (0.7-2.0)
[2024-08-05 22:00] LABS: Alanine Aminotransferase 25 U/L (6-50); Albumin Level 4.6 g/dL (3.5-5.1); Alkaline Phosphatase 80 U/L (38-126); Anion Gap 10 mmol/L (4-12); Aspartate Amino Transferase 27 U/L (17-59); Bilirubin,Total 0.6 mg/dL (0.2-1.3); Blood Urea Nitrogen 18 mg/dL (9-20); Carbon Dioxide 26 mmol/L (22-30); Chloride 103 mmol/L (98-107); Estimated CRCL calculation 133 ml/min; Estimated Glomerular Filt Rate > 60; Glucose 96 mg/dL (65-110); Magnesium 1.9 mg/dL (1.6-2.3); Potassium 3.9 mmol/L (3.4-5.0); Sodium 139 mmol/L (137-145)
[2024-08-05] MEDS: HYDROmorphone HCL INJ (*CRX) 1 MG/ML SYR IV PUSH (22:15)
[2024-08-05 22:20] LABS: Influenza A QL RT-PCR Negative (Negative); Influenza B QL RT-PCR Negative (Negative); RSV RNA, RT-PCR Negative (Negative); SARS-CoV-2 RNA PCR Negative (Negative)
[2024-08-05 22:28] VITALS: BP 130/84; PULSE 91; RESP 19; O2SAT 97
[2024-08-05 22:50] LABS: Trichomonas Vag PCR NOT DETECTED (NOT DETECTE)
[2024-08-05] MEDS: ONDANSETRON INJ 4 MG/2 ML VIAL IV PUSH (23:11)
[2024-08-05 23:13] LABS: Chlamydia trachomatis NOT DETECTED (NOT DETECTE); Neisseria gonorrhoeae PCR NOT DETECTED (NOT DETECTE)
[2024-08-06] MEDS: fentaNYL CITRATE INJ (*CRX) 100 MCG/2 ML VIAL 50 MCG IV PUSH (00:03)
[2024-08-06] MEDS: SULFAMETHOXAZOLE/TRIMETHOPRIM 800/160 MG DS TABLET 1 TAB PO (00:59)
[2024-08-06] MEDS: CEPHALEXIN 500 MG CAPSULE PO (00:59)
[2024-08-06] MEDS: KETOROLAC 15 MG/ML VIAL (*BKC) IV PUSH (01:13)
[2024-08-06 01:31] VITALS: BP 136/83; PULSE 86; RESP 17; O2SAT 98
[2024-08-06 01:33] VITALS: BP 136/83; PULSE 86; RESP 17; O2SAT 98
== END 2024-08-06 01:35 | disposition home or self-care (01) ==
PROVIDERS: Emergency Provider Student in an Organized Health Care Education/Training Program
DX: L02.214 Cutaneous abscess of groin (principal); N50.3 Cyst of epididymis; D72.829 Elevated white blood cell count, unspecified; F17.210 Nicotine dependence, cigarettes, uncomplicated; Z87.442 Personal history of urinary calculi; Z86.14 Personal history of Methicillin resistant Staphylococcus aureus infection
CPT/HCPCS: 10060; 36415; 74177; 80053; 81003; 83605; 83735; 85025; 86140; 87070; 87075; 87181; 87205; 87491; 87591; 87637; 87661; 96374; 96375; 96376; 99284; A9270; J1171; J1885; J2003; J2405; J3010; Q9967

== ENCOUNTER 2024-08-21 19:31 | Emergency (ER) | payer OTHER, SELFPAY ==
[2024-08-21] VITALS (14 sets, daily range): BP systolic 130–152; BP diastolic 76–99; PULSE 73–85; RESP 11–19; TEMP 36.8–37.1; O2SAT 94–99
--- NOTE | ~2024-08-21 | XR_ITS ---
XR ankle LT 2V Ordering provider: Julieth Noonan PA-C History: . left ankle pain, injury . Comparison: None. FINDINGS: BONES: Comminuted fracture of the lateral malleolus and distal fibula. Minimal widening of the medial aspect of the ankle joint is noted. JOINT SPACES: The ankle mortise is normal. SOFT TISSUES: Soft tissue swelling over the lateral malleolus. Calcaneal spur. IMPRESSION: Fracture of the lateral malleolus and distal left fibula. Reviewed, dictated and finalized at location A.
--- NOTE | ~2024-08-21 | CT_ITS ---
CT brain wo con Ordering provider: Julieth Noonan PA-C History: 43 years Male with . fall, head injury . Comparison: None. Technique: CT of the head without contrast. Radiation reduction technique utilized.The dose-length pr oduct was 605.33 mGy-cm. FINDINGS: BRAIN PARENCHYMA AND CSF SPACES: No midline shift, mass effect or hemorrhage. The brain parenchyma a nd CSF spaces are otherwise normal. VISUALIZED PARANASAL SINUSES: Well aerated. MASTOIDS: Well aerated. BONES: The bones appear intact. SOFT TISSUES: Visualized nasopharynx is normal. Superficial soft tissues are normal. IMPRESSION: No acute intracranial findings. Reviewed, dictated and finalized at location A.
--- NOTE | ~2024-08-21 | CT_ITS ---
CT cervical spine wo con Ordering provider: Julieth Noonan History: . fall, head injury . Comparison: None. Technique: CT of the cervical spine was performed without contrast. Sagittal and coronal reformatted images were also obtained and reviewed. Automated exposure control and iterative reconstruction lucia hnique were employed. The dose-length product was 445.21 mGy-cm. FINDINGS: VERTEBRAE: No subluxation or acute fracture. The occipital condyles are intact. Degenerative changes of the spine. DISC SPACES: Narrowing of the disc C3-C4, C4-C5, C5-C6 and C6-C7. Multilevel uncovertebral joint oste oarthritic changes. Narrowing of the foramina at the level of C4-C5, C5-C6 and C6-C7. PARASPINOUS SOFT TISSUES: Normal. IMPRESSION: No acute osseous abnormality cervical spine. Multilevel degenerative disc disease. Reviewed, dictated and finalized at location A.
--- NOTE | 2024-08-21 20:29 | ED_ITS ---
HPI - General Adult General Chief complaint: Extremity Injury, Lower Stated complaint: LEFT ANKLE DEFORMITY S/P FALL Time Seen by Provider: 08/21/24 20:11 History of Present Illness HPI narrative: Patient is a 43-year-old gentleman presents emergency department with chief complaint of left ankle pain. The patient reports that he was carrying his CT slipped and fell reports that he struck his head reports no loss of conscious reports he had about 3 beers today patient reports severe pain his left ankle Related Data Home Medications ?Medication ?Instructions ?Recorded ?Confirmed ?Last Taken ?Type trazodone 50 mg tablet See Rx Instructions .Route .COMPLEX 11/16/23 02/29/24 Unknown History Allergies Allergy/AdvReac Type Severity Reaction Status Date / Time propoxyphene (From AdvReac Severe Nausea and Verified 08/21/24 19:52 Darvocet-N) Vomiting meperidine AdvReac Mild Nausea and Verified 08/21/24 19:52 Vomiting Review of Systems Review of Systems: A 10 system review of systems was completed on the patient and is negative except for what is stated in the HPI. Nursing and ancillary documentation was reviewed. [facility] Past Medical History Medical History History of MRSA infection Finger infection L third digit Torsion, testicular 2004 Kidney stone complicated by sepsis; October 2023 Surgical History Surgical History History of intestinal surgery H/O hernia repair Family History Family History Mother , of Liver failure Liver failure Father , work accident No problems noted. Social History Social History Social History: Smoking packs per day: 0.5 Smoking cigarettes per day: 10.0 Years smoked: 10 Smoking pack-years: 5.00 Smoking status: Current every day smoker Tobacco type: cigarettes Alcohol intake: current Drinks per week: 2 Alcohol use details: Drinks beer Substance use: never Substance use type: does not use Do You Feel Safe in your Home?: Yes Lack of Transportation: No Lack of Food: Never True Current Housing: I Have Housing Concerned About Future Housing: No Difficulty Paying Gas/Electric Bills: No Difficulty Paying for Meds: No Currently Unemployed: No Education: Trade/Vocational Certificate Difficulty w/ Childcare or Family Care: No Living arrangements: with family Additional living arrangements comments: Occupation/Education: occupation 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 HEAD: Normocephalic, atraumatic. EYES: PERRLA and EOMI. ENT: Nares clear, no rhinorrhea or epistaxis. Mucous membranes moist. NECK: Supple. CHEST: Clear to auscultation. No respiratory distress. HEART: Regular rate and rhythm. No murmur heard. Normal peripheral pulses. ABDOMEN: Soft, nontender, nondistended, normal active bowel sounds. EXTREMITIES: Normal range of motion tenderness palpation left ankle. No edema. SKIN: Warm, dry, no rash. NEURO: No focal deficits. Alert and oriented x3. PSYCH: Normal mood and affect. Course Vital Signs Vital signs: Vital Signs Temperature 37.1 C 08/21/24 19:44 Pulse Rate 73 08/21/24 19:44 Respiratory Rate 11 L 08/21/24 19:44 Blood Pressure 143/79 H 08/21/24 19:44 Pulse Oximetry 96 08/21/24 19:44 Oxygen Delivery Room Air 08/21/24 19:44 Temperature 37.1 C 08/21/24 19:44 Pulse Rate 73 08/21/24 19:44 Respiratory Rate 11 L 08/21/24 19:44 Blood Pressure 143/79 H 08/21/24 19:44 Pulse Oximetry 96 08/21/24 19:44 Oxygen Delivery Room Air 08/21/24 19:44 Medical Decision Making Vital Signs Vital Signs: Vital Signs Temperature 37.1 C 08/21/24 19:44 Pulse Rate 73 08/21/24 19:44 Respiratory Rate 11 L 08/21/24 19:44 Blood Pressure 143/79 H 08/21/24 19:44 Pulse Oximetry 96 08/21/24 19:44 Oxygen Delivery Room Air 08/21/24 19:44 Temperature 37.1 C 08/21/24 19:44 Pulse Rate 73 08/21/24 19:44 Respiratory Rate 11 L 08/21/24 19:44 Blood Pressure 143/79 H 08/21/24 19:44 Pulse Oximetry 96 08/21/24 19:44 Oxygen Delivery Room Air 08/21/24 19:44 Discharge Plan Discharge Clinical Impression: Ankle fracture, left Patient Disposition: Home Condition: Stable Instructions: Antibiotic Form, Ankle Fracture (ED), Crutch Instructions (ED), Splint Care (ED), Ankle Stirrup Splint (ED) Patient Language: German Prescriptions: New hydrocodone-acetaminophen 5-325 mg tablet 1 tablet PO Q6H PRN (Reason: pain) 3 Days Qty: 12 0RF No Action benzonatate 100 mg capsule 100 mg PO BID PRN (Reason: cough) Qty: 14 0RF cephalexin 500 mg capsule 500 mg PO Q8H 5 Days Qty: 15 0RF sulfamethoxazole-trimethoprim [Bactrim DS] 800-160 mg tablet 1 tablet PO Q12H 5 Days Qty: 10 0RF ibuprofen 600 mg tablet 600 mg PO TID PRN (Reason: pain) Qty: 30 0RF acetaminophen 500 mg capsule 1,000 mg PO Q6H PRN (Reason: pain) Qty: 30 0RF trazodone 50 mg tablet See Rx Instructions .ROUTE .COMPLEX Rx Instructions: take 1-3 tablets at bedtime Follow-up/Referrals: PHYSICIAN,DIRECTOR OF EVENT SALES [Primary Care Provider] - Daniel Molina MD [Physician] - Natty Girard DO [Physician] - Time of Disposition: 22:19
--- OUTSIDE RECORDS SUMMARY | 2024-08-21 20:42 | XMS_ITS | Clinical Summary ---
Author Organization 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
--- OUTSIDE RECORDS SUMMARY | 2024-08-21 20:42 | XMS_ITS | Referral Summary ---
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
--- OUTSIDE RECORDS SUMMARY | 2024-08-21 20:42 | XMS_ITS | Clinical Summary ---
Author Organization [facility] Address [address] [place] [address] Care Team Providers Care Hogshead Hand Name Role Phone Rosmery Burns form building supervisor Provider Karen plummer Source Comments [facility],non-owned Affiliates and Associated Physician Practices is amultiple site organization consisting of ambulatory clinics and hospital sitesin [place], [place], [place] and [place]. This disclosure is being madepursuant to the Care Everywhere program and may not contain all information available regarding this patient. 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
--- OUTSIDE RECORDS SUMMARY | 2024-08-21 20:43 | XMS_ITS | Clinical Summary ---
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
[2024-08-21] MEDS: MORPHINE SULFATE (*CRX) 4 MG/ML INJ IV PUSH ×2 (20:45→21:13)
[2024-08-21] MEDS: KETOROLAC 15 MG/ML VIAL (*BKC) IV PUSH (21:13)
[2024-08-21] MEDS: HYDROmorphone HCL INJ (*CRX) 2 MG/ML VIAL 1 MG IV PUSH (22:06)
--- NOTE | 2024-08-21 23:01 | PC.NURSE ---
pt continually yelling at staff and telling fucking useless, why the fuck are you here. Security at bedside and pt wheeled to exit via pov.
== END 2024-08-21 23:07 | disposition home or self-care (01) ==
LOC: ANHED 20:41
PROVIDERS: Emergency Provider Emergency Medicine
DX: S82.62XA Displaced fracture of lateral malleolus of left fibula, initial encounter for closed fracture (principal); S82.832A Other fracture of upper and lower end of left fibula, initial encounter for closed fracture; F17.210 Nicotine dependence, cigarettes, uncomplicated; Z86.14 Personal history of Methicillin resistant Staphylococcus aureus infection; Z87.442 Personal history of urinary calculi; Z79.899 Other long term (current) drug therapy; M50.31 Other cervical disc degeneration, high cervical region; W01.0XXA Fall on same level from slipping, tripping and stumbling without subsequent striking against object, initial encounter
CPT/HCPCS: 29515; 70450; 72125; 73600; 96374; 96375; 99284; J1171; J1885; J2270

== ENCOUNTER 2024-08-28 11:22 | Outpatient (CLI) | payer OTHER, SELFPAY ==
--- NOTE | 2024-08-28 | ECG_ITS ---
Test Date: 2024-08-28 12:06:13 Measurements Intervals [place] Rate: 69 P: -1 [place]: 173 QRS: 24 QRSD: 104 T: 17 QT: 376 QTc: 405 Interpretive Statements SINUS RHYTHM INCOMPLETE RIGHT BUNDLE BRANCH BLOCK Compared to ECG 11/13/2023 06:10:20 NO SIGNIFICANT CHANGES Electronically Signed On 08-28-2024 14:16:53 CDT by Jessica Serna M.D.
[2024-08-28 12:06] LABS: Hemoglobin 14.6 g/dL (14.0-18.0); Mean Corpuscular HGB Conc 32.4 g/dl (32-36); Mean Corpuscular Volume 92.6 fl (80-100); Mean Platelet Volume 10.9 fl (7.4-10.4); Platelet Count Result 233 k/mm3 (150-375); Red Blood Count 4.86 M/mm3 (4.6-6.20); Red Cell Distribution Width 14.1 % (11.5-14.5); White Blood Count 11.1 K/mm3 (4.5-10.0)
--- OUTSIDE RECORDS SUMMARY | 2024-08-28 12:08 | XMS_ITS | Clinical Summary ---
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
--- OUTSIDE RECORDS SUMMARY | 2024-08-28 12:08 | XMS_ITS | Clinical Summary ---
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
--- OUTSIDE RECORDS SUMMARY | 2024-08-28 12:08 | XMS_ITS | Referral Summary ---
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
--- OUTSIDE RECORDS SUMMARY | 2024-08-28 12:08 | XMS_ITS | Clinical Summary ---
Author Organization [facility] Address [address] [facility] [place] [address] Care Team Providers Care Upsetter Name Role Phone Rosmery Burns clerical production worker Provider Karen plummer Source Comments [facility],non-owned Affiliates and Associated Physician Practices is amultiple site organization consisting of ambulatory clinics and hospital sitesin [place], [place], [place] and [place]. This disclosure is being madepursuant to the Care Everywhere program and may not contain all information available regarding this patient. 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
[2024-08-28 12:18] LABS: Alanine Aminotransferase 24 U/L (6-50); Albumin Level 4.6 g/dL (3.5-5.1); Alkaline Phosphatase 73 U/L (38-126); Anion Gap 10 mmol/L (4-12); Aspartate Amino Transferase 21 U/L (17-59); Bilirubin,Total 0.7 mg/dL (0.2-1.3); Blood Urea Nitrogen 20 mg/dL (9-20); Calcium 9.2 mg/dL (8.4-10.2); Carbon Dioxide 27 mmol/L (22-30); Chloride 100 mmol/L (98-107); Estimated Glomerular Filt Rate > 60; Glucose 115 mg/dL (65-110); Potassium 4.2 mmol/L (3.4-5.0); Sodium 137 mmol/L (137-145)
[2024-08-28 13:31] LABS: MRSA (PCR) DETECTED (NOT DETECTE)
== END 2024-08-28 11:23 | disposition home or self-care (01) ==
PROVIDERS: Visit Provider Orthopaedic Surgery
DX: Z01.818 Encounter for other preprocedural examination (principal)
CPT/HCPCS: 36415; 80053; 85027; 86140; 87641; 93005

== ENCOUNTER 2024-08-30 00:57 | Day surgery (SDC) | payer OTHER, SELFPAY ==
[2024-08-27 13:16] VITALS: BMI 29.5
--- NOTE | 2024-08-27 13:18 | PC.NURSE ---
Report to the Outpatient Waiting Room, entrance under the green pavilion located off [facility], at time _0600_ on date _[id number]_. Planned Procedure Time: _0730_.? Time changes happen often and if your time is changed the preop area will call you the afternoon before. - You and your visitor will be asked to self-screen and do not enter if you have any COVID symptoms. Please call surgeon if you need to reschedule. - A mask is optional within the hospital at this time. Patients may have clear liquids (water, carbonated beverages, clear teas, apple juice) until 3 hours prior to surgery with a maximum of 20 ounces. - No food from midnight until time of surgery and no smoking, or chewing tobacco (or any form of nicotine). No chewing gum, candy or mints. Take only the following medications with a SIP of water on the morning of surgery: __Hydrocodone or Acetaminophen as needed.___ DO NOT STOP ANY OF YOUR OTHER PRESCRIPTION MEDICATIONS PRIOR TO SURGERY EXCEPT THE FOLLOWING Hold all vitamins and supplements for 3 days per anesthesiologist. Medications to discontinue per physician Date to take last dose Please no make-up, nail argentine, hairspray, perfume, deodorant, or body powder the day of surgery.? No jewelry (including any body piercings) or valuables the day of surgery, leave them at home.? Please take a shower or bath the night before, or the morning of, surgery with an antibacterial soap.? Wear comfortable, loose fitting clothing.? - Jewelry must be removed prior to entering the operating room.? Rings and piercings that are not removed may be cut off. - The hospital will not accept responsibility for valuables.? - Please leave all valuables, including medications, at home the day of surgery. If you are going home after surgery, a licensed route delivery service driver must drive you home.? - NO public transportation without another adult if you receive anesthesia. - We recommend that an adult stay with you for 24 hours following discharge. - We also recommend that you do not drive, make important decision, drink alcoholic beverages, or take any drugs that were not prescribed by your health care provider for at least 24 hours after your discharge time. Follow any additional instructions given to you from your surgeon. Telephone instructions given to __Mike__and asked if any additional questions and then verbalized understanding. Patient advised to call surgeon office or pre surgery nurse liaison [phone] if any additional questions.
[2024-08-30] VITALS (14 sets, daily range): BP systolic 117–131; BP diastolic 74–95; PULSE 65–87; RESP 12–16; TEMP 36.4; O2SAT 92–98; BMI 31.4
--- NOTE | ~2024-08-30 | XR_ITS ---
EXAMINATION: XR surgery orthopedic DATE: 08/30/2024 08:53 INDICATION: ORIF left ankle fracture TECHNIQUE: 3 fluoroscopic images of the left ankle were obtained during procedure performed by Dr. Abner talamantes. Radiologist was not present for the imaging or procedure. The amount of fluoroscopy time used during this procedure was 0.6 minutes. Total DAP was 0.293 Gycm^2. COMPARISON: None. FINDINGS: Initial image demonstrates a nondisplaced oblique fracture of the distal metaphyseal region of the le ft fibula. This is subsequently fixed with a pair of interfragmentary screws and lateral plate and sc rews. Alignment post fixation appears near-anatomic with a congruent ankle mortise with normal joint spaces. No new fractures identified. IMPRESSION: 1. Fluoroscopy utilized during internal fixation of an oblique fracture of the distal left fibula whi ch remains in near-anatomic alignment. See procedure note for further detail. Reviewed, dictated and finalized at location A. IMPRESSION: 1. Fluoroscopy utilized during internal fixation of an oblique fracture of the distal left fibula which remains in near-anatomic alignment. See procedure note for further detail.
--- OUTSIDE RECORDS SUMMARY | 2024-08-30 01:00 | XMS_ITS | Clinical Summary ---
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
--- OUTSIDE RECORDS SUMMARY | 2024-08-30 01:00 | XMS_ITS | Clinical Summary ---
Author Organization [facility] Address [address] [place] [address] Care Team Providers Care [employer] Multimedia Sales Name Role Phone Rosmery Burns deputy harbormaster Provider Karen plummer Source Comments [facility],non-owned Affiliates and Associated Physician Practices is amultiple site organization consisting of ambulatory clinics and hospital sitesin [place], [place], [place] and [place]. This disclosure is being madepursuant to the Care Everywhere program and may not contain all information available regarding this patient. 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
--- OUTSIDE RECORDS SUMMARY | 2024-08-30 01:00 | XMS_ITS | Referral Summary ---
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
--- OUTSIDE RECORDS SUMMARY | 2024-08-30 01:00 | XMS_ITS | Clinical Summary ---
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
[2024-08-30] MEDS: KETOROLAC 15 MG/ML VIAL (*BKC) IV PUSH ×2 (07:00→12:08)
[2024-08-30] MEDS: ACETAMINOPHEN 500 MG TABLET 1000 MG PO (07:00)
--- NOTE | 2024-08-30 07:01 | WPDHPUPDATE1 ---
History and Physical Update Update Date/Time: 08/30/24 07:01 History and Physical has been reviewed, including an updated exam of the patient. There are NO changes in the patient's condition. Risks, benefits, and alternatives have been discussed and questions answered. Patient agrees to proceed with procedure. Left Ankle Open Reduction with Plate and Screw Fixation Risks include but are not limited to: infection, nerve injury, bleeding, DVT, PE, Malunion, nonunuion, hardware irritation requiring additional surgery, Post Traumatic arthritis. Patient has a higher risk of MRSA due to history of previous MRSA infections recently. He was given the option of closed treatment without surgery. He decided on surgery with hopeful outcome for decrease in probability of significant post traumatic arthritis.
--- NOTE | 2024-08-30 07:04 | PM.IMHP ---
H&P: HPI History of Present Illness Date/Time: 08/30/24 07:04 Chief Complaint: The patient sustained a left ankle fracture after slipping in his kitchen he presented to the emergency and I was care. No other injury PMFSH Past Medical History Medical History History of MRSA infection Finger infection L third digit Torsion, testicular 2005 Kidney stone complicated by sepsis; October 2023 Surgical History Surgical History History of intestinal surgery H/O hernia repair Family History Family History Mother , of Liver failure Liver failure Father , work accident No problems noted. Social History Social History Social History: Smoking packs per day: 0.5 Smoking cigarettes per day: 10.0 Years smoked: 10 Smoking pack-years: 5.00 Smoking status: Current every day smoker Tobacco type: cigarettes Additional smoking assessment comments: Down to 5 or 6 cigarettes a day Alcohol intake: current Drinks per week: 2 Alcohol use details: Drinks beer Substance use: never Substance use type: does not use Do You Feel Safe in your Home?: Yes Lack of Transportation: No Lack of Food: Never True Current Housing: I Have Housing Concerned About Future Housing: No Difficulty Paying Gas/Electric Bills: No Difficulty Paying for Meds: No Currently Unemployed: No Education: Trade/Vocational Certificate Difficulty w/ Childcare or Family Care: No Living arrangements: with family Additional living arrangements comments: Occupation/Education: occupation 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 Spiritual care concerns: No Meds Home Medications and Allergies Home Medications ?Medication ?Instructions ?Recorded ?Confirmed ?Type trazodone 50 mg tablet See Rx Instructions .Route .COMPLEX 11/16/23 08/27/24 History hydrocodone 5 mg-acetaminophen 325 1 tablet PO Q6H PRN pain 3 days 08/21/24 08/27/24 Rx mg tablet #12 tabs Allergies Allergy/AdvReac Type Severity Reaction Status Date / Time propoxyphene (From AdvReac Severe Nausea and Verified 08/27/24 12:57 Darvocet-N) Vomiting meperidine AdvReac Mild Nausea and Verified 08/27/24 12:57 Vomiting Exam Narrative: Left lower extremity examination performed shows significant swelling with intact sensation and good capillary to all toes, closed injury Assessment and Plan Assessment and plan (1) Closed left ankle fracture: Code(s): S82.892A - Other fracture of left lower leg, initial encounter for closed fracture Status: Acute Plan 44-year-old male with left ankle fracture with widening of the medial joint space significant displacement of the lateral malleolar fracture Plan is open reduction internal fixation of left ankle fracture possible syndesmotic screw placement The risks benefits alternatives complications were discussed patient include but are not limited to infection nerve or blood vessel injury DVT nonunion malunion requiring additional surgery and significantly higher risk of MRSA infection secondary to significant history for MRSA infection recently Infections for abscesses in his left hand long finger and in his left groin area most recently being left coronary treated with antibiotics as well as incision and drainage in July of this year The patient was instructed to use nasal ointment prior to the procedure he has been doing this for the past 2 days we will use vancomycin as preoperative antibiotics today and he will be sent home on Bactrim p.o. for 10 days
--- NOTE | 2024-08-30 07:06 | P.PNAN_ITS ---
Anes - Initial Pre Proc Eval Procedure: Operation Date: 08/30/24 07:30 Proposed Procedures p Open Reduction Internal Fixation Left Ankle Fracture - Daniel Molina MD Date/Time: 08/30/24 07:06 Surgeon: Daniel Molina MD Pre Op Diagnosis: Lt Ankle fx Patient Data Age: 44 Gender: M Height: 1.75 m Weight: 90.9 kg Allergies Allergy/AdvReac Type Severity Reaction Status Date / Time propoxyphene (From AdvReac Severe Nausea and Verified 08/27/24 12:57 Darvocet-N) Vomiting meperidine AdvReac Mild Nausea and Verified 08/27/24 12:57 Vomiting Home Medications ?Medication ?Instructions ?Recorded ?Confirmed ?Type trazodone 50 mg tablet See Rx Instructions .Route .COMPLEX 11/16/23 08/27/24 History hydrocodone 5 mg-acetaminophen 325 1 tablet PO Q6H PRN pain 3 days 08/21/24 08/27/24 Rx mg tablet #12 tabs Patient hx anesthesia problems: none Family hx anesthesia problems: none Results Review: All pre-operative results and documents have been reviewed as part of the pre- operative evaluation. [facility] Past Medical History Medical History History of MRSA infection Finger infection L third digit Torsion, testicular 2005 Kidney stone complicated by sepsis; October 2023 Surgical History Surgical History History of intestinal surgery H/O hernia repair Family History Family History Mother , of Liver failure Liver failure Father , work accident No problems noted. Social History Social History Social History: Smoking packs per day: 0.5 Smoking cigarettes per day: 10.0 Years smoked: 10 Smoking pack-years: 5.00 Smoking status: Current every day smoker Tobacco type: cigarettes Additional smoking assessment comments: Down to 5 or 6 cigarettes a day Alcohol intake: current Drinks per week: 2 Alcohol use details: Drinks beer Substance use: never Substance use type: does not use Do You Feel Safe in your Home?: Yes Lack of Transportation: No Lack of Food: Never True Current Housing: I Have Housing Concerned About Future Housing: No Difficulty Paying Gas/Electric Bills: No Difficulty Paying for Meds: No Currently Unemployed: No Education: Trade/Vocational Certificate Difficulty w/ Childcare or Family Care: No Living arrangements: with family Additional living arrangements comments: Occupation/Education: occupation 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 Informed Consent: The patient's anesthetic plan and its attendant risks and benefits were discussed with the patient/family/POA. Questions were solicited and answers provided to the satisfaction of the patient/family/POA.
[2024-08-30] MEDS: VANCOMYCIN 1,500 MG/NS 500 ML 1,500 MG/500 ML BAG 250 MG IVPB (07:15)
[2024-08-30] MEDS: LACTATED RINGERS 1,000 ML 30 ML IV CONT (07:15)
[2024-08-30] MEDS: MUPIROCIN 2% OINT 22 GM TUBE 1 APPLIC TOPICAL (07:15)
[2024-08-30] MEDS: ceFAZolin 2 GM/D5W 50 ML 2 GM/50 ML BAG IVPB (07:23)
[2024-08-30] MEDS: LIDO 1%/EPINEPHRINE 1:100,000 20 ML VIAL 30 ML INFILTRATE (08:04)
[2024-08-30] MEDS: VANCOMYCIN HCL 1,000 MG VIAL 1000 MG TOPICAL (08:42)
[2024-08-30] MEDS: fentaNYL CITRATE INJ (*CRX) 100 MCG/2 ML VIAL 25 MCG IV PUSH ×8 (09:40→11:33)
--- NOTE | 2024-08-30 09:41 | P.OP_ITS ---
Procedure Note - Detailed Date of Procedure 08/30/24 Pre-op Diagnosis Left Ankle Fracture Post-op Diagnosis Same Procedure Performed Left Ankle Open Reduction Internal Fixation Surgeon Daniel Molina MD Anesthesia General Indications Unstable Left Ankle Fracture with Medial Joint space widening Findings After reduction, the syndesmosis was stable on stress testing Description of Procedure After obtaining consent the patient the operating placed in supine position then he underwent general anesthesia. Left lower extremity was prepped and draped in the standard sterile fashion with a proximal thigh tourniquet. A time-out was performed to verify correct site of surgery correct procedure and intravenous antibiotics were administered within 1 hour of incision. Specifically Ancef along with vancomycin due to the patient's previous history of MRSA infections administered. Attention was then turned to the dorsal lateral aspect patient's left ankle. Fluoroscopy was used to verify fracture site length of incision. He had significant widening of the medial joint space on stress testing prior to incision. Prior to incision I injected 1% lidocaine with epinephrine into the incision site. I then made an incision over the lateral malleolus distal to proximal measuring approximately 10 in. Of fracture we had a very long posterior spike that was comminuted. Incision was then carried down to identify the fracture site the fracture site was then exposed the hematoma was evacuated and irrigated. Identified the posterior spike for the largest fragment and I had performed a anatomic reduction with 2 reduction clamps. Can visually see that the reduction was anatomic and perfect I used fluoroscopy to verify this also. Medial joint space was restored. After this was done I then proceeded to place 2 interfragmentary lag screws from posterior to anterior to secure the largest fragment. This was indeed secure with excellent bone purchase. I then again used fluoroscopy to verify reduction and then the length of the plate needed with positioning of the lateral plate. A 10 hole plate was used to be sure to have at least 2 cortices proximal to the fracture site. Multiple screws were then placed distally and proximally with the locking screws placed over the 3 holes over the lateral malleolus. I then irrigated copiously obtained hemostasis and placed vancomycin powder into the incision site secondary to the patient's significant history of MRSA infections 1 most recently in July in the groin area which was an abscess. Incision site was then closed with dermal sutures 2-0 Vicryl sutures in the dermal layer and then I proceeded to close the skin using a running locking suture with a 3-0 nylon suture. This was then bandaged in sterile fashion placed in a posterior splint and he was transferred to the recovery room in stable condition. Needle count as well sponge count was done at the end of the case. There were no complications. Estimated blood loss was about 50 cc. 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 He was instructed to be strict nonweightbearing on this extremity keep it elevated and to take 81 mg of aspirin twice a day for DVT prophylaxis. Estimated Blood Loss 50 Tourniquet Time Total Tourniquet Time: 54 Drains No Packing No Pathology None sent Complications No immediate complications Condition Stable Disposition PACU
[2024-08-30] MEDS: HYDROmorphone HCL INJ (*CRX) 1 MG/ML SYR 0.25 MG IV PUSH ×2 (10:13→10:18)
[2024-08-30] MEDS: oxyCODONE HCL (*CRX) 5 MG TAB IR PO (10:48)
--- NOTE | 2024-08-30 12:38 | SUR.PHASEII ---
[id number] PATIENT VERY ANXIOUS RE: PAIN. STATES TRAMADOL IS NOT STRONG ENOUGH. DR. MONGE CALLED RE: PRESCRIPTION AND STATED TRAMADOL WITH TYLENOL AND IBUPROFEN WILL BE SUFFICIENT FOR PATIENT. PATIENT AWARE AND SEEMS SOMEWHAT CALMER ABOUT IT. PATIENT MEETS ANESTHESIA CRITERIA FOR DISCHARGE. DRESSED, WAITING FOR RIDE.
== END 2024-08-30 13:00 | disposition home or self-care (01) ==
PROVIDERS: Visit Provider Orthopaedic Surgery
PROC: (CPT 27792; principal; 2024-08-30 07:30)
DX: S82.62XA Displaced fracture of lateral malleolus of left fibula, initial encounter for closed fracture (principal); F17.210 Nicotine dependence, cigarettes, uncomplicated; W01.0XXA Fall on same level from slipping, tripping and stumbling without subsequent striking against object, initial encounter; Z79.891 Long term (current) use of opiate analgesic; Z98.890 Other specified postprocedural states; Z87.442 Personal history of urinary calculi
CPT/HCPCS: 27792; 99199; A9270; C1713; J0690; J1100; J1171; J1885; J2003; J2004; J2250; J2405; J2704; J3010; J3370; J7120